=== PATIENT | female | born 2000 | race Caucasian/White ===

== ENCOUNTER 2020-06-25 10:46 | Emergency (ER) | payer OTHER ==
[2020-06-25 10:55] VITALS: RESP 18; TEMP 97.9
--- NOTE | 2020-06-25 11:07 | ED ---
General Adult HPI - General Chief complaint: Shortness of Breath Stated complaint: Asthma Time Seen by Provider: 06/25/20 10:47 Source: patient, EMS, RN notes reviewed Mode of arrival: EMS Limitations: no limitations - History of Present Illness Initial comments: 20-year-old female with a past medical history of asthma presents to the emergency room for shortness of breath. Patient woke up this morning and was short of breath. States she was having difficulty breathing. She text of her friend who was a police liaison officer and he called an ambulance for her. Patient denies cough or fever. Patient received an albuterol treatment in the ambulance and her symptoms completely resolved. Patient states she is not short of breath whatsoever at this time. Denies chest pain. States she feels back to baseline.Patient has no other complaints at this time including chest pain, abdominal pain, nausea or vomiting, headache, or visual changes. - Related Data Previous Rx's Medication Instructions Recorded Albuterol Inhaler [Ventolin Hfa 2 puff INHALATION RT-QID PRN #1 06/25/20 Inhaler] inhaler Allergies Allergy/AdvReac Type Severity Reaction Status Date / Time No Known Allergies Allergy Verified 03/02/16 18:01 Review of Systems ROS Statement: Those systems with pertinent positive or pertinent negative responses have been documented in the HPI. ROS Other: All systems not noted in ROS Statement are negative. Past Medical History Past Medical History: No Reported History History of Any Multi-Drug Resistant Organisms: None Reported Past Surgical History: No Surgical Hx Reported Past Psychological History: No Psychological Hx Reported Smoking Status: Former smoker Past Alcohol Use History: None Reported Past Drug Use History: Unable to Obtain General Exam Limitations: no limitations General appearance: alert, in no apparent distress Head exam: Present: atraumatic, normocephalic, normal inspection Eye exam: Present: normal appearance, PERRL, EOMI. Absent: scleral icterus, conjunctival injection, periorbital swelling ENT exam: Present: normal exam, mucous membranes moist Neck exam: Present: normal inspection, full ROM. Absent: tenderness, meningismus, lymphadenopathy Respiratory exam: Present: normal lung sounds bilaterally. Absent: respiratory distress, wheezes, rales, rhonchi, stridor Cardiovascular Exam: Present: regular rate, normal rhythm, normal heart sounds. Absent: systolic murmur, diastolic murmur, rubs, gallop, clicks GI/Abdominal exam: Present: soft, normal bowel sounds. Absent: distended, tenderness, guarding, rebound, rigid Extremities exam: Absent: calf tenderness (no calf tenderness or swelling bilat) Neurological exam: Present: alert Course Vital Signs 06/25/20 10:48 Temperature 97.9 F Pulse Rate 99 Respiratory 18 Rate Blood Pressure 121/88 O2 Sat by Pulse 99 Oximetry Medical Decision Making - Medical Decision Making Vitals are stable. Patient is 99% on room air. Lung sounds are clear. Patient is in no respiratory distress. She is sitting up having full conversational sentences. PERC negative, no oral contraceptives. Chest x-ray shows no acute cardiopulmonary process. At this time patient will be discharged home with inhaler given her history of asthma and she does not have an home. She will follow-up with her doctor. If she has any further shortness of breath or chest pain she will return to the emergency room. I discussed this case with attending Dr. Prado who agrees with this assessment and treatment plan. Disposition Clinical Impression: Shortness of breath, History of asthma Disposition: HOME SELF-CARE Condition: Good Instructions (If sedation given, give patient instructions): Asthma (ED) Additional Instructions: Please follow-up with your doctor in one to 2 days. If you have any worsening symptoms return to the emergency room. Prescriptions: Albuterol Inhaler [Ventolin Hfa Inhaler] 2 puff INHALATION RT-QID PRN #1 inhaler PRN Reason: Shortness Of Breath Is patient prescribed a controlled substance at d/c from ED?: No Referrals: Duncan Boss [STAFF PHYSICIAN] - 1-2 days Time of Disposition: 12:10
--- NOTE | 2020-06-25 11:36 | XR ---
EXAMINATION TYPE: XR chest 2V DATE OF EXAM: 06/25/2020 COMPARISON: NONE HISTORY: Shortness of breath. TECHNIQUE: Frontal and lateral views of the chest are obtained. FINDINGS: There is no focal air space opacity, pleural effusion, or pneumothorax seen. The cardiac silhouette size is within normal limits. The osseous structures are intact. Note is made of left-si ded arch, cardiac apex, and stomach bubble. IMPRESSION: No acute cardiopulmonary process.
[2020-06-25 12:27] VITALS: BP 122/83; PULSE 90
== END 2020-06-25 12:27 | disposition home or self-care (01) ==
LOC: EC 10:46
DX: R06.02 Shortness of breath (principal); Z87.09 Personal history of other diseases of the respiratory system; Z87.891 Personal history of nicotine dependence
CPT/HCPCS: 71046; 99285

== ENCOUNTER 2020-12-07 00:08 | Emergency (ER) | payer OTHER ==
[2020-12-07 00:12] LABS: Glucose,Whole Blood 72 mg/dL (75-99)
[2020-12-07] MEDS ORDERED: KETAMINE 10 MG/ML 20 ML VIAL IV STA (00:18)
[2020-12-07] MEDS ORDERED: ONDANSETRON 4 MG/2 ML VIAL IVP STA (00:20)
[2020-12-07] MEDS ORDERED: SODIUM CHLORIDE 0.9% 1,000 ML IV STA (00:21)
[2020-12-07] MEDS ORDERED: SODIUM CHLORIDE 0.9% 2,000 ML IV STA (00:21)
[2020-12-07] MEDS ORDERED: SODIUM CHLORIDE 0.9% 500 ML 500 ML IV STA (00:21)
[2020-12-07] MEDS ORDERED: IPRATROPIUM 0.5 MG/2.5 ML NEBU INHALATION STA ×2 (00:23→00:33)
[2020-12-07] MEDS ORDERED: TERBUTALINE 1 MG/ML VIAL SQ STA (00:24)
[2020-12-07] MEDS ORDERED: ALBUTEROL NEBULIZED 2.5 MG/3 ML INHALATION STA (00:31)
--- NOTE | 2020-12-07 00:37 | ED ---
Altered Mental Status HPI - General Chief Complaint: Altered Mental Status Stated Complaint: unresponsive Time Seen by Provider: 12/07/20 00:21 Source: patient, EMS, RN notes reviewed, old records reviewed Mode of arrival: EMS Limitations: altered mental status, physical limitation - History of Present Illness Initial Comments: This is a 20-year-old female who was unable to prevent history of presenting by EMS as a priority one patient. Patient's primary 1 secondary to unresponsiveness significant work of breathing and being obtunded. Patient is u nresponsive on arrival she is able to amply but really has no reaction to questioning. EMS states roommates who were with her son earlier in the day and then again tonight in this state, difficulty breathing with unresponsiveness. Oxygen was initially a little initially difficult to obtain per EMS. MD Complaint: altered mental status, decreased responsiveness, other (unr esponsive) -: unknown Severity: severe Consistency of Symptoms: constant Context: unknown (recent difficult month), other (asthma history) Associated Symptoms: shortness of breath Treatments Prior to Arrival: oxygen - Related Data Previous Rx's Medication Instructions Recorded Albuterol Inhaler [Ventolin Hfa 2 puff INHALATION RT-QID PRN #1 06/25/20 Inhaler] inhaler Allergies Allergy/AdvReac Type Severity Reaction Status Date / Time No Known Allergies Allergy Verified 12/07/20 00:19 Review of Systems ROS Statement: Those systems with pertinent positive or pertinent negative responses have been documented in the HPI. ROS Other: All systems not noted in ROS Statement are negative. Past Medical History Past Medical History: No Reported History History of Any Multi-Drug Resistant Organisms: None Reported Past Surgical History: No Surgical Hx Reported Past Psychological History: No Psychological Hx Reported Smoking Status: Former smoker Past Alcohol Use History: None Reported Past Drug Use History: Unable to Obtain General Exam Limitations: altered mental status, physical limitation General appearance: obtunded, in distress, cachectic Head exam: Present: atraumatic, normocephalic, normal inspection Eye exam: Present: normal appearance, PERRL, EOMI. Absent: scleral icterus, conjunctival injection, periorbital swelling ENT exam: Present: normal exam, mucous membranes dry Neck exam: Present: normal inspection. Absent: tenderness, meningismus, lymphadenopathy Respiratory exam: Present: normal lung sounds bilaterally. Absent: respiratory distress, wheezes, rales, rhonchi, stridor Cardiovascular Exam: Present: tachycardia, normal heart sounds. Absent: systolic murmur, diastolic murmur, rubs, gallop, clicks GI/Abdominal exam: Present: soft, normal bowel sounds. Absent: distended, tenderness, guarding, rebound, rigid Extremities exam: Present: normal inspection, full ROM, normal capillary refill. Absent: tenderness, pedal edema, joint swelling, calf tenderness Back exam: Present: normal inspection Neurological exam: Present: altered Skin exam: Present: dry, intact, normal color, pallor. Absent: warm (Will), rash Course Vital Signs 12/07/20 12/07/20 12/07/20 00:09 00:39 00:40 Temperature 102.1 F H Pulse Rate 124 H 134 H 128 H Respiratory 34 H 24 Rate Blood Pressure 140/94 115/63 O2 Sat by Pulse 90 L 100 Oximetry 12/07/20 12/07/20 12/07/20 01:37 02:27 03:32 Temperature Pulse Rate 130 H 124 H Respiratory 34 H Rate Blood Pressure O2 Sat by Pulse Oximetry 12/07/20 12/07/20 03:45 03:50 Temperature 95.9 F L Pulse Rate 125 H 129 H Respiratory 26 H Rate Blood Pressure 102/63 O2 Sat by Pulse 100 Oximetry - Reevaluation(s) Reevaluation #1: 12/07/20 04:42 Medical record is reviewed Reevaluation #2: 12/07/20 04:42 Patient is significantly obtunded upon arrival secondary severe respiratory distress and is intubated Reevaluation #3: 12/07/20 04:43 Further history obtained from brother states that family life his been difficult May both recently just lost her parents - Consultations Consultation #1: Spoke with [facility] Jaimes will agree to transfer except Medical Decision Making - Medical Decision Making 20-year-old female DF for evaluation patient is found to be in severe respiratory distress with respiratory failure and obtundation, could be underlying hypoxia and covert with status asthmaticus, patient is given antibiotics initially maintained on intubation secondary to severe for distress and inability to protect her airway. Patient remains altered and significant findings on computed tomography scan anoxic brain injury to be transferred [facility] Jaimes for further evaluation management. - Lab Data Result diagrams: 12/07/20 00:29 12/07/20 00:29 Lab Results 12/07/20 12/07/20 12/07/20 Range/Units 00:11 00:29 00:29 WBC 29.3 H (4.0-11.0) k/uL RBC 5.01 (3.80-5.40) m/uL Hgb 14.8 (11.4-16.0) gm/dL Hct 42.6 (34.0-46.0) % MCV 85.1 (80.0-100.0) fL MCH 29.6 (25.0-35.0) pg MCHC 34.8 (31.0-37.0) g/dL RDW 12.4 (11.5-15.5) % Plt Count 395 (150-450) k/uL MPV 7.3 Neutrophils % 78 % Lymphocytes % 16 % Monocytes % 4 % Eosinophils % 1 % Basophils % 1 % Neutrophils # 22.7 H (1.3-7.7) k/uL Lymphocytes # 4.6 (1.0-4.8) k/uL Monocytes # 1.2 H (0-1.0) k/uL Eosinophils # 0.3 (0-0.7) k/uL Basophils # 0.2 (0-0.2) k/uL PT 12.6 H (9.0-12.0) sec INR 1.2 H (<1.2) APTT 28.1 (22.0-30.0) sec D-Dimer 20.89 H (<0.60) mg/L FEU Sample Site ABG pH (7.35-7.45) ABG pCO2 (35-45) mmHg ABG pO2 (83-108) mmHg ABG HCO3 (21-25) mmol/L ABG Total CO2 (19-24) mmol/L ABG O2 Saturation (94-97) % ABG Base Excess mmol/L Isma Test VBG pH (7.31-7.41) VBG pCO2 (37-51) mmHg VBG HCO3 (24-28) mmol/L Carbon Monoxide, Quant (<10.0) % FiO2 % Sodium (137-145) mmol/L Potassium (3.5-5.1) mmol/L Chloride (98-107) mmol/L Carbon Dioxide (22-30) mmol/L Anion Gap mmol/L BUN (7-17) mg/dL Creatinine (0.52-1.04) mg/dL Est GFR (CKD-EPI)AfAm (>60 ml/min/1.73 sqM) Est GFR (CKD-EPI)NonAf (>60 ml/min/1.73 sqM) Glucose (74-99) mg/dL POC Glucose (mg/dL) 72 L (75-99) mg/dL POC Glu Clothing Room Supervisor ID Christine Ibarra Lactic Ac Sepsis Rflx Plasma Lactic Acid Oleg (0.7-2.0) mmol/L Calcium (8.4-10.2) mg/dL Magnesium (1.6-2.3) mg/dL Total Bilirubin (0.2-1.3) mg/dL AST (14-36) U/L ALT (4-34) U/L Alkaline Phosphatase (38-126) U/L Ammonia (<30) umol/L Lactate Dehydrogenase (313-618) U/L Troponin I (0.000-0.034) ng/mL C-Reactive Protein (<1.0) mg/dL NT-Pro-B Natriuret Pep pg/mL Total Protein (6.3-8.2) g/dL Albumin (3.5-5.0) g/dL TSH (0.465-4.680) mIU/L Free T4 (0.78-2.19) ng/dL Urine HCG, Qual (Not Detectd) Salicylates mg/dL Urine Opiates Screen (NotDetected) Ur Oxycodone Screen (NotDetected) Urine Methadone Screen (NotDetected) Ur Propoxyphene Screen (NotDetected) Acetaminophen ug/mL Ur Barbiturates Screen (NotDetected) U Tricyclic Antidepress (NotDetected) Ur Phencyclidine Scrn (NotDetected) Ur Amphetamines Screen (NotDetected) U Methamphetamines Scrn (NotDetected) U Benzodiazepines Scrn (NotDetected) Urine Cocaine Screen (NotDetected) U Marijuana (THC) Screen (NotDetected) Serum Alcohol mg/dL Coronavirus (PCR) (Not Detectd) 12/07/20 12/07/20 12/07/20 Range/Units 00:29 00:29 00:29 WBC (4.0-11.0) k/uL RBC (3.80-5.40) m/uL Hgb (11.4-16.0) gm/dL Hct (34.0-46.0) % MCV (80.0-100.0) fL MCH (25.0-35.0) pg MCHC (31.0-37.0) g/dL RDW (11.5-15.5) % Plt Count (150-450) k/uL MPV Neutrophils % % Lymphocytes % % Monocytes % % Eosinophils % % Basophils % % Neutrophils # (1.3-7.7) k/uL Lymphocytes # (1.0-4.8) k/uL Monocytes # (0-1.0) k/uL Eosinophils # (0-0.7) k/uL Basophils # (0-0.2) k/uL PT (9.0-12.0) sec INR (<1.2) APTT (22.0-30.0) sec D-Dimer (<0.60) mg/L FEU Sample Site ABG pH (7.35-7.45) ABG pCO2 (35-45) mmHg ABG pO2 (83-108) mmHg ABG HCO3 (21-25) mmol/L ABG Total CO2 (19-24) mmol/L ABG O2 Saturation (94-97) % ABG Base Excess mmol/L Isma Test VBG pH (7.31-7.41) VBG pCO2 (37-51) mmHg VBG HCO3 (24-28) mmol/L Carbon Monoxide, Quant (<10.0) % FiO2 % Sodium 138 (137-145) mmol/L Potassium 3.7 (3.5-5.1) mmol/L Chloride 107 (98-107) mmol/L Carbon Dioxide 18 L (22-30) mmol/L Anion Gap 13 mmol/L BUN 8 (7-17) mg/dL Creatinine 0.62 (0.52-1.04) mg/dL Est GFR (CKD-EPI)AfAm >90 (>60 ml/min/1.73 sqM) Est GFR (CKD-EPI)NonAf >90 (>60 ml/min/1.73 sqM) Glucose 66 L (74-99) mg/dL POC Glucose (mg/dL) (75-99) mg/dL POC Glu Clothing Room Supervisor ID Lactic Ac Sepsis Rflx Plasma Lactic Acid Oleg 5.1 H* (0.7-2.0) mmol/L Calcium 8.7 (8.4-10.2) mg/dL Magnesium 1.7 (1.6-2.3) mg/dL Total Bilirubin 1.4 H (0.2-1.3) mg/dL AST 43 H (14-36) U/L ALT 15 (4-34) U/L Alkaline Phosphatase 78 (38-126) U/L Ammonia 25 (<30) umol/L Lactate Dehydrogenase 1247 H (313-618) U/L Troponin I (0.000-0.034) ng/mL C-Reactive Protein 7.9 H (<1.0) mg/dL NT-Pro-B Natriuret Pep pg/mL Total Protein 6.6 (6.3-8.2) g/dL Albumin 3.6 (3.5-5.0) g/dL TSH (0.465-4.680) mIU/L Free T4 (0.78-2.19) ng/dL Urine HCG, Qual (Not Detectd) Salicylates <1.0 mg/dL Urine Opiates Screen (NotDetected) Ur Oxycodone Screen (NotDetected) Urine Methadone Screen (NotDetected) Ur Propoxyphene Screen (NotDetected) Acetaminophen <10.0 ug/mL Ur Barbiturates Screen (NotDetected) U Tricyclic Antidepress (NotDetected) Ur Phencyclidine Scrn (NotDetected) Ur Amphetamines Screen (NotDetected) U Methamphetamines Scrn (NotDetected) U Benzodiazepines Scrn (NotDetected) Urine Cocaine Screen (NotDetected) U Marijuana (THC) Screen (NotDetected) Serum Alcohol <10 mg/dL Coronavirus (PCR) Not Detected (Not Detectd) 12/07/20 12/07/20 12/07/20 Range/Units 00:29 00:29 00:30 WBC (4.0-11.0) k/uL RBC (3.80-5.40) m/uL Hgb (11.4-16.0) gm/dL Hct (34.0-46.0) % MCV (80.0-100.0) fL MCH (25.0-35.0) pg MCHC (31.0-37.0) g/dL RDW (11.5-15.5) % Plt Count (150-450) k/uL MPV Neutrophils % % Lymphocytes % % Monocytes % % Eosinophils % % Basophils % % Neutrophils # (1.3-7.7) k/uL Lymphocytes # (1.0-4.8) k/uL Monocytes # (0-1.0) k/uL Eosinophils # (0-0.7) k/uL Basophils # (0-0.2) k/uL PT (9.0-12.0) sec INR (<1.2) APTT (22.0-30.0) sec D-Dimer (<0.60) mg/L FEU Sample Site ABG pH (7.35-7.45) ABG pCO2 (35-45) mmHg ABG pO2 (83-108) mmHg ABG HCO3 (21-25) mmol/L ABG Total CO2 (19-24) mmol/L ABG O2 Saturation (94-97) % ABG Base Excess mmol/L Isma Test VBG pH (7.31-7.41) VBG pCO2 (37-51) mmHg VBG HCO3 (24-28) mmol/L Carbon Monoxide, Quant (<10.0) % FiO2 % Sodium (137-145) mmol/L Potassium (3.5-5.1) mmol/L Chloride (98-107) mmol/L Carbon Dioxide (22-30) mmol/L Anion Gap mmol/L BUN (7-17) mg/dL Creatinine (0.52-1.04) mg/dL Est GFR (CKD-EPI)AfAm (>60 ml/min/1.73 sqM) Est GFR (CKD-EPI)NonAf (>60 ml/min/1.73 sqM) Glucose (74-99) mg/dL POC Glucose (mg/dL) (75-99) mg/dL POC Glu Clothing Room Supervisor ID Lactic Ac Sepsis Rflx Plasma Lactic Acid Oleg (0.7-2.0) mmol/L Calcium (8.4-10.2) mg/dL Magnesium (1.6-2.3) mg/dL Total Bilirubin (0.2-1.3) mg/dL AST (14-36) U/L ALT (4-34) U/L Alkaline Phosphatase (38-126) U/L Ammonia (<30) umol/L Lactate Dehydrogenase (313-618) U/L Troponin I 0.238 H* (0.000-0.034) ng/mL C-Reactive Protein (<1.0) mg/dL NT-Pro-B Natriuret Pep 802 pg/mL Total Protein (6.3-8.2) g/dL Albumin (3.5-5.0) g/dL TSH (0.465-4.680) mIU/L Free T4 (0.78-2.19) ng/dL Urine HCG, Qual (Not Detectd) Salicylates mg/dL Urine Opiates Screen Not Detected (NotDetected) Ur Oxycodone Screen Not Detected (NotDetected) Urine Methadone Screen Not Detected (NotDetected) Ur Propoxyphene Screen Not Detected (NotDetected) Acetaminophen ug/mL Ur Barbiturates Screen Not Detected (NotDetected) U Tricyclic Antidepress Not Detected (NotDetected) Ur Phencyclidine Scrn Not Detected (NotDetected) Ur Amphetamines Screen Not Detected (NotDetected) U Methamphetamines Scrn Not Detected (NotDetected) U Benzodiazepines Scrn Not Detected (NotDetected) Urine Cocaine Screen Not Detected (NotDetected) U Marijuana (THC) Screen Detected H (NotDetected) Serum Alcohol mg/dL Coronavirus (PCR) (Not Detectd) 12/07/20 12/07/20 12/07/20 Range/Units 00:43 00:44 01:18 WBC (4.0-11.0) k/uL RBC (3.80-5.40) m/uL Hgb (11.4-16.0) gm/dL Hct (34.0-46.0) % MCV (80.0-100.0) fL MCH (25.0-35.0) pg MCHC (31.0-37.0) g/dL RDW (11.5-15.5) % Plt Count (150-450) k/uL MPV Neutrophils % % Lymphocytes % % Monocytes % % Eosinophils % % Basophils % % Neutrophils # (1.3-7.7) k/uL Lymphocytes # (1.0-4.8) k/uL Monocytes # (0-1.0) k/uL Eosinophils # (0-0.7) k/uL Basophils # (0-0.2) k/uL PT (9.0-12.0) sec INR (<1.2) APTT (22.0-30.0) sec D-Dimer (<0.60) mg/L FEU Sample Site ABG pH (7.35-7.45) ABG pCO2 (35-45) mmHg ABG pO2 (83-108) mmHg ABG HCO3 (21-25) mmol/L ABG Total CO2 (19-24) mmol/L ABG O2 Saturation (94-97) % ABG Base Excess mmol/L Isma Test VBG pH (7.31-7.41) VBG pCO2 (37-51) mmHg VBG HCO3 (24-28) mmol/L Carbon Monoxide, Quant (<10.0) % FiO2 % Sodium (137-145) mmol/L Potassium (3.5-5.1) mmol/L Chloride (98-107) mmol/L Carbon Dioxide (22-30) mmol/L Anion Gap mmol/L BUN (7-17) mg/dL Creatinine (0.52-1.04) mg/dL Est GFR (CKD-EPI)AfAm (>60 ml/min/1.73 sqM) Est GFR (CKD-EPI)NonAf (>60 ml/min/1.73 sqM) Glucose (74-99) mg/dL POC Glucose (mg/dL) (75-99) mg/dL POC Glu Clothing Room Supervisor ID Lactic Ac Sepsis Rflx Y Plasma Lactic Acid Oleg (0.7-2.0) mmol/L Calcium (8.4-10.2) mg/dL Magnesium (1.6-2.3) mg/dL Total Bilirubin (0.2-1.3) mg/dL AST (14-36) U/L ALT (4-34) U/L Alkaline Phosphatase (38-126) U/L Ammonia (<30) umol/L Lactate Dehydrogenase (313-618) U/L Troponin I (0.000-0.034) ng/mL C-Reactive Protein (<1.0) mg/dL NT-Pro-B Natriuret Pep pg/mL Total Protein (6.3-8.2) g/dL Albumin (3.5-5.0) g/dL TSH 7.340 H (0.465-4.680) mIU/L Free T4 1.12 (0.78-2.19) ng/dL Urine HCG, Qual Not Detected (Not Detectd) Salicylates mg/dL Urine Opiates Screen (NotDetected) Ur Oxycodone Screen (NotDetected) Urine Methadone Screen (NotDetected) Ur Propoxyphene Screen (NotDetected) Acetaminophen ug/mL Ur Barbiturates Screen (NotDetected) U Tricyclic Antidepress (NotDetected) Ur Phencyclidine Scrn (NotDetected) Ur Amphetamines Screen (NotDetected) U Methamphetamines Scrn (NotDetected) U Benzodiazepines Scrn (NotDetected) Urine Cocaine Screen (NotDetected) U Marijuana (THC) Screen (NotDetected) Serum Alcohol mg/dL Coronavirus (PCR) (Not Detectd) 12/07/20 12/07/20 12/07/20 Range/Units 01:38 01:38 01:38 WBC (4.0-11.0) k/uL RBC (3.80-5.40) m/uL Hgb (11.4-16.0) gm/dL Hct (34.0-46.0) % MCV (80.0-100.0) fL MCH (25.0-35.0) pg MCHC (31.0-37.0) g/dL RDW (11.5-15.5) % Plt Count (150-450) k/uL MPV Neutrophils % % Lymphocytes % % Monocytes % % Eosinophils % % Basophils % % Neutrophils # (1.3-7.7) k/uL Lymphocytes # (1.0-4.8) k/uL Monocytes # (0-1.0) k/uL Eosinophils # (0-0.7) k/uL Basophils # (0-0.2) k/uL PT (9.0-12.0) sec INR (<1.2) APTT (22.0-30.0) sec D-Dimer (<0.60) mg/L FEU Sample Site rbrac ABG pH 7.15 L* (7.35-7.45) ABG pCO2 42 (35-45) mmHg ABG pO2 >400 H (83-108) mmHg ABG HCO3 15 L (21-25) mmol/L ABG Total CO2 16 L (19-24) mmol/L ABG O2 Saturation 100.0 H (94-97) % ABG Base Excess -14.3 mmol/L Isma Test Yes VBG pH 7.06 L* (7.31-7.41) VBG pCO2 48 (37-51) mmHg VBG HCO3 13 L (24-28) mmol/L Carbon Monoxide, Quant 2.4 (<10.0) % FiO2 100 % Sodium (137-145) mmol/L Potassium (3.5-5.1) mmol/L Chloride (98-107) mmol/L Carbon Dioxide (22-30) mmol/L Anion Gap mmol/L BUN (7-17) mg/dL Creatinine (0.52-1.04) mg/dL Est GFR (CKD-EPI)AfAm (>60 ml/min/1.73 sqM) Est GFR (CKD-EPI)NonAf (>60 ml/min/1.73 sqM) Glucose (74-99) mg/dL POC Glucose (mg/dL) (75-99) mg/dL POC Glu Clothing Room Supervisor ID Lactic Ac Sepsis Rflx Plasma Lactic Acid Oleg (0.7-2.0) mmol/L Calcium (8.4-10.2) mg/dL Magnesium (1.6-2.3) mg/dL Total Bilirubin (0.2-1.3) mg/dL AST (14-36) U/L ALT (4-34) U/L Alkaline Phosphatase (38-126) U/L Ammonia (<30) umol/L Lactate Dehydrogenase (313-618) U/L Troponin I (0.000-0.034) ng/mL C-Reactive Protein (<1.0) mg/dL NT-Pro-B Natriuret Pep pg/mL Total Protein (6.3-8.2) g/dL Albumin (3.5-5.0) g/dL TSH (0.465-4.680) mIU/L Free T4 (0.78-2.19) ng/dL Urine HCG, Qual (Not Detectd) Salicylates mg/dL Urine Opiates Screen (NotDetected) Ur Oxycodone Screen (NotDetected) Urine Methadone Screen (NotDetected) Ur Propoxyphene Screen (NotDetected) Acetaminophen ug/mL Ur Barbiturates Screen (NotDetected) U Tricyclic Antidepress (NotDetected) Ur Phencyclidine Scrn (NotDetected) Ur Amphetamines Screen (NotDetected) U Methamphetamines Scrn (NotDetected) U Benzodiazepines Scrn (NotDetected) Urine Cocaine Screen (NotDetected) U Marijuana (THC) Screen (NotDetected) Serum Alcohol mg/dL Coronavirus (PCR) (Not Detectd) - EKG Data -: EKG Interpreted by Me (EKG shows sinus tachycardia 138 VA 130 QRS 70 QTc 472) - Radiology Data Radiology results: report reviewed (Chest x-ray shows bilateral pulmonary infiltrates, CT brain C-spine shows anoxic brain injury, CTA chest is negative for PE but does show bilateral pulmonary infiltrates as well as pneumomediastinum), image reviewed Critical Care Time Critical Care Time: Yes Total Critical Care Time: 95 Disposition Clinical Impression: Altered mental status, Sepsis with acute hypoxic respiratory failure, Asthmaticus, status, Delirium due to general medical condition, Anoxic brain injury, Lactic acidosis, Fever, Leukocytosis, Pneumomediastinum Disposition: OTHER INSTITUTION NOT DEFINED Condition: Critical Is patient prescribed a controlled substance at d/c from ED?: No Referrals: None,Stated [Primary Care Provider] - 1-2 days - Out of Hospital Transfer - Req. Specs Out of Hospital Transfer - Requested Specifics: Other Emergency Center ([facility]
[2020-12-07] MEDS ORDERED: methylPREDNISolone SOD SUCCI 125 MG/2 ML VIAL IV STA (00:41)
--- NOTE | 2020-12-07 00:42 | XR ---
EXAM: XR Chest, 1 View CLINICAL HISTORY: ITS.REASON XR Reason: Suspected COVID-19 pneumonia TECHNIQUE: Frontal view of the chest. COMPARISON: No relevant prior studies available. FINDINGS: Endotracheal tube terminates 4.5 cm above the level of the nel. Orogastric tube terminates below [id number] in the left upper quadrant, likely residing in the body of the stomach. Mild bilateral perihilar patchy opacities. No pleural effusions or pneumothorax. No displaced fractures. IMPRESSION: 1. Endotracheal tube terminates 4.5 cm above the level of the nel. Orogastric tube terminates below [id number] in the left upper quadrant, likely residing in the body of the stomach. 2. Mild bilateral perihilar patchy opacities compatible with multifocal infection.
[2020-12-07] MEDS ORDERED: AZITHROMYCIN 500 MG in SODIUM CHLORIDE 0.9% 250 ML IVPB ONE (00:45)
[2020-12-07 00:51] LABS: Basophils # (A) 0.2 k/uL (0-0.2); Basophils % (A) 1 %; Eosinophils # (A) 0.3 k/uL (0-0.7); Eosinophils % (A) 1 %; HCT 42.6 % (34.0-46.0); HGB 14.8 gm/dL (11.4-16.0); Lymphocytes # (A) 4.6 k/uL (1.0-4.8); Lymphocytes % (A) 16 %; MCH 29.6 pg (25.0-35.0); MCHC 34.8 g/dL (31.0-37.0); MCV 85.1 fL (80.0-100.0); Mean Platelet Volume 7.3; Monocytes # (A) 1.2 k/uL (0-1.0); Monocytes % (A) 4 %; Neutrophils # (A) 22.7 k/uL (1.3-7.7); Neutrophils % (A) 78 %; Platelet Count 395 k/uL (150-450); RBC 5.01 m/uL (3.80-5.40); RDW 12.4 % (11.5-15.5); WBC 29.3 k/uL (4.0-11.0)
[2020-12-07] MEDS ORDERED: IBUPROFEN IV 400 MG in SODIUM CHLORIDE 0.9% 100 ML IV ONE (01:00)
[2020-12-07] MEDS ORDERED: ACETAMINOPHEN IV (For NPO) 750 MG in EMPTY BAG 1 BAG IVPB ONE (01:00)
[2020-12-07 01:04] LABS: ALT 15 U/L (4-34); Acetaminophen <10.0 ug/mL; African American GFR (CKD) >90 (>60 ml/min/1.73 sqM); Albumin 3.6 g/dL (3.5-5.0); Alcohol <10 mg/dL; Anion Gap 13 mmol/L; Blood Urea Nitrogen 8 mg/dL (7-17); C Reactive Protein 7.9 mg/dL (<1.0); Calcium 8.7 mg/dL (8.4-10.2); Carbon Dioxide 18 mmol/L (22-30); Chloride 107 mmol/L (98-107); Glucose 66 mg/dL (74-99); Non-African American GFR(CKD) >90 (>60 ml/min/1.73 sqM); Salicylate <1.0 mg/dL; Sodium 138 mmol/L (137-145); Total Bilirubin 1.4 mg/dL (0.2-1.3); Total Protein 6.6 g/dL (6.3-8.2)
[2020-12-07 01:13] LABS: Amphetamine Screen,Urine Not Detected (NotDetected); Barbiturate Screen,Urine Not Detected (NotDetected); Benzodiazepines Screen,Urine Not Detected (NotDetected); Cocaine Screen,Urine Not Detected (NotDetected); Methadone Screen, Urine Not Detected (NotDetected); Opiate Screen,Urine Not Detected (NotDetected); Oxycodone Screen, Urine Not Detected (NotDetected); Phencyclidine Screen,Urine Not Detected (NotDetected); Tricyclic Antidepressant,Urine Not Detected (NotDetected); Urn Cannabinoid Scrn Detected (NotDetected)
[2020-12-07 01:16] LABS: AST 43 U/L (14-36); Alkaline Phosphatase 78 U/L (38-126); LDH 1247 U/L (313-618); Magnesium 1.7 mg/dL (1.6-2.3); Potassium 3.7 mmol/L (3.5-5.1)
[2020-12-07 01:17] LABS: INR 1.2 (<1.2); Partial Thromboplastin Time 28.1 sec (22.0-30.0); Prothrombin Time 12.6 sec (9.0-12.0)
[2020-12-07 01:18] LABS: D-Dimer 20.89 mg/L FEU (<0.60); Lactic Acid, Venous 5.1 mmol/L (0.7-2.0)
[2020-12-07] MEDS ORDERED: DEXTROSE 50% SYRINGE 50 ML IVP STA (01:18)
[2020-12-07] MEDS ORDERED: DEXTROSE 5%-0.45% NACL 1,000 ML IV ONE (01:18)
[2020-12-07] MEDS ORDERED: cefTRIAXone IN SWFI 1,000 MG/10 ML SYRINGE IVP ONE (01:30)
--- NOTE | 2020-12-07 01:36 | CT ---
EXAM: CT Head Without Intravenous Contrast CLINICAL HISTORY: ITS.REASON CT Reason: ams TECHNIQUE: Axial computed tomography images of the head/brain without intravenous contrast. CTDI is 27.035 mGy and DLP is 638.1 mGy-cm. This CT exam was performed using one or more of the following dose reduction techniques: automated exposure control, adjustment of the mA and/or kV according to patient size, and/or use of iterative reconstruction technique. COMPARISON: No relevant prior studies available. FINDINGS: Brain: Unremarkable. No hemorrhage. No significant white matter disease. No edema. Cowan-white differentiation is preserved throughout the cerebral hemispheres. Ventricles: Mild diffuse sulcal effacement with effacement of the basilar cisterns . No ventriculomegaly. Bones/joints: Unremarkable. No acute fracture. Soft tissues: Unremarkable. Sinuses: Fluid opacification of the nasopharynx and mild opacification of the bilateral maxillary sinus and ethmoid air cells and sphenoid sinus compatible with recent intubation.. Mastoid air cells: Unremarkable as visualized. No mastoid effusion. IMPRESSION: There is mild diffuse sulcal effacement with effacement of the basilar cisterns suggestive of hypoxic-ischemic injury. MRI may be obtained for more sensitive evaluation if clinically indicated. EXAM: CT Cervical Spine Without Intravenous Contrast CLINICAL HISTORY: ITS.REASON CT Reason: ams TECHNIQUE: Axial computed tomography images of the cervical spine without intravenous contrast. CTDI is 27.035 mGy and DLP is 638.1 mGy-cm. This CT exam was performed using one or more of the following dose reduction techniques: automated exposure control, adjustment of the mA and/or kV according to patient size, and/or use of iterative reconstruction technique. COMPARISON: No relevant prior studies available. FINDINGS: Vertebrae: Unremarkable. No acute fracture. Vertebral body heights are maintained. No spondylolisthesis. Discs/spinal canal/neural foramina: No acute findings. No spinal canal stenosis. No significant spinal canal or osseous foraminal narrowing. Soft tissues: Endotracheal tube and orogastric tube in place. IMPRESSION: No CT evidence of acute traumatic injury to the cervical spine. <MYCVCSECTION> Communications: 12/07/20 01:33 Call Doctor Regarding Other, called Dr. Salinas on 12/07 01:34 (-04:00)
[2020-12-07] MEDS: MAGNESIUM SULFATE-D5W PMX 1 GM in DEXTROSE/WATER 1 100ML.BAG IVPB SCH ×2 (01:43→02:52)
[2020-12-07 01:53] LABS: ABG Base Excess -14.3 mmol/L; ABG HCO3 15 mmol/L (21-25); ABG PCO2 42 mmHg (35-45); ABG PO2 >400 mmHg (83-108); ABG TCO2 16 mmol/L (19-24); Allen Test Performed? Yes
[2020-12-07 02:05] LABS: ABG PH 7.15 (7.35-7.45)
[2020-12-07] MEDS ORDERED: MIDAZOLAM 1 MG/ML 5 ML VIAL IV STA ×2 (02:46→06:08)
[2020-12-07 02:49] LABS: VBG PH 7.06 (7.31-7.41)
[2020-12-07] MEDS ORDERED: IPRATROPIUM-ALBUTEROL 3 ML NEB INHALATION STA (03:28)
--- NOTE | 2020-12-07 03:51 | CT ---
EXAM: CT Angiography Chest With Intravenous Contrast CLINICAL HISTORY: ITS.REASON CT Reason: PE TECHNIQUE: Axial computed tomographic angiography images of the chest with intravenous contrast. CTDI is 7.17 mGy and DLP is 229.2 mGy-cm. This CT exam was performed using one or more of the following dose reduction techniques: automated exposure control, adjustment of the mA and/or kV according to patient size, and/or use of iterative reconstruction technique. MIP reconstructed images were created and reviewed. COMPARISON: No relevant prior studies available. FINDINGS: Pulmonary arteries: Unremarkable. No pulmonary embolism. Aorta: No acute findings. No thoracic aortic aneurysm. Lungs: Unremarkable. No mass. No consolidation. Pleural space: Unremarkable. No significant effusion. No pneumothorax. Heart: Trace pneumomediastinum with air tracking adjacent to the trachea, bilateral mainstem bronchi, right lower lobe bronchi and into the superior mediastinum. No cardiomegaly. No significant pericardial effusion. No evidence of RV dysfunction. Bones/joints: No acute fracture. No dislocation. Soft tissues: Unremarkable. Lymph nodes: Unremarkable. No enlarged lymph nodes. Lines and tubes: Endotracheal tube in place terminating above the level of the nel. Orogastric tube terminates in the body of the stomach. IMPRESSION: 1. No acute pulmonary embolism. 2. Trace pneumomediastinum with air tracking adjacent to the trachea, bilateral mainstem bronchi, right lower lobe bronchi and into the superior mediastinum. 3. Patchy peripheral areas of ground-glass and nodular consolidation compatible with multifocal infection, consistent with viral infection.
[2020-12-07 03:52] LABS: T4, Free (Free Thyroxine) 1.12 ng/dL (0.78-2.19)
[2020-12-07 05:38] VITALS: BP 99/67; PULSE 123; RESP 26; TEMP 97
[2020-12-07] MEDS ORDERED: fentaNYL (PF) 50 MCG/ML 2 ML AMP IVP STA (05:39)
[2020-12-07] MEDS ORDERED: methylPREDNISolone SOD SUCCI 125 MG/2 ML VIAL IV SCH (06:00)
[2020-12-07 13:15] LABS: Ferritin 102.6 ng/mL (10.0-291.0)
== END 2020-12-07 06:11 | disposition other institution (70) ==
LOC: EC 00:08
DX: A41.9 Sepsis, unspecified organism (principal); R65.20 Severe sepsis without septic shock; J96.01 Acute respiratory failure with hypoxia; F05 Delirium due to known physiological condition; J98.2 Interstitial emphysema; R41.82 Altered mental status, unspecified; E87.2 Acidosis; J45.909 Unspecified asthma, uncomplicated; Z87.891 Personal history of nicotine dependence
CPT/HCPCS: 31500; 99291; 99292; 96372; 96365; 96366; 96375 ×9; 96368; 96367; 96361; 36415; 94640; 36600; 94002; 94644; 93005; 85379; 84439; 83880; 80053; 84443; 82728; 82140; 82375; 82805; 82803; 83605; 83615; 83735; 84484; 85025; 85610; 85730; 86140; 81025; 87040; 80306; 80143; 87070; 87205; 84145; 87635; 80179; 71045; 72125; 70450; 71275; G0480; J3105; J2930; J2405; J0456; J0696; J2250; J3010; J3475; J0131; J1741; Q9967; 80320

== ENCOUNTER 2021-03-07 15:44 | Emergency (ER) | payer OTHER ==
[2021-03-07] MEDS ORDERED: ACETAMINOPHEN TAB 500 MG TAB PO STA (16:13)
[2021-03-07] MEDS ORDERED: IBUPROFEN 600 MG TAB PO STA (16:13)
--- NOTE | 2021-03-07 17:45 | XR ---
EXAMINATION TYPE: XR chest 2V DATE OF EXAM: 03/07/2021 COMPARISON: 12/07/2020. HISTORY: Cough and fever. TECHNIQUE: Frontal and lateral views of the chest are obtained. FINDINGS: There is left infrahilar opacity. No pleural effusion, or pneumothorax seen. The cardiac silhouette size is within normal limits. The osseous structures are intact. IMPRESSION: Left bibasilar infiltrate in the appropriate clinical setting.
--- NOTE | 2021-03-07 18:01 | ED ---
General Adult HPI - General Chief complaint: Fever Stated complaint: covid symptoms Time Seen by Provider: 03/07/21 15:52 Source: patient, EMS, RN notes reviewed Mode of arrival: EMS Limitations: no limitations - History of Present Illness Initial comments: 20-year-old female presents to the emergency room for a chief complaint of cough. Patient states she has had a cough for 3 days. Patient also has congestion and a sore throat. Patient states today she feels hot like she has a fever. She took Motrin earlier this morning but has not taken anything since. Patient that she was recently diagnosed with a PE and a stroke. States that she has not been on blood thinners since just the hospital. She did not follow up with her doctor.Patient has no other complaints at this time including shortness of breath, chest pain, abdominal pain, nausea or vomiting, headache, or visual changes. - Related Data Previous Rx's Medication Instructions Recorded Azithromycin [Zithromax Z-pack (6 250 mg PO DIRECTED #6 tab 03/07/21 tabs)] Allergies Allergy/AdvReac Type Severity Reaction Status Date / Time cat dander Allergy Rash/Hives Verified 03/07/21 16:55 cat's claw Allergy Swelling Verified 03/07/21 16:55 Review of Systems ROS Statement: Those systems with pertinent positive or pertinent negative responses have been documented in the HPI. ROS Other: All systems not noted in ROS Statement are negative. Past Medical History Past Medical History: CVA/TIA, Pulmonary Embolus (PE) History of Any Multi-Drug Resistant Organisms: None Reported Past Surgical History: No Surgical Hx Reported Past Psychological History: No Psychological Hx Reported Smoking Status: Former smoker Past Alcohol Use History: None Reported Past Drug Use History: Unable to Obtain General Exam Limitations: no limitations General appearance: alert, in no apparent distress Head exam: Present: atraumatic, normocephalic, normal inspection Eye exam: Present: normal appearance, PERRL, EOMI. Absent: scleral icterus, conjunctival injection, periorbital swelling ENT exam: Present: normal exam, mucous membranes moist Neck exam: Present: normal inspection, full ROM. Absent: tenderness, meningismus, lymphadenopathy Respiratory exam: Present: normal lung sounds bilaterally. Absent: respiratory distress, wheezes, rales, rhonchi, stridor Cardiovascular Exam: Present: regular rate, normal rhythm, normal heart sounds. Absent: systolic murmur, diastolic murmur, rubs, gallop, clicks GI/Abdominal exam: Present: soft, normal bowel sounds. Absent: distended, tenderness, guarding, rebound, rigid Neurological exam: Present: alert Course Vital Signs 03/07/21 15:50 Temperature 100.3 F H Pulse Rate 112 H Respiratory 18 Rate O2 Sat by Pulse 97 Oximetry Medical Decision Making - Medical Decision Making Vitals are stable. Patient initially tachycardic which is likely reflexive from fever. Influenza, coronavirus, strep are all negative. Chest x-ray was obtained which showed a left bibasilar pneumonia, is clinically correlated at this time. Laboratory evaluation showed a normal white count with a normal d- dimer of 0.59. Troponin negative. At this and patient was discharged home to follow up with primary care. Did recommend she repeat her sodium levels of there were borderline low. Also recommended she discuss possibility of needing blood thinners with PCP. Recommend she return here for any worsening symptoms. - Lab Data Result diagrams: 03/07/21 18:46 03/07/21 18:46 Lab Results 03/07/21 03/07/21 03/07/21 Range/Units 16:41 16:41 16:41 WBC (4.0-11.0) k/uL RBC (3.80-5.40) m/uL Hgb (11.4-16.0) gm/dL Hct (34.0-46.0) % MCV (80.0-100.0) fL MCH (25.0-35.0) pg MCHC (31.0-37.0) g/dL RDW (11.5-15.5) % Plt Count (150-450) k/uL MPV Neutrophils % % Lymphocytes % % Monocytes % % Eosinophils % % Basophils % % Neutrophils # (1.3-7.7) k/uL Lymphocytes # (1.0-4.8) k/uL Monocytes # (0-1.0) k/uL Eosinophils # (0-0.7) k/uL Basophils # (0-0.2) k/uL D-Dimer (<0.60) mg/L FEU Sodium (137-145) mmol/L Potassium (3.5-5.1) mmol/L Chloride (98-107) mmol/L Carbon Dioxide (22-30) mmol/L Anion Gap mmol/L BUN (7-17) mg/dL Creatinine (0.52-1.04) mg/dL Est GFR (CKD-EPI)AfAm (>60 ml/min/1.73 sqM) Est GFR (CKD-EPI)NonAf (>60 ml/min/1.73 sqM) Glucose (74-99) mg/dL Calcium (8.4-10.2) mg/dL Troponin I (0.000-0.034) ng/mL Coronavirus (PCR) Not Detected (Not Detectd) Influenza Type A RNA Not Detected (Not Detectd) Influenza Type B (PCR) Not Detected (Not Detectd) Group A Strep Rapid Negative (Negative) 03/07/21 03/07/21 03/07/21 Range/Units 18:46 18:46 18:46 WBC 5.4 (4.0-11.0) k/uL RBC 4.99 (3.80-5.40) m/uL Hgb 14.9 (11.4-16.0) gm/dL Hct 41.7 (34.0-46.0) % MCV 83.6 (80.0-100.0) fL MCH 29.8 (25.0-35.0) pg MCHC 35.6 (31.0-37.0) g/dL RDW 13.2 (11.5-15.5) % Plt Count 234 (150-450) k/uL MPV 7.6 Neutrophils % 59 % Lymphocytes % 27 % Monocytes % 6 % Eosinophils % 4 % Basophils % 1 % Neutrophils # 3.2 (1.3-7.7) k/uL Lymphocytes # 1.5 (1.0-4.8) k/uL Monocytes # 0.3 (0-1.0) k/uL Eosinophils # 0.2 (0-0.7) k/uL Basophils # 0.0 (0-0.2) k/uL D-Dimer 0.59 (<0.60) mg/L FEU Sodium 131 L (137-145) mmol/L Potassium 3.8 (3.5-5.1) mmol/L Chloride 103 (98-107) mmol/L Carbon Dioxide 19 L (22-30) mmol/L Anion Gap 9 mmol/L BUN 12 (7-17) mg/dL Creatinine 0.52 (0.52-1.04) mg/dL Est GFR (CKD-EPI)AfAm >90 (>60 ml/min/1.73 sqM) Est GFR (CKD-EPI)NonAf >90 (>60 ml/min/1.73 sqM) Glucose 82 (74-99) mg/dL Calcium 9.2 (8.4-10.2) mg/dL Troponin I (0.000-0.034) ng/mL Coronavirus (PCR) (Not Detectd) Influenza Type A RNA (Not Detectd) Influenza Type B (PCR) (Not Detectd) Group A Strep Rapid (Negative) 03/07/21 Range/Units 18:46 WBC (4.0-11.0) k/uL RBC (3.80-5.40) m/uL Hgb (11.4-16.0) gm/dL Hct (34.0-46.0) % MCV (80.0-100.0) fL MCH (25.0-35.0) pg MCHC (31.0-37.0) g/dL RDW (11.5-15.5) % Plt Count (150-450) k/uL MPV Neutrophils % % Lymphocytes % % Monocytes % % Eosinophils % % Basophils % % Neutrophils # (1.3-7.7) k/uL Lymphocytes # (1.0-4.8) k/uL Monocytes # (0-1.0) k/uL Eosinophils # (0-0.7) k/uL Basophils # (0-0.2) k/uL D-Dimer (<0.60) mg/L FEU Sodium (137-145) mmol/L Potassium (3.5-5.1) mmol/L Chloride (98-107) mmol/L Carbon Dioxide (22-30) mmol/L Anion Gap mmol/L BUN (7-17) mg/dL Creatinine (0.52-1.04) mg/dL Est GFR (CKD-EPI)AfAm (>60 ml/min/1.73 sqM) Est GFR (CKD-EPI)NonAf (>60 ml/min/1.73 sqM) Glucose (74-99) mg/dL Calcium (8.4-10.2) mg/dL Troponin I <0.012 (0.000-0.034) ng/mL Coronavirus (PCR) (Not Detectd) Influenza Type A RNA (Not Detectd) Influenza Type B (PCR) (Not Detectd) Group A Strep Rapid (Negative) Disposition Clinical Impression: Cough, Pneumonia Disposition: HOME SELF-CARE Condition: Good Instructions (If sedation given, give patient instructions): Fever in Adults (ED) Additional Instructions: Take Motrin and Tylenol for fever. Take antibiotic as directed for pneumonia. Follow-up with your doctor to discuss blood thinners as well as your somewhat low sodium level. Return to the emergency room for any worsening symptoms. Prescriptions: Azithromycin [Zithromax Z-pack (6 tabs)] 250 mg PO DIRECTED #6 tab Is patient prescribed a controlled substance at d/c from ED?: No Referrals: Jackie Chatterjee MD [REFERRING] - 1-2 days Time of Disposition: 19:32
[2021-03-07] MEDS ORDERED: cefTRIAXone IN SWFI 1,000 MG/10 ML SYRINGE IVP STA (18:40)
[2021-03-07] MEDS ORDERED: AZITHROMYCIN 500 MG TAB PO STA (18:40)
[2021-03-07] MEDS ORDERED: predniSONE 50 MG TAB PO STA (18:50)
[2021-03-07 18:57] LABS: Basophils % (A) 1 %; Eosinophils # (A) 0.2 k/uL (0-0.7); Eosinophils % (A) 4 %; HCT 41.7 % (34.0-46.0); HGB 14.9 gm/dL (11.4-16.0); Lymphocytes # (A) 1.5 k/uL (1.0-4.8); Lymphocytes % (A) 27 %; MCH 29.8 pg (25.0-35.0); MCHC 35.6 g/dL (31.0-37.0); MCV 83.6 fL (80.0-100.0); Mean Platelet Volume 7.6; Monocytes # (A) 0.3 k/uL (0-1.0); Monocytes % (A) 6 %; Neutrophils # (A) 3.2 k/uL (1.3-7.7); Neutrophils % (A) 59 %; Platelet Count 234 k/uL (150-450); RBC 4.99 m/uL (3.80-5.40); RDW 13.2 % (11.5-15.5); WBC 5.4 k/uL (4.0-11.0)
[2021-03-07 19:13] LABS: African American GFR (CKD) >90 (>60 ml/min/1.73 sqM); Anion Gap 9 mmol/L; Blood Urea Nitrogen 12 mg/dL (7-17); Calcium 9.2 mg/dL (8.4-10.2); Carbon Dioxide 19 mmol/L (22-30); Chloride 103 mmol/L (98-107); Glucose 82 mg/dL (74-99); Non-African American GFR(CKD) >90 (>60 ml/min/1.73 sqM); Potassium 3.8 mmol/L (3.5-5.1); Sodium 131 mmol/L (137-145)
[2021-03-07 20:07] VITALS: BP 109/71; PULSE 93; RESP 20; TEMP 98.2
== END 2021-03-07 20:05 | disposition home or self-care (01) ==
LOC: EC 15:44
DX: J18.9 Pneumonia, unspecified organism (principal); Z87.891 Personal history of nicotine dependence; Z20.822 Contact with and (suspected) exposure to COVID-19
CPT/HCPCS: 36415; 71046; 80048; 84484; 85025; 85379; 87081; 87430; 87502; 87635; 96374; 99284

== ENCOUNTER 2021-07-05 23:30 | Emergency (ER) | payer OTHER ==
[2021-07-05] MEDS ORDERED: IBUPROFEN 600 MG TAB PO STA (23:58)
[2021-07-05] MEDS ORDERED: ACETAMINOPHEN TAB 500 MG TAB PO STA (23:58)
[2021-07-05] MEDS ORDERED: METOCLOPRAMIDE 5 MG/ML 2 ML VIAL IVP STA (23:58)
[2021-07-05] MEDS ORDERED: diphenhydrAMINE 50 MG/ML 1 ML VIAL IVP STA (23:58)
[2021-07-06 00:01] VITALS: RESP 18
--- NOTE | 2021-07-06 00:22 | ED ---
General Adult HPI - General Chief complaint: Fever Stated complaint: Headache,Fever Time Seen by Provider: 07/05/21 23:34 Source: patient, EMS, RN notes reviewed Mode of arrival: EMS Limitations: no limitations - History of Present Illness Initial comments: This a 21-year-old female presents emergency from chief complaint of headaches. Patient states that has not felt well recently. She states she's been having headaches for last couple weeks over the last day or so she's had severe headache. Patient states that when she coughs, moves it seems to worsen. Patient was found to have a fever by EMS. Patient does admit that she's had nasal congestion, cough, is had some nausea without significant vomiting. Denies any sick contacts. Patient states she does have diffuse bodyaches all over. She has not had COVID-19 prior. Patient is on no medications currently. Denies any focal weakness. - Related Data Previous Rx's Medication Instructions Recorded Azithromycin [Zithromax Z-pack (6 250 mg PO DIRECTED #6 tab 03/07/21 tabs)] Amoxicillin/Potassium Clav 1 tab PO Q12HR #20 tab 07/06/21 [Augmentin 875-125 Tablet] Allergies Allergy/AdvReac Type Severity Reaction Status Date / Time cat dander Allergy Rash/Hives Verified 03/07/21 16:55 cat's claw Allergy Swelling Verified 03/07/21 16:55 Review of Systems ROS Statement: Those systems with pertinent positive or pertinent negative responses have been documented in the HPI. ROS Other: All systems not noted in ROS Statement are negative. Past Medical History Past Medical History: CVA/TIA, Pulmonary Embolus (PE) History of Any Multi-Drug Resistant Organisms: None Reported Past Surgical History: No Surgical Hx Reported Past Psychological History: No Psychological Hx Reported Smoking Status: Former smoker Past Alcohol Use History: Rare Past Drug Use History: None Reported General Exam Limitations: no limitations General appearance: alert, in no apparent distress Head exam: Present: atraumatic, normocephalic, normal inspection Eye exam: Present: normal appearance, PERRL, EOMI. Absent: scleral icterus, conjunctival injection, periorbital swelling ENT exam: Present: normal exam, normal oropharynx, mucous membranes moist Neck exam: Present: normal inspection, full ROM. Absent: tenderness, meningismus, lymphadenopathy Respiratory exam: Present: normal lung sounds bilaterally. Absent: respiratory distress, wheezes, rales, rhonchi, stridor Cardiovascular Exam: Present: normal rhythm, tachycardia, normal heart sounds. Absent: systolic murmur, diastolic murmur, rubs, gallop, clicks GI/Abdominal exam: Present: soft, normal bowel sounds. Absent: distended, tenderness, guarding, rebound, rigid Neurological exam: Present: alert, oriented X3, CN II-XII intact, reflexes normal. Absent: motor sensory deficit Skin exam: Present: warm, dry, intact, normal color. Absent: rash Course Vital Signs 07/05/21 23:54 Temperature 99.1 F Pulse Rate 109 H Respiratory 18 Rate Blood Pressure 112/77 O2 Sat by Pulse 100 Oximetry Medical Decision Making - Medical Decision Making Patient reported fever outpatient upon arrival patient had 99 time. Patient's did have full workup including labs CT x-ray mono COVID-19 urinalysis with no specific findings. Patient was well-hydrated states that she does feel improved she states she still has some body aches. Patient had some abnormal infection in November patient we given antibiotics, blood cultures were drawn patient agrees to plan. Patient has no deficits has no complaints of neck pain or neck stiffness. - Lab Data Result diagrams: 07/06/21 00:08 07/06/21 00:08 Lab Results 07/06/21 07/06/21 07/06/21 Range/Units 00:08 00:08 00:08 WBC 12.3 H (3.8-10.6) k/uL RBC 4.43 (3.80-5.40) m/uL Hgb 12.8 (11.4-16.0) gm/dL Hct 38.0 (34.0-46.0) % MCV 85.7 (80.0-100.0) fL MCH 29.0 (25.0-35.0) pg MCHC 33.8 (31.0-37.0) g/dL RDW 13.1 (11.5-15.5) % Plt Count 261 (150-450) k/uL MPV 7.8 Neutrophils % 81 % Lymphocytes % 13 % Monocytes % 4 % Eosinophils % 2 % Basophils % 0 % Neutrophils # 10.0 H (1.3-7.7) k/uL Lymphocytes # 1.6 (1.0-4.8) k/uL Monocytes # 0.5 (0-1.0) k/uL Eosinophils # 0.2 (0-0.7) k/uL Basophils # 0.0 (0-0.2) k/uL Sodium 132 L (137-145) mmol/L Potassium 3.9 (3.5-5.1) mmol/L Chloride 108 H (98-107) mmol/L Carbon Dioxide 15 L (22-30) mmol/L Anion Gap 9 mmol/L BUN 6 L (7-17) mg/dL Creatinine 0.47 L (0.52-1.04) mg/dL Est GFR (CKD-EPI)AfAm >90 (>60 ml/min/1.73 sqM) Est GFR (CKD-EPI)NonAf >90 (>60 ml/min/1.73 sqM) Glucose 70 L (74-99) mg/dL Plasma Lactic Acid Oleg (0.7-2.0) mmol/L Calcium 8.1 L (8.4-10.2) mg/dL Total Bilirubin 1.0 (0.2-1.3) mg/dL AST 19 (14-36) U/L ALT 11 (4-34) U/L Alkaline Phosphatase 56 (38-126) U/L Total Protein 5.8 L (6.3-8.2) g/dL Albumin 3.2 L (3.5-5.0) g/dL Urine Color Urine Appearance (Clear) Urine pH (5.0-8.0) Ur Specific [place] (1.001-1.035) Urine Protein (Negative) Urine Glucose (UA) (Negative) Urine Ketones (Negative) Urine Blood (Negative) Urine Nitrite (Negative) Urine Bilirubin (Negative) Urine Urobilinogen (<2.0) mg/dL Ur Leukocyte Esterase (Negative) Urine HCG, Qual (Not Detectd) Coronavirus (PCR) (Not Detectd) Heterophile Antibody Negative (Negative) 07/06/21 07/06/21 07/06/21 Range/Units 00:08 00:08 02:09 WBC (3.8-10.6) k/uL RBC (3.80-5.40) m/uL Hgb (11.4-16.0) gm/dL Hct (34.0-46.0) % MCV (80.0-100.0) fL MCH (25.0-35.0) pg MCHC (31.0-37.0) g/dL RDW (11.5-15.5) % Plt Count (150-450) k/uL MPV Neutrophils % % Lymphocytes % % Monocytes % % Eosinophils % % Basophils % % Neutrophils # (1.3-7.7) k/uL Lymphocytes # (1.0-4.8) k/uL Monocytes # (0-1.0) k/uL Eosinophils # (0-0.7) k/uL Basophils # (0-0.2) k/uL Sodium (137-145) mmol/L Potassium (3.5-5.1) mmol/L Chloride (98-107) mmol/L Carbon Dioxide (22-30) mmol/L Anion Gap mmol/L BUN (7-17) mg/dL Creatinine (0.52-1.04) mg/dL Est GFR (CKD-EPI)AfAm (>60 ml/min/1.73 sqM) Est GFR (CKD-EPI)NonAf (>60 ml/min/1.73 sqM) Glucose (74-99) mg/dL Plasma Lactic Acid Oleg 1.4 (0.7-2.0) mmol/L Calcium (8.4-10.2) mg/dL Total Bilirubin (0.2-1.3) mg/dL AST (14-36) U/L ALT (4-34) U/L Alkaline Phosphatase (38-126) U/L Total Protein (6.3-8.2) g/dL Albumin (3.5-5.0) g/dL Urine Color Yellow Urine Appearance Clear (Clear) Urine pH 5.5 (5.0-8.0) Ur Specific [place] 1.013 (1.001-1.035) Urine Protein Negative (Negative) Urine Glucose (UA) Negative (Negative) Urine Ketones Negative (Negative) Urine Blood Negative (Negative) Urine Nitrite Negative (Negative) Urine Bilirubin Negative (Negative) Urine Urobilinogen <2.0 (<2.0) mg/dL Ur Leukocyte Esterase Negative (Negative) Urine HCG, Qual (Not Detectd) Coronavirus (PCR) Not Detected (Not Detectd) Heterophile Antibody (Negative) 07/06/21 Range/Units 02:09 WBC (3.8-10.6) k/uL RBC (3.80-5.40) m/uL Hgb (11.4-16.0) gm/dL Hct (34.0-46.0) % MCV (80.0-100.0) fL MCH (25.0-35.0) pg MCHC (31.0-37.0) g/dL RDW (11.5-15.5) % Plt Count (150-450) k/uL MPV Neutrophils % % Lymphocytes % % Monocytes % % Eosinophils % % Basophils % % Neutrophils # (1.3-7.7) k/uL Lymphocytes # (1.0-4.8) k/uL Monocytes # (0-1.0) k/uL Eosinophils # (0-0.7) k/uL Basophils # (0-0.2) k/uL Sodium (137-145) mmol/L Potassium (3.5-5.1) mmol/L Chloride (98-107) mmol/L Carbon Dioxide (22-30) mmol/L Anion Gap mmol/L BUN (7-17) mg/dL Creatinine (0.52-1.04) mg/dL Est GFR (CKD-EPI)AfAm (>60 ml/min/1.73 sqM) Est GFR (CKD-EPI)NonAf (>60 ml/min/1.73 sqM) Glucose (74-99) mg/dL Plasma Lactic Acid Oleg (0.7-2.0) mmol/L Calcium (8.4-10.2) mg/dL Total Bilirubin (0.2-1.3) mg/dL AST (14-36) U/L ALT (4-34) U/L Alkaline Phosphatase (38-126) U/L Total Protein (6.3-8.2) g/dL Albumin (3.5-5.0) g/dL Urine Color Urine Appearance (Clear) Urine pH (5.0-8.0) Ur Specific [place] (1.001-1.035) Urine Protein (Negative) Urine Glucose (UA) (Negative) Urine Ketones (Negative) Urine Blood (Negative) Urine Nitrite (Negative) Urine Bilirubin (Negative) Urine Urobilinogen (<2.0) mg/dL Ur Leukocyte Esterase (Negative) Urine HCG, Qual Not Detected (Not Detectd) Coronavirus (PCR) (Not Detectd) Heterophile Antibody (Negative) Disposition Clinical Impression: URI (upper respiratory infection) Disposition: HOME SELF-CARE Condition: Stable Instructions (If sedation given, give patient instructions): Upper Respiratory Infection (ED) Additional Instructions: Please return to the Emergency Department if symptoms worsen or any other concerns. Prescriptions: Amoxicillin/Potassium Clav [Augmentin 875-125 Tablet] 1 tab PO Q12HR #20 tab Is patient prescribed a controlled substance at d/c from ED?: No Referrals: None,Stated [Primary Care Provider] - 1-2 days Time of Disposition: 02:46
[2021-07-06 00:42] LABS: Basophils % (A) 0 %; Eosinophils # (A) 0.2 k/uL (0-0.7); Eosinophils % (A) 2 %; HGB 12.8 gm/dL (11.4-16.0); Lymphocytes # (A) 1.6 k/uL (1.0-4.8); Lymphocytes % (A) 13 %; MCHC 33.8 g/dL (31.0-37.0); MCV 85.7 fL (80.0-100.0); Mean Platelet Volume 7.8; Monocytes # (A) 0.5 k/uL (0-1.0); Monocytes % (A) 4 %; Neutrophils % (A) 81 %; Platelet Count 261 k/uL (150-450); RBC 4.43 m/uL (3.80-5.40); RDW 13.1 % (11.5-15.5); WBC 12.3 k/uL (3.8-10.6)
[2021-07-06 01:29] LABS: ALT 11 U/L (4-34); AST 19 U/L (14-36); African American GFR (CKD) >90 (>60 ml/min/1.73 sqM); Albumin 3.2 g/dL (3.5-5.0); Alkaline Phosphatase 56 U/L (38-126); Anion Gap 9 mmol/L; Blood Urea Nitrogen 6 mg/dL (7-17); Calcium 8.1 mg/dL (8.4-10.2); Carbon Dioxide 15 mmol/L (22-30); Chloride 108 mmol/L (98-107); Glucose 70 mg/dL (74-99); Non-African American GFR(CKD) >90 (>60 ml/min/1.73 sqM); Potassium 3.9 mmol/L (3.5-5.1); Sodium 132 mmol/L (137-145); Total Protein 5.8 g/dL (6.3-8.2)
--- NOTE | 2021-07-06 01:55 | CT ---
EXAMINATION TYPE: CT brain wo con DATE OF EXAM: 07/06/2021 COMPARISON: 12/07/2020 HISTORY: Headache CT DLP: 1080.40 mGycm Automated exposure control for dose reduction was used. Ventricles and sulci appear normal. There is no mass effect nor midline shift. There is no sign of in tracranial hemorrhage. Calvarium is intact. There is normal aeration of the mastoid sinuses. IMPRESSION: Negative unenhanced head CT scan. No adverse change.
--- NOTE | 2021-07-06 01:55 | XR ---
EXAMINATION TYPE: XR chest 2V DATE OF EXAM: 07/06/2021 COMPARISON: 03/07/2021 HISTORY: Fever TECHNIQUE: FINDINGS: Heart and mediastinum are normal. Lungs are clear. Diaphragm is normal. Bony thorax appears normal. IMPRESSION: Normal chest. No change.
[2021-07-06 02:31] LABS: Appearance,Urine Clear (Clear); Bilirubin,Urine Negative (Negative); Blood,Urine Negative (Negative); Color,Urine Yellow; Glucose,Urine (UA) Negative (Negative); Ketones,Urine Negative (Negative); Leukocyte Esterase,Urine Negative (Negative); Nitrite,Urine Negative (Negative); PH, Urine 5.5 (5.0-8.0); Protein,Urine Negative (Negative); Specific Gravity,Urine 1.013 (1.001-1.035); Urobilinogen,Urine <2.0 mg/dL (<2.0)
[2021-07-06] MEDS ORDERED: AZITHROMYCIN 250 MG TAB PO STA (02:40)
[2021-07-06] MEDS ORDERED: cefTRIAXone IN SWFI 1,000 MG/10 ML SYRINGE IVP STA (02:40)
[2021-07-06 03:33] VITALS: BP 118/67; PULSE 91; TEMP 98.8
== END 2021-07-06 03:32 | disposition home or self-care (01) ==
LOC: EC 23:30
DX: J06.9 Acute upper respiratory infection, unspecified (principal); Z20.822 Contact with and (suspected) exposure to COVID-19; Z87.891 Personal history of nicotine dependence
CPT/HCPCS: 36415; 80053; 83605; 85025; 86308; 81003; 81025; 87040; 87081; 87430; 87502; 87635; 71046; 70450; 99284; 96374; 96375 ×2; J1200; J2765; J0696

== ENCOUNTER 2022-07-17 17:24 | Emergency (ER) | payer OTHER ==
[2022-07-17 17:31] VITALS: BP 118/79; PULSE 80; RESP 16; TEMP 97
[2022-07-17] MEDS ORDERED: ONDANSETRON 4 MG/2 ML VIAL IVP STA (17:44)
[2022-07-17 18:24] LABS: Basophils % (A) 1 %; Eosinophils # (A) 0.3 k/uL (0-0.7); Eosinophils % (A) 6 %; HCT 42.4 % (34.0-46.0); Lymphocytes # (A) 1.9 k/uL (1.0-4.8); Lymphocytes % (A) 34 %; MCH 29.7 pg (25.0-35.0); MCHC 35.4 g/dL (31.0-37.0); MCV 83.9 fL (80.0-100.0); Mean Platelet Volume 7.8; Monocytes # (A) 0.3 k/uL (0-1.0); Monocytes % (A) 4 %; Neutrophils % (A) 54 %; Platelet Count 280 k/uL (150-450); RBC 5.06 m/uL (3.80-5.40); RDW 12.6 % (11.5-15.5); WBC 5.6 k/uL (3.8-10.6)
[2022-07-17 18:33] LABS: ALT 19 U/L (4-34); AST 26 U/L (14-36); African American GFR (CKD) >90 (>60 ml/min/1.73 sqM); Albumin 4.7 g/dL (3.5-5.0); Alkaline Phosphatase 56 U/L (38-126); Anion Gap 12 mmol/L; Blood Urea Nitrogen 12 mg/dL (7-17); Calcium 9.2 mg/dL (8.4-10.2); Carbon Dioxide 20 mmol/L (22-30); Chloride 107 mmol/L (98-107); Glucose 83 mg/dL (74-99); Non-African American GFR(CKD) >90 (>60 ml/min/1.73 sqM); Potassium 3.9 mmol/L (3.5-5.1); Sodium 139 mmol/L (137-145); Total Bilirubin 1.6 mg/dL (0.2-1.3); Total Protein 7.7 g/dL (6.3-8.2)
[2022-07-17 18:47] LABS: Appearance,Urine Cloudy (Clear); Bilirubin,Urine Negative (Negative); Blood,Urine Negative (Negative); Color,Urine Yellow; Glucose,Urine (UA) Negative (Negative); Ketones,Urine Negative (Negative); Leukocyte Esterase,Urine Trace (Negative); Mucus,Urine Rare /hpf; Nitrite,Urine Negative (Negative); Protein,Urine Negative (Negative); RBC,Urine <1 /hpf (0-5); Specific Gravity,Urine 1.019 (1.001-1.035); Squamous Epithelial Cell,Urine 9 /hpf (0-4); Urobilinogen,Urine <2.0 mg/dL (<2.0); WBC,Urine 3 /hpf (0-5)
--- NOTE | 2022-07-17 19:25 | US ---
EXAMINATION TYPE: US transvaginal DATE OF EXAM: 07/17/2022 COMPARISON: NONE CLINICAL HISTORY: pelvic pain. Left sided pelvic pain. . Patient states her period is late, labwo rk today showed negative pg test. TECHNIQUE: . Transabdominal sonographic images of the pelvis were acquired. Transvaginal sonographi c images were medically necessary to better assess the following anatomy: Uterus and ovaries Date of LMP: 06/07/22 EXAM MEASUREMENTS: Uterus: 7.4 x 4.8 x 3.0 cm Endometrial Stripe: 0.9 cm Right Ovary: 2.3 x 1.7 x 1.6 cm Left Ovary: 2.7 x 2.3 x 1.6 cm 1. Uterus: Anteverted wnl 2. Endometrium: wnl 3. Right Ovary: wnl 4. Left Ovary: wnl Spectral, color and waveform doppler imaging shows good arterial and venous flow within the ovaries ; 5. Bilateral Adnexa: Anechoic cyst seen in the left adnexa measuring 4.3 x 3.8 x 3.1cm. Vessels in b ilateral adnexa appear prominent 6. Posterior cul-de-sac: wnl Anteverted uterus. Endometrial stripe 9 mm which is within normal limits for secretory phase of menst rual cycle. Trilaminar appearance noted. Small nabothian cysts in the cervix are seen. Ovaries symmetric and normal in size with scattered peripheral follicles. Left adnexa has 4.3 cm simp le appearing thin-walled cyst separate from the left ovary presumed benign. IMPRESSION: There is 4.3 cm simple appearing left-sided adnexal suspected paraovarian cyst. Satisfact ory blood flow to both ovaries noted.
--- NOTE | 2022-07-17 19:27 | ED ---
Abdominal Pain HPI - General Chief Complaint: Abdominal Pain Stated Complaint: test Time Seen by Provider: 07/17/22 17:39 Source: patient Mode of arrival: ambulatory Limitations: no limitations - History of Present Illness Initial Comments: Patient is a 22-year-old female presenting requesting a test. Patient states that her LMP was around 06/07/22. She admits to pelvic cramping. She admits to nausea in the a.m. with no vomiting. No dysuria or hematuria. No vaginal bleeding or discharge. No flank pain. No fever or chills. No chest pain or difficulty breathing. - Related Data Previous Rx's Medication Instructions Recorded Azithromycin [Zithromax Z-pack (6 250 mg PO DIRECTED #6 tab 03/07/21 tabs)] Amoxicillin/Potassium Clav 1 tab PO Q12HR #20 tab 07/06/21 [Augmentin 875-125 Tablet] Allergies Allergy/AdvReac Type Severity Reaction Status Date / Time cat dander Allergy Rash/Hives Verified 03/07/21 16:55 cat's claw Allergy Swelling Verified 03/07/21 16:55 Review of Systems ROS Statement: Those systems with pertinent positive or pertinent negative responses have been documented in the HPI. ROS Other: All systems not noted in ROS Statement are negative. Past Medical History Past Medical History: CVA/TIA, Pulmonary Embolus (PE) History of Any Multi-Drug Resistant Organisms: None Reported Past Surgical History: No Surgical Hx Reported Past Psychological History: No Psychological Hx Reported Smoking Status: Former smoker Past Alcohol Use History: Rare Past Drug Use History: None Reported General Exam Limitations: no limitations General appearance: alert, in no apparent distress Head exam: Present: atraumatic, normocephalic, normal inspection Eye exam: Present: normal appearance Neck exam: Present: normal inspection Respiratory exam: Present: normal lung sounds bilaterally. Absent: respiratory distress, wheezes, rales, rhonchi, stridor Cardiovascular Exam: Present: regular rate, normal rhythm, normal heart sounds. Absent: systolic murmur, diastolic murmur, rubs, gallop, clicks GI/Abdominal exam: Present: soft, tenderness (pelvic), normal bowel sounds. Absent: distended, guarding, rebound, rigid Neurological exam: Present: alert, oriented X3, CN II-XII intact Psychiatric exam: Present: normal affect, normal mood Skin exam: Present: warm, dry, intact, normal color. Absent: rash Course Vital Signs 07/17/22 17:29 Temperature 97 F L Pulse Rate 80 Respiratory 16 Rate Blood Pressure 118/79 O2 Sat by Pulse 100 Oximetry Medical Decision Making - Medical Decision Making Patient is a 22-year-old female presenting requesting a test. Patient states she has had some lower abdominal cramping and nausea, her LMP was 11/10. On physical examination there is some pelvic tenderness to palpation. Lab work shows no leukocytosis or anemia. CMP requires no action. Urine shows signs of contamination with 9 squamous epithelial cells and 3 WBCs, sent for culture. HCG is negative. Ultrasound shows a 4.3 cm simple appearing left sided adnexal suspected paraovarian cyst satisfactory blood flow to both ovaries is noted. Patient is educated on these findings. Patient declined pelvic exam at this time. Testing for gonorrhea and chlamydia via a urine sent out. Patient is instructed to follow-up with [facility]. Follow-up with PCP. Report back to ER with any new or worsening symptoms. Discussed return parameters and answered all questions. Patient conveyed verbal understanding and agreed to the plan. I discussed this case in detail with my attending Dr. Watkins - Lab Data Result diagrams: 07/17/22 18:20 07/17/22 18:20 Lab Results 07/17/22 07/17/22 07/17/22 Range/Units 18:20 18:20 18:20 WBC 5.6 (3.8-10.6) k/uL RBC 5.06 (3.80-5.40) m/uL Hgb 15.0 (11.4-16.0) gm/dL Hct 42.4 (34.0-46.0) % MCV 83.9 (80.0-100.0) fL MCH 29.7 (25.0-35.0) pg MCHC 35.4 (31.0-37.0) g/dL RDW 12.6 (11.5-15.5) % Plt Count 280 (150-450) k/uL MPV 7.8 Neutrophils % 54 % Lymphocytes % 34 % Monocytes % 4 % Eosinophils % 6 % Basophils % 1 % Neutrophils # 3.0 (1.3-7.7) k/uL Lymphocytes # 1.9 (1.0-4.8) k/uL Monocytes # 0.3 (0-1.0) k/uL Eosinophils # 0.3 (0-0.7) k/uL Basophils # 0.0 (0-0.2) k/uL Sodium (137-145) mmol/L Potassium (3.5-5.1) mmol/L Chloride (98-107) mmol/L Carbon Dioxide (22-30) mmol/L Anion Gap mmol/L BUN (7-17) mg/dL Creatinine (0.52-1.04) mg/dL Est GFR (CKD-EPI)AfAm (>60 ml/min/1.73 sqM) Est GFR (CKD-EPI)NonAf (>60 ml/min/1.73 sqM) Glucose (74-99) mg/dL Calcium (8.4-10.2) mg/dL Total Bilirubin (0.2-1.3) mg/dL AST (14-36) U/L ALT (4-34) U/L Alkaline Phosphatase (38-126) U/L Total Protein (6.3-8.2) g/dL Albumin (3.5-5.0) g/dL Urine Color Yellow Urine Appearance Cloudy H (Clear) Urine pH 6.0 (5.0-8.0) Ur Specific [place] 1.019 (1.001-1.035) Urine Protein Negative (Negative) Urine Glucose (UA) Negative (Negative) Urine Ketones Negative (Negative) Urine Blood Negative (Negative) Urine Nitrite Negative (Negative) Urine Bilirubin Negative (Negative) Urine Urobilinogen <2.0 (<2.0) mg/dL Ur Leukocyte Esterase Trace H (Negative) Urine RBC <1 (0-5) /hpf Urine WBC 3 (0-5) /hpf Ur Squamous Epith Cells 9 H (0-4) /hpf Urine Mucus Rare H (None) /hpf Urine HCG, Qual Not Detected (Not Detectd) 07/17/22 Range/Units 18:20 WBC (3.8-10.6) k/uL RBC (3.80-5.40) m/uL Hgb (11.4-16.0) gm/dL Hct (34.0-46.0) % MCV (80.0-100.0) fL MCH (25.0-35.0) pg MCHC (31.0-37.0) g/dL RDW (11.5-15.5) % Plt Count (150-450) k/uL MPV Neutrophils % % Lymphocytes % % Monocytes % % Eosinophils % % Basophils % % Neutrophils # (1.3-7.7) k/uL Lymphocytes # (1.0-4.8) k/uL Monocytes # (0-1.0) k/uL Eosinophils # (0-0.7) k/uL Basophils # (0-0.2) k/uL Sodium 139 (137-145) mmol/L Potassium 3.9 (3.5-5.1) mmol/L Chloride 107 (98-107) mmol/L Carbon Dioxide 20 L (22-30) mmol/L Anion Gap 12 mmol/L BUN 12 (7-17) mg/dL Creatinine 0.51 L (0.52-1.04) mg/dL Est GFR (CKD-EPI)AfAm >90 (>60 ml/min/1.73 sqM) Est GFR (CKD-EPI)NonAf >90 (>60 ml/min/1.73 sqM) Glucose 83 (74-99) mg/dL Calcium 9.2 (8.4-10.2) mg/dL Total Bilirubin 1.6 H (0.2-1.3) mg/dL AST 26 (14-36) U/L ALT 19 (4-34) U/L Alkaline Phosphatase 56 (38-126) U/L Total Protein 7.7 (6.3-8.2) g/dL Albumin 4.7 (3.5-5.0) g/dL Urine Color Urine Appearance (Clear) Urine pH (5.0-8.0) Ur Specific [place] (1.001-1.035) Urine Protein (Negative) Urine Glucose (UA) (Negative) Urine Ketones (Negative) Urine Blood (Negative) Urine Nitrite (Negative) Urine Bilirubin (Negative) Urine Urobilinogen (<2.0) mg/dL Ur Leukocyte Esterase (Negative) Urine RBC (0-5) /hpf Urine WBC (0-5) /hpf Ur Squamous Epith Cells (0-4) /hpf Urine Mucus (None) /hpf Urine HCG, Qual (Not Detectd) Disposition Clinical Impression: Ovarian cyst Disposition: HOME SELF-CARE Condition: Good Instructions (If sedation given, give patient instructions): Ovarian Cyst (ED) Additional Instructions: Follow-up with PCP and [facility]. Report back to ER with any new or worsening symptoms. Is patient prescribed a controlled substance at d/c from ED?: No Referrals: None,Stated [Primary Care Provider] - 1-2 days Regla Melendez MD [STAFF PHYSICIAN] - 1-2 days Time of Disposition: 20:04
== END 2022-07-17 20:19 | disposition home or self-care (01) ==
LOC: EC 17:24
DX: N83.202 Unspecified ovarian cyst, left side (principal); Z86.73 Personal history of transient ischemic attack (TIA), and cerebral infarction without residual deficits; Z87.891 Personal history of nicotine dependence; Z88.8 Allergy status to other drugs, medicaments and biological substances
CPT/HCPCS: 36415; 80053; 85025; 81001; 81025; 87491; 87591; 93975; 76856; 76830; 99284; 96374; J2405

== ENCOUNTER 2022-11-20 11:36 | Emergency (ER) | payer OTHER ==
[2022-11-20] MEDS ORDERED: SODIUM CHLORIDE 0.9% 1,000 ML IV ONE (12:14)
[2022-11-20 12:43] LABS: ALT 22 U/L (4-34); AST 31 U/L (14-36); African American GFR (CKD) >90 (>60 ml/min/1.73 sqM); Albumin 4.2 g/dL (3.5-5.0); Alkaline Phosphatase 65 U/L (38-126); Anion Gap 9 mmol/L; Blood Urea Nitrogen 11 mg/dL (7-17); Calcium 9.1 mg/dL (8.4-10.2); Carbon Dioxide 22 mmol/L (22-30); Chloride 106 mmol/L (98-107); Glucose 80 mg/dL (74-99); Lipase 47 U/L (23-300); Non-African American GFR(CKD) >90 (>60 ml/min/1.73 sqM); Potassium 4.1 mmol/L (3.5-5.1); Sodium 137 mmol/L (137-145); Total Bilirubin 1.6 mg/dL (0.2-1.3); Total Protein 7.2 g/dL (6.3-8.2)
[2022-11-20 12:49] LABS: Appearance,Urine Cloudy (Clear); Bacteria,Urine Rare /hpf; Bilirubin,Urine 1+ (Negative); Blood,Urine Moderate (Negative); Color,Urine Yellow; Glucose,Urine (UA) Negative (Negative); Hyaline Casts,Urine 1 /lpf (0-2); Ketones,Urine Negative (Negative); Leukocyte Esterase,Urine Negative (Negative); Mucus,Urine Few /hpf; Nitrite,Urine Negative (Negative); PH, Urine 5.5 (5.0-8.0); Protein,Urine Trace (Negative); RBC,Urine <1 /hpf (0-5); Specific Gravity,Urine 1.025 (1.001-1.035); Squamous Epithelial Cell,Urine 11 /hpf (0-4); WBC,Urine 4 /hpf (0-5)
[2022-11-20 12:50] LABS: Basophils % (A) 0 %; Eosinophils # (A) 0.4 k/uL (0-0.7); Eosinophils % (A) 5 %; HCT 43.2 % (34.0-46.0); HGB 14.6 gm/dL (11.4-16.0); Lymphocytes # (A) 1.1 k/uL (1.0-4.8); Lymphocytes % (A) 14 %; MCH 28.6 pg (25.0-35.0); MCHC 33.8 g/dL (31.0-37.0); MCV 84.6 fL (80.0-100.0); Mean Platelet Volume 7.8; Monocytes # (A) 0.3 k/uL (0-1.0); Monocytes % (A) 3 %; Neutrophils # (A) 6.4 k/uL (1.3-7.7); Neutrophils % (A) 78 %; Platelet Count 288 k/uL (150-450); RBC 5.11 m/uL (3.80-5.40); RDW 12.8 % (11.5-15.5); WBC 8.2 k/uL (3.8-10.6)
[2022-11-20] MEDS ORDERED: KETOROLAC 15 MG/ML 1 ML VIAL IVP STA ×2 (13:10→16:38)
[2022-11-20 14:04] LABS: Magnesium 1.7 mg/dL (1.6-2.3)
--- NOTE | 2022-11-20 15:32 | CT ---
EXAMINATION TYPE: CT abdomen pelvis wo con DATE OF EXAM: 11/20/2022 COMPARISON: 03/02/2016 HISTORY: 22-year-old female abdominal/flank pain CT DLP: 269.1 mGycm. Automated exposure control for dose reduction was used. TECHNIQUE: Contiguous axial scanning of the abdomen and pelvis without IV contrast. Coronal and sagit torsten reconstructions performed. FINDINGS: Heart normal size without pericardial effusion. Lung bases clear without pleural effusion. Possible tiny hiatal hernia. Noncontrast appearance of the liver, gallbladder, spleen, adrenal glands, kidneys, and pancreas withi n normal limits. No dilated small bowel, free fluid, or free air. No mesenteric or retroperitoneal lymphadenopathy. While the appendix is not clearly seen. No secondary findings of acute appendicitis in the right lowe r quadrant. There is mild overall stool burden. Chronic inflammatory change. Mild gallbladder wall thickening. Uterus anteverted. Right ovary obscured by clustered bowel loops. T here is a cyst within the left cul-de-sac measuring 3.8 cm, likely of ovarian etiology. A few scattered pelvic phleboliths. No abnormal fluid collection the pelvis or pelvic lymphadenopathy seen. Bones: No osseous destructive process. IMPRESSION: 1. A 3.8 cm cyst located within the left cul-de-sac, likely a dominant follicle or functional cyst o f the left ovary. 2. Limited noncontrast exam. No acute inflammatory processes identified to explain the patient's sym ptoms. No nephrolithiasis or hydronephrosis.
--- NOTE | 2022-11-20 16:37 | ED ---
General Adult HPI - General Chief complaint: Urogenital Stated complaint: Abd Pain Time Seen by Provider: 11/20/22 11:50 Source: patient, EMS, RN notes reviewed Mode of arrival: EMS - History of Present Illness Initial comments: 22-year-old female presents emergency department chief complaint of abdominal pain. Patient states that it started around 0800. She describes it as stabbing pain that comes and goes. She states that she has had nausea and vomiting.. sHe states the pain is in her left lower abdomen and radiates to her back. States that she has been experiencing chills. She denies alleviating and aggravating factors. - Related Data Home Medications Medication Instructions Recorded Confirmed diphenhydrAMINE HCL [Benadryl] 25 mg PO DAILY PRN 11/20/22 11/20/22 Allergies Allergy/AdvReac Type Severity Reaction Status Date / Time cat dander Allergy Rash/Hives Verified 11/20/22 12:38 cat's claw Allergy Swelling Verified 11/20/22 12:38 dust Allergy Wheezing Uncoded 11/20/22 12:38 Review of Systems ROS Statement: Those systems with pertinent positive or pertinent negative responses have been documented in the HPI. ROS Other: All systems not noted in ROS Statement are negative. Past Medical History Past Medical History: CVA/TIA, Pulmonary Embolus (PE) History of Any Multi-Drug Resistant Organisms: None Reported Past Surgical History: No Surgical Hx Reported Past Psychological History: No Psychological Hx Reported Smoking Status: Former smoker Past Alcohol Use History: Rare Past Drug Use History: None Reported General Exam Limitations: no limitations General appearance: alert, in no apparent distress Head exam: Present: atraumatic, normocephalic, normal inspection Eye exam: Present: normal appearance, PERRL, EOMI. Absent: scleral icterus, conjunctival injection, periorbital swelling ENT exam: Present: normal exam, mucous membranes moist Respiratory exam: Present: normal lung sounds bilaterally. Absent: respiratory distress, wheezes, rales, rhonchi, stridor Cardiovascular Exam: Present: regular rate, normal rhythm, normal heart sounds. Absent: systolic murmur, diastolic murmur, rubs, gallop, clicks GI/Abdominal exam: Present: tenderness (tenderness to epigastric and LLQ ), normal bowel sounds. Absent: distended, guarding, rebound, rigid Neurological exam: Present: alert, oriented X3, CN II-XII intact Psychiatric exam: Present: anxious Skin exam: Present: warm, dry, intact, normal color. Absent: rash Course Vital Signs 11/20/22 11/20/22 11/20/22 11:38 13:23 15:25 Temperature 97.7 F Pulse Rate 100 103 H 94 Respiratory 16 24 16 Rate Blood Pressure 112/71 110/81 103/69 O2 Sat by Pulse 97 100 100 Oximetry 11/20/22 16:44 Temperature 98.9 F Pulse Rate 94 Respiratory 18 Rate Blood Pressure 119/74 O2 Sat by Pulse 99 Oximetry Medical Decision Making - Medical Decision Making Was pt. sent in by a medical professional or institution (, PA, MEDIA THEORIST AND AUTHOR OF, urgent care, hospital, or skilled nursing...) When possible be specific @ -No Did you speak to anyone other than the patient for history (EMS, parent, family, police, friend...)? What history was obtained from this source @ -No Did you review nursing and triage notes (agree or disagree)? Why? @ -I reviewed and agree with nursing and triage notes Were old charts reviewed (outside hosp., previous admission, EMS record, old EKG, old radiological studies, urgent care reports/EKG's, skilled nursing records)? Report findings @ -No old charts were reviewed Differential Diagnosis (chest pain, altered mental status, abdominal pain women, abdominal pain men, vaginal bleeding, weakness, fever, dyspnea, syncope, headache, dizziness, GI bleed, back pain, seizure, CVA, palpatations, mental health, musculoskeletal)? @ -Differential Abdominal Pain Women: Appendicitis, Cholecystitis, diverticulosis, ischemic bowel, pancreatitis, hepatitis, UTI, gastroenteritis, AAA, incarcerated hernia, bowel obstruction, constipation, inflammatory bowel, hepatitis, peptic ulcer disease, splenic infarction, perforated viscus, vulvitis, ovarian torsion, PID, kidney stone, placenta abruption, this is not meant to be an all-inclusive list EKG interpreted by me (3pts min.). @ -EKG at 1149 shows sinus rhythm rate 94, HI 133, QRS 85, QTQTc [id number] X-rays interpreted by me (1pt min.). @ -None done CT interpreted by me (1pt min.). @ -CT abdomen and pelvis without contrast showed a 3.8 cm cyst in the left cul-de-sac, likely dilated follicle or functional cyst in left ovary, no acute inflammatory processes identified to explain the patient's symptoms, no nephrolithiasis or hydronephrosis. U/S interpreted by me (1pt. min.). @ -None done What testing was considered but not performed or refused? (CT, X-rays, U/S, labs)? Why? @ -Pelvic ultrasound was ordered and discussed with the patient the necessity for the test. The patient refused stating "last time I had that it hurt" discussed the risk of torsion] What meds were considered but not given or refused? Why? @ -None Did you discuss the management of the patient with other professionals (professionals i.e. , PA, MEDIA THEORIST AND AUTHOR OF, lab, RT, psych nurse, case management social worker, filler mixer, teacher, certified juvenile probation officer, case management social worker)? Give summary @ -No Was smoking cessation discussed for >3mins.? @ -No Was critical care preformed (if so, how long)? @ -No Were there social determinants of health that impacted care today? How? (Homelessness, low income, unemployed, alcoholism, drug addiction, transportation, low edu. Level, literacy, decrease access to med. care, correction, rehab)? @ -No Was there de-escalation of care discussed even if they declined (Discuss DNR or withdrawal of care, Hospice)? DNR status @ -No What co-morbidities impacted this encounter? (DM, HTN, Smoking, COPD, CAD, Cancer, CVA, ARF, Chemo, Hep., AIDS, mental health diagnosis, sleep apnea, morbid obesity)? @ -None Was patient admitted / discharged? Hospital course, mention meds given and route, prescriptions, significant lab abnormalities, going to OR and other pertinent info. @ -Discharged. Patient presented to the emergency department with abdominal pain. CBC and CMP within normal limits. CK within normal limits. D-dimer within normal limits. Toradol was administered. UA showed Moderate blood, trace protein, < 1 rbc. Computed tomography scan abdomen without contrast was obtained which showed a 3.8 cm cyst located in left cul-de-sac likely dominant cough or functional cyst in left ovary. No acute inflammatory process daniela ntified to explain patient's symptoms, no nephrolithiasis or hydronephrosis. Another 15mg of toradol was administered Pelvic ultrasound was then ordered because the patient was still in 05/07 pain. Patient refused pelvic ultrasound stating "last time I had that it hurt" discussed the importance of the test but patient refused. Patient discharged in stable condition. Case discussed with Dr. Morales. Undiagnosed new problem with uncertain prognosis? @ -No Drug Therapy requiring intensive monitoring for toxicity (Heparin, Nitro, Insulin, Cardizem)? @ -No Were any procedures done? @ -No Diagnosis/symptom? @ -Abdominal pain Acute, or Chronic, or Acute on Chronic? @ -acute Uncomplicated (without systemic symptoms) or Complicated (systemic symptoms)? @ -uncomplicated Side effects of treatment? @ -No Exacerbation, Progression, or Severe Exacerbation? @ -No Poses a threat to life or bodily function? How? (Chest pain, [place], [place], pneumonia, PE, COPD, DKA, ARF, appy, cholecystitis, CVA, Diverticulitis, Homicidal, Suicidal, threat to staff... and all critical care pts) @ -No - Lab Data Result diagrams: 11/20/22 12:14 11/20/22 12:14 Lab Results 11/20/22 11/20/22 11/20/22 Range/Units 12:14 12:14 12:14 WBC 8.2 (3.8-10.6) k/uL RBC 5.11 (3.80-5.40) m/uL Hgb 14.6 (11.4-16.0) gm/dL Hct 43.2 (34.0-46.0) % MCV 84.6 (80.0-100.0) fL MCH 28.6 (25.0-35.0) pg MCHC 33.8 (31.0-37.0) g/dL RDW 12.8 (11.5-15.5) % Plt Count 288 (150-450) k/uL MPV 7.8 Neutrophils % 78 % Lymphocytes % 14 % Monocytes % 3 % Eosinophils % 5 % Basophils % 0 % Neutrophils # 6.4 (1.3-7.7) k/uL Lymphocytes # 1.1 (1.0-4.8) k/uL Monocytes # 0.3 (0-1.0) k/uL Eosinophils # 0.4 (0-0.7) k/uL Basophils # 0.0 (0-0.2) k/uL D-Dimer 0.47 (<0.60) mg/L FEU Sodium (137-145) mmol/L Potassium (3.5-5.1) mmol/L Chloride (98-107) mmol/L Carbon Dioxide (22-30) mmol/L Anion Gap mmol/L BUN (7-17) mg/dL Creatinine (0.52-1.04) mg/dL Est GFR (CKD-EPI)AfAm (>60 ml/min/1.73 sqM) Est GFR (CKD-EPI)NonAf (>60 ml/min/1.73 sqM) Glucose (74-99) mg/dL Plasma Lactic Acid Oleg (0.7-2.0) mmol/L Calcium (8.4-10.2) mg/dL Magnesium (1.6-2.3) mg/dL Total Bilirubin (0.2-1.3) mg/dL AST (14-36) U/L ALT (4-34) U/L Alkaline Phosphatase (38-126) U/L Creatine Kinase (30-135) U/L CK-MB (CK-2) (0.0-2.4) ng/mL Total Protein (6.3-8.2) g/dL Albumin (3.5-5.0) g/dL Lipase (23-300) U/L Urine Color Yellow Urine Appearance Cloudy H (Clear) Urine pH 5.5 (5.0-8.0) Ur Specific [place] 1.025 (1.001-1.035) Urine Protein Trace H (Negative) Urine Glucose (UA) Negative (Negative) Urine Ketones Negative (Negative) Urine Blood Moderate H (Negative) Urine Nitrite Negative (Negative) Urine Bilirubin 1+ H (Negative) Urine Urobilinogen 2.0 (<2.0) mg/dL Ur Leukocyte Esterase Negative (Negative) Urine RBC <1 (0-5) /hpf Urine WBC 4 (0-5) /hpf Ur Squamous Epith Cells 11 H (0-4) /hpf Urine Bacteria Rare H (None) /hpf Hyaline Casts 1 (0-2) /lpf Urine Mucus Few H (None) /hpf Urine HCG, Qual (Not Detectd) 11/20/22 11/20/22 11/20/22 Range/Units 12:14 12:14 12:14 WBC (3.8-10.6) k/uL RBC (3.80-5.40) m/uL Hgb (11.4-16.0) gm/dL Hct (34.0-46.0) % MCV (80.0-100.0) fL MCH (25.0-35.0) pg MCHC (31.0-37.0) g/dL RDW (11.5-15.5) % Plt Count (150-450) k/uL MPV Neutrophils % % Lymphocytes % % Monocytes % % Eosinophils % % Basophils % % Neutrophils # (1.3-7.7) k/uL Lymphocytes # (1.0-4.8) k/uL Monocytes # (0-1.0) k/uL Eosinophils # (0-0.7) k/uL Basophils # (0-0.2) k/uL D-Dimer (<0.60) mg/L FEU Sodium 137 (137-145) mmol/L Potassium 4.1 (3.5-5.1) mmol/L Chloride 106 (98-107) mmol/L Carbon Dioxide 22 (22-30) mmol/L Anion Gap 9 mmol/L BUN 11 (7-17) mg/dL Creatinine 0.53 (0.52-1.04) mg/dL Est GFR (CKD-EPI)AfAm >90 (>60 ml/min/1.73 sqM) Est GFR (CKD-EPI)NonAf >90 (>60 ml/min/1.73 sqM) Glucose 80 (74-99) mg/dL Plasma Lactic Acid Oleg 1.1 (0.7-2.0) mmol/L Calcium 9.1 (8.4-10.2) mg/dL Magnesium (1.6-2.3) mg/dL Total Bilirubin 1.6 H (0.2-1.3) mg/dL AST 31 (14-36) U/L ALT 22 (4-34) U/L Alkaline Phosphatase 65 (38-126) U/L Creatine Kinase (30-135) U/L CK-MB (CK-2) (0.0-2.4) ng/mL Total Protein 7.2 (6.3-8.2) g/dL Albumin 4.2 (3.5-5.0) g/dL Lipase 47 (23-300) U/L Urine Color Urine Appearance (Clear) Urine pH (5.0-8.0) Ur Specific [place] (1.001-1.035) Urine Protein (Negative) Urine Glucose (UA) (Negative) Urine Ketones (Negative) Urine Blood (Negative) Urine Nitrite (Negative) Urine Bilirubin (Negative) Urine Urobilinogen (<2.0) mg/dL Ur Leukocyte Esterase (Negative) Urine RBC (0-5) /hpf Urine WBC (0-5) /hpf Ur Squamous Epith Cells (0-4) /hpf Urine Bacteria (None) /hpf Hyaline Casts (0-2) /lpf Urine Mucus (None) /hpf Urine HCG, Qual Not Detected (Not Detectd) 11/20/22 11/20/22 Range/Units 12:14 12:26 WBC (3.8-10.6) k/uL RBC (3.80-5.40) m/uL Hgb (11.4-16.0) gm/dL Hct (34.0-46.0) % MCV (80.0-100.0) fL MCH (25.0-35.0) pg MCHC (31.0-37.0) g/dL RDW (11.5-15.5) % Plt Count (150-450) k/uL MPV Neutrophils % % Lymphocytes % % Monocytes % % Eosinophils % % Basophils % % Neutrophils # (1.3-7.7) k/uL Lymphocytes # (1.0-4.8) k/uL Monocytes # (0-1.0) k/uL Eosinophils # (0-0.7) k/uL Basophils # (0-0.2) k/uL D-Dimer (<0.60) mg/L FEU Sodium (137-145) mmol/L Potassium (3.5-5.1) mmol/L Chloride (98-107) mmol/L Carbon Dioxide (22-30) mmol/L Anion Gap mmol/L BUN (7-17) mg/dL Creatinine (0.52-1.04) mg/dL Est GFR (CKD-EPI)AfAm (>60 ml/min/1.73 sqM) Est GFR (CKD-EPI)NonAf (>60 ml/min/1.73 sqM) Glucose (74-99) mg/dL Plasma Lactic Acid Oleg (0.7-2.0) mmol/L Calcium (8.4-10.2) mg/dL Magnesium 1.7 (1.6-2.3) mg/dL Total Bilirubin (0.2-1.3) mg/dL AST (14-36) U/L ALT (4-34) U/L Alkaline Phosphatase (38-126) U/L Creatine Kinase 73 (30-135) U/L CK-MB (CK-2) <0.2 (0.0-2.4) ng/mL Total Protein (6.3-8.2) g/dL Albumin (3.5-5.0) g/dL Lipase (23-300) U/L Urine Color Urine Appearance (Clear) Urine pH (5.0-8.0) Ur Specific [place] (1.001-1.035) Urine Protein (Negative) Urine Glucose (UA) (Negative) Urine Ketones (Negative) Urine Blood (Negative) Urine Nitrite (Negative) Urine Bilirubin (Negative) Urine Urobilinogen (<2.0) mg/dL Ur Leukocyte Esterase (Negative) Urine RBC (0-5) /hpf Urine WBC (0-5) /hpf Ur Squamous Epith Cells (0-4) /hpf Urine Bacteria (None) /hpf Hyaline Casts (0-2) /lpf Urine Mucus (None) /hpf Urine HCG, Qual (Not Detectd) Disposition Clinical Impression: Abdominal discomfort Disposition: HOME SELF-CARE Condition: Stable Instructions (If sedation given, give patient instructions): Acute Abdominal Pain (ED) Additional Instructions: Please return to the Emergency Department if new or worsening symptoms develop or any other concerns. Is patient prescribed a controlled substance at d/c from ED?: No Referrals: None,Stated [Primary Care Provider] - 1-2 days Time of Disposition: 17:43
[2022-11-20 16:46] VITALS: TEMP 98.9
[2022-11-20 17:58] VITALS: BP 106/55; PULSE 90; RESP 16
== END 2022-11-20 17:57 | disposition home or self-care (01) ==
LOC: EC 11:36
DX: R10.13 Epigastric pain (principal); Z86.73 Personal history of transient ischemic attack (TIA), and cerebral infarction without residual deficits; Z87.891 Personal history of nicotine dependence; Z91.048 Other nonmedicinal substance allergy status
CPT/HCPCS: 36415; 93005; 85379; 80053; 82550; 82553; 83605; 83690; 83735; 85025; 81001; 81025; 74176; 99285; 96374; 96376; 96361; J1885

== ENCOUNTER 2022-12-26 16:12 | Emergency (ER) | payer OTHER ==
[2022-12-26] MEDS ORDERED: KETOROLAC 15 MG/ML 1 ML VIAL IM STA (16:51)
[2022-12-26] MEDS ORDERED: IPRATROPIUM-ALBUTEROL 3 ML NEB INHALATION STA (16:51)
--- NOTE | 2022-12-26 17:15 | ED ---
URI HPI - General Chief Complaint: Upper Respiratory Infection Stated Complaint: headache,cough Time Seen by Provider: 12/26/22 16:19 Source: patient, RN notes reviewed Mode of arrival: ambulatory Limitations: no limitations - History of Present Illness Initial Comments: This is a 22-year-old female who presents to the emergency department for a headache, coughing, congestion, and body aches. States that the symptoms started yesterday. Reports some difficulty breathing as well. Denies any chest pain. She has not measured any fevers, but feels like she has been both hot and cold. She has been around her young cousin who has also been ill. Denies any chest pain, palpitations, abdominal pain, nausea, vomiting, diarrhea, back pain, or headaches. MD Complaint: cough, nasal congestion Onset/Timin -: days(s) - Related Data Home Medications Medication Instructions Recorded Confirmed diphenhydrAMINE HCL [Benadryl] 25 mg PO DAILY PRN 11/20/22 11/20/22 Previous Rx's Medication Instructions Recorded Albuterol Inhaler [Ventolin Hfa 1 - 2 puff INHALATION Q6H PRN #1 12/26/22 Inhaler] each Azithromycin [Zithromax] 250 mg PO DAILY 4 Days #4 tab 12/26/22 Promethazine/Dextromethorphan 5 ml PO Q4-6H PRN #473 ml 12/26/22 [Promethazine-Dm Syrup] Allergies Allergy/AdvReac Type Severity Reaction Status Date / Time cat dander Allergy Rash/Hives Verified 12/26/22 16:16 cat's claw Allergy Swelling Verified 12/26/22 16:16 dust Allergy Wheezing Uncoded 12/26/22 16:16 Review of Systems ROS Statement: Those systems with pertinent positive or pertinent negative responses have been documented in the HPI. ROS Other: All systems not noted in ROS Statement are negative. Past Medical History Past Medical History: CVA/TIA, Pulmonary Embolus (PE) History of Any Multi-Drug Resistant Organisms: None Reported Past Surgical History: No Surgical Hx Reported Past Psychological History: No Psychological Hx Reported Smoking Status: Former smoker Past Alcohol Use History: Rare Past Drug Use History: None Reported General Exam Limitations: no limitations General appearance: alert, in no apparent distress Head exam: Present: atraumatic, normocephalic, normal inspection Eye exam: Present: normal appearance, PERRL, EOMI. Absent: scleral icterus, conjunctival injection, periorbital swelling Respiratory exam: Present: normal lung sounds bilaterally. Absent: respiratory distress, wheezes, rales, rhonchi, stridor Cardiovascular Exam: Present: regular rate, normal rhythm, normal heart sounds. Absent: systolic murmur, diastolic murmur, rubs, gallop, clicks Neurological exam: Present: alert, oriented X3, CN II-XII intact Psychiatric exam: Present: normal affect, normal mood Skin exam: Present: warm, dry, intact, normal color. Absent: rash Course Vital Signs 12/26/22 12/26/22 12/26/22 16:14 18:03 18:11 Temperature 97.9 F Pulse Rate 109 H 84 86 Respiratory 20 Rate Blood Pressure 104/70 O2 Sat by Pulse 95 Oximetry 12/26/22 18:46 Temperature 99.9 F H Pulse Rate 104 H Respiratory 16 Rate Blood Pressure 99/70 O2 Sat by Pulse 96 Oximetry Medical Decision Making - Medical Decision Making This is a 22-year-old female who presents to the emergency department for coughing and a headache. Was pt. sent in by a medical professional or institution? @ -No Did you speak to anyone other than the patient for history? @ -No Did you review nursing and triage notes? @ -Yes, and I agree, it is accurate with regards to the patient's symptoms. Were old charts reviewed? @ -No Differential Diagnosis? @ -Differential Cough: Influenza, Covid, RSV, croup, allergic rhinitis, GERD, pneumonia, bronchitis, COPD, viral pharyngitis, streptococcal pharyngitis, this is not meant to be an all-inclusive list. EKG interpreted by me (3pts min.)? @ -Not obtained X-rays interpreted by me (1pt min.)? @ -Chest x-ray obtained. My interpretation identifies a right middle lobe opacity. CT interpreted by me (1pt min.)? @ -Not obtained U/S interpreted by me (1pt. min.)? @ -Not obtained What testing was considered but not performed? (CT, X-rays, U/S, labs)? Why? @ -None What meds were considered but not given? Why? @ -None Did you discuss the management of the patient with other professionals? @ -No Did you reconcile home meds? @ -No Was smoking cessation discussed for >3mins.? @ -No Was critical care preformed (if so, how long)? @ -No Were there social determinants of health that impacted care today? How? (Homelessness, low income, unemployed, alcoholism, drug addiction, transportation, low edu. Level, literacy, decrease access to med. care, intermediate, rehab)? @ -No Was there de-escalation of care discussed even if they declined? (Discuss DNR or withdrawal of care, Hospice)? @ -No What co-morbidities impacted this encounter? (DM, HTN, Smoking, COPD, CAD, Cancer, CVA, Hep., AIDS, mental health diagnosis, sleep apnea, morbid obesity)? @ -None Was patient admitted / discharged? @ -Discharged. Chest x-ray obtained revealing a right middle lobe opacity suggestive of pneumonia. Covid, influenza, and RSV testing were negative. DuoNeb breathing treatment administered, which she states was very helpful. She was given IM Toradol for her headache. An initial dose of azithromycin was administered. Prescription for an additional 4 days of azithromycin, promethazine DM cough syrup, and an albuterol inhaler provided with dosing instructions reviewed. Otherwise advised supportive care and alternating with ibuprofen and Tylenol as needed for fevers and additional headaches. Undiagnosed new problem with uncertain prognosis? @ -None Drug Therapy requiring intensive monitoring for toxicity (Heparin, Nitro, Insulin, Cardizem)? @ -None Were any procedures done? @ -None Diagnosis/symptom? @ -Pneumonia Acute, or Chronic, or Acute on Chronic? @ -Acute Uncomplicated (without systemic symptoms) or Complicated (systemic symptoms)? @ -Uncomplicated Side effects of treatment? @ -None Exacerbation, Progression, or Severe Exacerbation] @ -Not applicable Poses a threat to life or bodily function? @ -No Return precautions reviewed in depth, the patient is instructed to return to the emergency department with any new, worsening, or concerning symptoms. Patient verbalized understanding. This case was discussed in detail with the attending ED physician, Dr. Treadwell. Presentation, findings, and treatment plan discussed in detail as well. - Lab Data Lab Results 12/26/22 Range/Units 16:57 Influenza Type A (PCR) Not Detected (Not Detectd) Influenza Type B (PCR) Not Detected (Not Detectd) RSV (PCR) Not Detected (Not Detectd) SARS-CoV-2 (PCR) Not Detected (Not Detectd) - Radiology Data Radiology results: report reviewed, image reviewed Disposition Clinical Impression: Pneumonia Disposition: HOME SELF-CARE Instructions (If sedation given, give patient instructions): Pneumonia (ED) Additional Instructions: Return to the emergency department with any new, worsening, or concerning symptoms. Take the antibiotic as prescribed for an additional 4 days, with your next dose beginning tomorrow, as you received a dose in the emergency department today. You can take the cough medicine every 4-6 hours as needed. You can also use the albuterol inhaler every 4-6 hours as needed for difficulty breathing. Follow up with your primary care provider in 1-2 days. Prescriptions: Promethazine/Dextromethorphan [Promethazine-Dm Syrup] 5 ml PO Q4-6H PRN #473 ml PRN Reason: Cough Albuterol Inhaler [Ventolin Hfa Inhaler] 1 - 2 puff INHALATION Q6H PRN #1 each PRN Reason: Shortness Of Breath Azithromycin [Zithromax] 250 mg PO DAILY 4 Days #4 tab Is patient prescribed a controlled substance at d/c from ED?: No Referrals: None,Stated [Primary Care Provider] - 1-2 days
--- NOTE | 2022-12-26 17:25 | XR ---
EXAMINATION TYPE: XR chest 2V DATE OF EXAM: 12/26/2022 5:19 PM COMPARISON: Chest radiographs from 07/06/2021, CTA chest 12/07/2020 TECHNIQUE: XR chest 2V Frontal and lateral views of the chest. CLINICAL INDICATION:Female, 22 years old with history of Cough, JORJE; FINDINGS: Lungs/Pleura: No pleural effusion or pneumothorax. Patchy right middle lobe airspace opacity. Pulmonary vascularity: Unremarkable. Heart/mediastinum: Cardiomediastinal silhouette is unremarkable. Musculoskeletal: No acute osseous pathology. IMPRESSION: Patchy right middle lobe airspace opacity consistent with pneumonia.
[2022-12-26] MEDS ORDERED: AZITHROMYCIN 500 MG TAB PO STA (17:27)
[2022-12-26] MEDS ORDERED: IBUPROFEN 600 MG STARTER PACK 4 TAB BTL PO STA (18:23)
[2022-12-26] MEDS ORDERED: ACET/COD 300 MG/30 MG STARTER PACK 6 TAB BTL PO STA (18:23)
[2022-12-26 18:47] VITALS: BP 99/70; PULSE 104; RESP 16; TEMP 99.9
== END 2022-12-26 18:47 | disposition home or self-care (01) ==
LOC: EC 16:12
DX: J18.9 Pneumonia, unspecified organism (principal); Z87.891 Personal history of nicotine dependence; Z88.8 Allergy status to other drugs, medicaments and biological substances; Z20.822 Contact with and (suspected) exposure to COVID-19
CPT/HCPCS: 94640; 87636; 71046; 99284; 96372; J1885

== ENCOUNTER 2022-12-30 02:10 | Emergency (ER) | payer OTHER ==
[2022-12-30 02:33] VITALS: BP 119/77; PULSE 96; RESP 18; TEMP 97
[2022-12-30 02:58] LABS: ALT 15 U/L (4-34); AST 25 U/L (14-36); African American GFR (CKD) >90 (>60 ml/min/1.73 sqM); Albumin 3.8 g/dL (3.5-5.0); Alkaline Phosphatase 60 U/L (38-126); Anion Gap 12 mmol/L; Blood Urea Nitrogen 14 mg/dL (7-17); Calcium 8.5 mg/dL (8.4-10.2); Carbon Dioxide 19 mmol/L (22-30); Chloride 102 mmol/L (98-107); Glucose 79 mg/dL (74-99); Non-African American GFR(CKD) >90 (>60 ml/min/1.73 sqM); Potassium 3.8 mmol/L (3.5-5.1); Sodium 133 mmol/L (137-145); Total Bilirubin 1.8 mg/dL (0.2-1.3); Total Protein 6.7 g/dL (6.3-8.2)
[2022-12-30 03:10] LABS: Basophils % (A) 0 %; Eosinophils # (A) 0.1 k/uL (0-0.7); Eosinophils % (A) 3 %; HCT 36.7 % (34.0-46.0); HGB 12.8 gm/dL (11.4-16.0); Lymphocytes # (A) 1.7 k/uL (1.0-4.8); Lymphocytes % (A) 32 %; MCH 28.4 pg (25.0-35.0); Mean Platelet Volume 8.7; Monocytes # (A) 0.3 k/uL (0-1.0); Monocytes % (A) 6 %; Neutrophils % (A) 57 %; Platelet Count 245 k/uL (150-450); RBC 4.53 m/uL (3.80-5.40); RDW 12.6 % (11.5-15.5); WBC 5.3 k/uL (3.8-10.6)
[2022-12-30 03:18] LABS: Amorphous Sediment,Urine Rare /hpf; Appearance,Urine Cloudy (Clear); Bilirubin,Urine Negative (Negative); Blood,Urine Negative (Negative); Color,Urine Yellow; Glucose,Urine (UA) Negative (Negative); Hyaline Casts,Urine 31 /lpf (0-2); Ketones,Urine 2+ (Negative); Leukocyte Esterase,Urine Negative (Negative); Mucus,Urine Many /hpf; Nitrite,Urine Negative (Negative); PH, Urine 5.5 (5.0-8.0); Protein,Urine Trace (Negative); RBC,Urine 1 /hpf (0-5); Specific Gravity,Urine 1.028 (1.001-1.035); Squamous Epithelial Cell,Urine 7 /hpf (0-4); WBC,Urine 1 /hpf (0-5)
[2022-12-30] MEDS ORDERED: SODIUM CHLORIDE 0.9% 1,000 ML IV ONE (03:54)
--- NOTE | 2022-12-30 06:59 | ED ---
General Adult HPI - General Chief complaint: Upper Respiratory Infection Stated complaint: Abd pain Time Seen by Provider: 12/30/22 02:21 Source: patient Mode of arrival: EMS Limitations: no limitations - History of Present Illness Initial comments: This patient is 22-year-old woman who presents with worsening of cough, a little shortness of breath, feeling fever and chills, burning chest pain with cough. -: days(s) Location: chest Radiation: non-radiation Quality: burning, aching Consistency: intermittent Improves with: none Worsens with: other Associated Symptoms: cough (Cough), fever/chills - Related Data Home Medications Medication Instructions Recorded Confirmed diphenhydrAMINE HCL [Benadryl] 25 mg PO DAILY PRN 11/20/22 11/20/22 Previous Rx's Medication Instructions Recorded Albuterol Inhaler [Ventolin Hfa 1 - 2 puff INHALATION Q6H PRN #1 12/26/22 Inhaler] each Azithromycin [Zithromax] 250 mg PO DAILY 4 Days #4 tab 12/26/22 Promethazine/Dextromethorphan 5 ml PO Q4-6H PRN #473 ml 12/26/22 [Promethazine-Dm Syrup] Allergies Allergy/AdvReac Type Severity Reaction Status Date / Time cat dander Allergy Rash/Hives Verified 12/26/22 16:16 cat's claw Allergy Swelling Verified 12/26/22 16:16 dust Allergy Wheezing Uncoded 12/26/22 16:16 Review of Systems ROS Statement: Those systems with pertinent positive or pertinent negative responses have been documented in the HPI. ROS Other: All systems not noted in ROS Statement are negative. Constitutional: Reports: fever Respiratory: Reports: cough. Denies: dyspnea, wheezes, hemoptysis Cardiovascular: Reports: chest pain. Denies: palpitations, orthopnea, edema, syncope Gastrointestinal: Denies: abdominal pain, vomiting, diarrhea Genitourinary: Denies: dysuria, frequency, hematuria Musculoskeletal: Denies: back pain Skin: Denies: rash Neurological: Denies: headache, weakness Past Medical History Past Medical History: CVA/TIA, Pulmonary Embolus (PE) History of Any Multi-Drug Resistant Organisms: None Reported Past Surgical History: No Surgical Hx Reported Past Psychological History: No Psychological Hx Reported Smoking Status: Former smoker Past Alcohol Use History: Rare Past Drug Use History: None Reported General Exam General appearance: alert, in no apparent distress Head exam: Present: atraumatic, normocephalic Eye exam: Present: normal appearance. Absent: scleral icterus, conjunctival injection ENT exam: Present: normal oropharynx Neck exam: Present: normal inspection Respiratory exam: Present: rales. Absent: respiratory distress, wheezes, rhonchi, stridor, accessory muscle use Cardiovascular Exam: Present: regular rate, normal rhythm, normal heart sounds. Absent: systolic murmur, diastolic murmur, rubs, gallop GI/Abdominal exam: Present: soft. Absent: distended, tenderness, guarding, rebound, rigid, mass Extremities exam: Present: normal inspection, normal capillary refill. Absent: pedal edema, calf tenderness Back exam: Present: normal inspection. Absent: CVA tenderness (R), CVA tenderness (L) Neurological exam: Present: alert Skin exam: Present: warm, dry, intact, normal color. Absent: rash Course Vital Signs 12/30/22 02:27 Temperature 97.0 F L Pulse Rate 96 Respiratory 18 Rate Blood Pressure 119/77 O2 Sat by Pulse 100 Oximetry Medical Decision Making - Medical Decision Making This patient is 22-year-old woman here with cough, subjective fever, dyspnea going back days now. On auscultation there is small area of crackles, and consistent with clinical pneumonia. Patient does appear mildly dehydrated on exam and labs. She is given IV fluids, discussed appropriate follow-up and return parameters and patient feeling better we'll go home. Was pt. sent in by a medical professional or institution (, PA, CAKE MAKER, urgent care, hospital, or intermediate...) When possible be specific @ -[No] Did you speak to anyone other than the patient for history (EMS, parent, family, police, friend...)? What history was obtained from this source @ -[No] Did you review nursing and triage notes (agree or disagree)? Why? @ -[I reviewed and agree with nursing and triage notes] Were old charts reviewed (outside hosp., previous admission, EMS record, old EKG, old radiological studies, urgent care reports/EKG's, intermediate records)? Report findings @ -[No old charts were reviewed] Differential Diagnosis (chest pain, altered mental status, abdominal pain women, abdominal pain men, vaginal bleeding, weakness, fever, dyspnea, syncope, headache, dizziness, GI bleed, back pain, seizure, CVA, palpatations, mental health, musculoskeletal)? @ -[Differential Dyspnea: Coronary syndrome, arrhythmia, tamponade, asthma, COPD, pulmonary embolism, pneumonia, pneumothorax, pulmonary effusion, anaphylaxis, diabetic ketoacidosis, flailed chest, pulmonary contusion, diaphragmatic rupture, anemia, neuromuscular, this is not meant to be an all-inclusive list. EKG interpreted by me (3pts min.). @ -[ X-rays interpreted by me (1pt min.). @ -[None done] CT interpreted by me (1pt min.). @ -[None done] U/S interpreted by me (1pt. min.). @ -[None done] What testing was considered but not performed or refused? (CT, X-rays, U/S, labs)? Why? @ -[None] What meds were considered but not given or refused? Why? @ -[None] Did you discuss the management of the patient with other professionals (professionals i.e. , PA, CAKE MAKER, lab, RT, psych nurse, criminal justice social worker, linter drier operator, teacher, national service officer, piano case maker)? Give summary @ -[No] Was smoking cessation discussed for >3mins.? @ -[No] Was critical care preformed (if so, how long)? @ -[No] Were there social determinants of health that impacted care today? How? (Homelessness, low income, unemployed, alcoholism, drug addiction, transportation, low edu. Level, literacy, decrease access to med. care, fdc, rehab)? @ -[No] Was there de-escalation of care discussed even if they declined (Discuss DNR or withdrawal of care, Hospice)? DNR status @ -[No] What co-morbidities impacted this encounter? (DM, HTN, Smoking, COPD, CAD, Cancer, CVA, ARF, Chemo, Hep., AIDS, mental health diagnosis, sleep apnea, morbid obesity)? @ -[None] Was patient admitted / discharged? Hospital course, mention meds given and route, prescriptions, significant lab abnormalities, going to OR and other pertinent info. @ -[Discharged with close follow-up Undiagnosed new problem with uncertain prognosis? @ -[No] Drug Therapy requiring intensive monitoring for toxicity (Heparin, Nitro, Insulin, Cardizem)? @ -[No] Were any procedures done? @ -[No] Diagnosis/symptom? @ -[Mild dehydration, acute Acute viral pneumonia Acute, or Chronic, or Acute on Chronic? @ -[default] Uncomplicated (without systemic symptoms) or Complicated (systemic symptoms)? @ -[Uncomplicated Side effects of treatment? @ -[No] Exacerbation, Progression, or Severe Exacerbation? @ -[No] Poses a threat to life or bodily function? How? (Chest pain, [place], PA, pneumonia, PE, COPD, DKA, ARF, appy, cholecystitis, CVA, Diverticulitis, Homicidal, Suicidal, threat to staff... and all critical care pts) @ -[No] - Lab Data Result diagrams: 12/30/22 02:39 12/30/22 02:39 Lab Results 12/30/22 12/30/22 12/30/22 Range/Units 02:36 02:36 02:39 WBC 5.3 (3.8-10.6) k/uL RBC 4.53 (3.80-5.40) m/uL Hgb 12.8 (11.4-16.0) gm/dL Hct 36.7 (34.0-46.0) % MCV 81.0 (80.0-100.0) fL MCH 28.4 (25.0-35.0) pg MCHC 35.0 (31.0-37.0) g/dL RDW 12.6 (11.5-15.5) % Plt Count 245 (150-450) k/uL MPV 8.7 Neutrophils % 57 % Lymphocytes % 32 % Monocytes % 6 % Eosinophils % 3 % Basophils % 0 % Neutrophils # 3.0 (1.3-7.7) k/uL Lymphocytes # 1.7 (1.0-4.8) k/uL Monocytes # 0.3 (0-1.0) k/uL Eosinophils # 0.1 (0-0.7) k/uL Basophils # 0.0 (0-0.2) k/uL Sodium (137-145) mmol/L Potassium (3.5-5.1) mmol/L Chloride (98-107) mmol/L Carbon Dioxide (22-30) mmol/L Anion Gap mmol/L BUN (7-17) mg/dL Creatinine (0.52-1.04) mg/dL Est GFR (CKD-EPI)AfAm (>60 ml/min/1.73 sqM) Est GFR (CKD-EPI)NonAf (>60 ml/min/1.73 sqM) Glucose (74-99) mg/dL Calcium (8.4-10.2) mg/dL Total Bilirubin (0.2-1.3) mg/dL AST (14-36) U/L ALT (4-34) U/L Alkaline Phosphatase (38-126) U/L Total Protein (6.3-8.2) g/dL Albumin (3.5-5.0) g/dL Urine Color Yellow Urine Appearance Cloudy H (Clear) Urine pH 5.5 (5.0-8.0) Ur Specific [place] 1.028 (1.001-1.035) Urine Protein Trace H (Negative) Urine Glucose (UA) Negative (Negative) Urine Ketones 2+ H (Negative) Urine Blood Negative (Negative) Urine Nitrite Negative (Negative) Urine Bilirubin Negative (Negative) Urine Urobilinogen 3.0 (<2.0) mg/dL Ur Leukocyte Esterase Negative (Negative) Urine RBC 1 (0-5) /hpf Urine WBC 1 (0-5) /hpf Ur Squamous Epith Cells 7 H (0-4) /hpf Amorphous Sediment Rare H (None) /hpf Hyaline Casts 31 H (0-2) /lpf Urine Mucus Many H (None) /hpf Urine HCG, Qual Not Detected (Not Detectd) 12/30/22 Range/Units 02:39 WBC (3.8-10.6) k/uL RBC (3.80-5.40) m/uL Hgb (11.4-16.0) gm/dL Hct (34.0-46.0) % MCV (80.0-100.0) fL MCH (25.0-35.0) pg MCHC (31.0-37.0) g/dL RDW (11.5-15.5) % Plt Count (150-450) k/uL MPV Neutrophils % % Lymphocytes % % Monocytes % % Eosinophils % % Basophils % % Neutrophils # (1.3-7.7) k/uL Lymphocytes # (1.0-4.8) k/uL Monocytes # (0-1.0) k/uL Eosinophils # (0-0.7) k/uL Basophils # (0-0.2) k/uL Sodium 133 L (137-145) mmol/L Potassium 3.8 (3.5-5.1) mmol/L Chloride 102 (98-107) mmol/L Carbon Dioxide 19 L (22-30) mmol/L Anion Gap 12 mmol/L BUN 14 (7-17) mg/dL Creatinine 0.51 L (0.52-1.04) mg/dL Est GFR (CKD-EPI)AfAm >90 (>60 ml/min/1.73 sqM) Est GFR (CKD-EPI)NonAf >90 (>60 ml/min/1.73 sqM) Glucose 79 (74-99) mg/dL Calcium 8.5 (8.4-10.2) mg/dL Total Bilirubin 1.8 H (0.2-1.3) mg/dL AST 25 (14-36) U/L ALT 15 (4-34) U/L Alkaline Phosphatase 60 (38-126) U/L Total Protein 6.7 (6.3-8.2) g/dL Albumin 3.8 (3.5-5.0) g/dL Urine Color Urine Appearance (Clear) Urine pH (5.0-8.0) Ur Specific [place] (1.001-1.035) Urine Protein (Negative) Urine Glucose (UA) (Negative) Urine Ketones (Negative) Urine Blood (Negative) Urine Nitrite (Negative) Urine Bilirubin (Negative) Urine Urobilinogen (<2.0) mg/dL Ur Leukocyte Esterase (Negative) Urine RBC (0-5) /hpf Urine WBC (0-5) /hpf Ur Squamous Epith Cells (0-4) /hpf Amorphous Sediment (None) /hpf Hyaline Casts (0-2) /lpf Urine Mucus (None) /hpf Urine HCG, Qual (Not Detectd) Disposition Clinical Impression: Pneumonia, Dehydration Disposition: HOME SELF-CARE Condition: Good Instructions (If sedation given, give patient instructions): Dehydration (ED) Is patient prescribed a controlled substance at d/c from ED?: No Referrals: Tunde Elam MD [Primary Care Provider] - 1-2 days
== END 2022-12-30 07:13 | disposition home or self-care (01) ==
LOC: EC 02:10
DX: J18.9 Pneumonia, unspecified organism (principal); E86.0 Dehydration; Z87.891 Personal history of nicotine dependence
CPT/HCPCS: 36415; 80053; 81001; 81025; 85025; 96360; 99284

== ENCOUNTER 2023-03-04 12:39 | Emergency (ER) | payer OTHER ==
[2023-03-04 13:08] LABS: Basophils % (A) 1 %; Eosinophils # (A) 0.2 k/uL (0-0.7); Eosinophils % (A) 4 %; HCT 41.3 % (34.0-46.0); HGB 14.4 gm/dL (11.4-16.0); Lymphocytes # (A) 1.8 k/uL (1.0-4.8); Lymphocytes % (A) 33 %; MCH 29.6 pg (25.0-35.0); MCHC 34.9 g/dL (31.0-37.0); MCV 84.7 fL (80.0-100.0); Mean Platelet Volume 7.8; Monocytes # (A) 0.3 k/uL (0-1.0); Monocytes % (A) 5 %; Neutrophils # (A) 3.1 k/uL (1.3-7.7); Neutrophils % (A) 56 %; Platelet Count 226 k/uL (150-450); RBC 4.87 m/uL (3.80-5.40); RDW 12.9 % (11.5-15.5); WBC 5.5 k/uL (3.8-10.6)
[2023-03-04 13:18] LABS: ALT 18 U/L (4-34); AST 24 U/L (14-36); African American GFR (CKD) >90 (>60 ml/min/1.73 sqM); Albumin 4.5 g/dL (3.5-5.0); Alkaline Phosphatase 53 U/L (38-126); Anion Gap 10 mmol/L; Blood Urea Nitrogen 8 mg/dL (7-17); Calcium 9.2 mg/dL (8.4-10.2); Carbon Dioxide 22 mmol/L (22-30); Chloride 102 mmol/L (98-107); Glucose 71 mg/dL (74-99); Non-African American GFR(CKD) >90 (>60 ml/min/1.73 sqM); Potassium 3.4 mmol/L (3.5-5.1); Sodium 134 mmol/L (137-145); Total Bilirubin 1.4 mg/dL (0.2-1.3); Total Protein 7.7 g/dL (6.3-8.2)
--- NOTE | 2023-03-04 13:24 | ED ---
Abdominal Pain HPI - General Chief Complaint: Abdominal Pain Stated Complaint: Cramping, Time Seen by Provider: 03/04/23 12:50 Source: patient Mode of arrival: ambulatory Limitations: no limitations - History of Present Illness Initial Comments: 22-year-old A0 presents to the ED with a chief complaint of abdominal cramping. Patient states last menstrual period first day January 13. States over the past few days has had lower abdominal cramping, no vaginal bleeding. No nausea or vomiting. No other complaints. - Related Data Home Medications Medication Instructions Recorded Confirmed Loratadine [Claritin] 10 mg PO DAILY PRN 03/04/23 03/04/23 Previous Rx's Medication Instructions Recorded [id number]-[id number] Acid 1 each PO DAILY #30 cap 03/04/23 [-U Capsule] Allergies Allergy/AdvReac Type Severity Reaction Status Date / Time cat dander Allergy Rash/Hives Verified 03/04/23 15:35 cat's claw Allergy Swelling Verified 03/04/23 15:35 dust Allergy Wheezing Uncoded 03/04/23 15:35 Review of Systems ROS Statement: Those systems with pertinent positive or pertinent negative responses have been documented in the HPI. ROS Other: All systems not noted in ROS Statement are negative. Past Medical History Past Medical History: CVA/TIA, Pulmonary Embolus (PE) History of Any Multi-Drug Resistant Organisms: None Reported Past Surgical History: No Surgical Hx Reported Past Psychological History: No Psychological Hx Reported Smoking Status: Former smoker Past Alcohol Use History: Rare Past Drug Use History: None Reported General Exam Limitations: no limitations General appearance: alert, in no apparent distress Eye exam: Present: normal appearance Respiratory exam: Present: normal lung sounds bilaterally Cardiovascular Exam: Present: regular rate, normal rhythm GI/Abdominal exam: Present: soft, tenderness (Diffuse lower abdominal tenderness to palpation.) Back exam: Present: normal inspection Neurological exam: Present: alert, oriented X3 Psychiatric exam: Present: normal affect, normal mood Skin exam: Present: warm, dry Course Vital Signs 03/04/23 03/04/23 03/04/23 12:40 14:55 15:45 Temperature 97.4 F L 98.4 F Pulse Rate 57 L 82 90 Respiratory 16 16 18 Rate Blood Pressure 115/83 108/7 112/72 O2 Sat by Pulse 96 97 100 Oximetry Medical Decision Making - Medical Decision Making Was pt. sent in by a medical professional or institution (CALLIE Howe, DIETARY SERVICES DIRECTOR, urgent care, hospital, or [place] [facility] facility...) When possible be specific @ -No Did you speak to anyone other than the patient for history (EMS, parent, family, police, friend...)? What history was obtained from this source @ -No Did you review nursing and triage notes (agree or disagree)? Why? @ -I reviewed and agree with nursing and triage notes Were old charts reviewed (outside hosp., previous admission, EMS record, old EKG, old radiological studies, urgent care reports/EKG's, [place] [facility] facility records)? Report findings @ -No old charts were reviewed Differential Diagnosis (chest pain, altered mental status, abdominal pain women, abdominal pain men, vaginal bleeding, weakness, fever, dyspnea, syncope, headache, dizziness, GI bleed, back pain, seizure, CVA, palpatations, mental health, musculoskeletal)? @ -Differential Abdominal Pain Women: Appendicitis, Cholecystitis, diverticulosis, ischemic bowel, pancreatitis, hepatitis, UTI, gastroenteritis, AAA, incarcerated hernia, bowel obstruction, c onstipation, inflammatory bowel, hepatitis, peptic ulcer disease, splenic infarction, perforated viscus, vulvitis, ovarian torsion, PID, kidney stone, placenta abruption, this is not meant to be an all-inclusive list EKG interpreted by me (3pts min.). @ -None X-rays interpreted by me (1pt min.). @ -None done CT interpreted by me (1pt min.). @ -None done U/S interpreted by me (1pt. min.). @ -Ultrasound showed IUP at approximately 6 weeks. No acute findings. What testing was considered but not performed or refused? (CT, X-rays, U/S, labs)? Why? @ -None What meds were considered but not given or refused? Why? @ -None Did you discuss the management of the patient with other professionals (professionals i.e. CALLIE Howe, DIETARY SERVICES DIRECTOR, lab, RT, psych nurse, professor of social work, information security analyst, teacher, gunnery/ordnance officer, counseling case manager)? Give summary @ -No Was smoking cessation discussed for >3mins.? @ -No Was critical care preformed (if so, how long)? @ -No Were there social determinants of health that impacted care today? How? (Homelessness, low income, unemployed, alcoholism, drug addiction, transportation, low edu. Level, literacy, decrease access to med. care, snf, rehab)? @ -No Was there de-escalation of care discussed even if they declined (Discuss DNR or withdrawal of care, Hospice)? DNR status @ -No What co-morbidities impacted this encounter? (DM, HTN, Smoking, COPD, CAD, Cancer, CVA, ARF, Chemo, Hep., AIDS, mental health diagnosis, sleep apnea, morbid obesity)? @ -None Was patient admitted / discharged? Hospital course, mention meds given and route, prescriptions, significant lab abnormalities, going to OR and other pertinent info. @ -Discharge. Laboratory studies and urine here unremarkable. Ultrasound showed IUP without evidence of ectopic . Patient will be discharged home. Undiagnosed new problem with uncertain prognosis? @ -No Drug Therapy requiring intensive monitoring for toxicity (Heparin, Nitro, Insulin, Cardizem)? @ -No Were any procedures done? @ -No Diagnosis/symptom? @ -, IUP Acute, or Chronic, or Acute on Chronic? @ -Acute Uncomplicated (without systemic symptoms) or Complicated (systemic symptoms)? @ -Uncomplicated Side effects of treatment? @ -No Exacerbation, Progression, or Severe Exacerbation? @ -No Poses a threat to life or bodily function? How? (Chest pain, [place], [place], pneumonia, PE, COPD, DKA, ARF, appy, cholecystitis, CVA, Diverticulitis, Homicidal, Suicidal, threat to staff... and all critical care pts) @ -No - Lab Data Result diagrams: 03/04/23 12:58 03/04/23 12:58 Lab Results 03/04/23 03/04/23 03/04/23 Range/Units 12:58 12:58 13:54 WBC 5.5 (3.8-10.6) k/uL RBC 4.87 (3.80-5.40) m/uL Hgb 14.4 (11.4-16.0) gm/dL Hct 41.3 (34.0-46.0) % MCV 84.7 (80.0-100.0) fL MCH 29.6 (25.0-35.0) pg MCHC 34.9 (31.0-37.0) g/dL RDW 12.9 (11.5-15.5) % Plt Count 226 (150-450) k/uL MPV 7.8 Neutrophils % 56 % Lymphocytes % 33 % Monocytes % 5 % Eosinophils % 4 % Basophils % 1 % Neutrophils # 3.1 (1.3-7.7) k/uL Lymphocytes # 1.8 (1.0-4.8) k/uL Monocytes # 0.3 (0-1.0) k/uL Eosinophils # 0.2 (0-0.7) k/uL Basophils # 0.0 (0-0.2) k/uL Sodium 134 L (137-145) mmol/L Potassium 3.4 L (3.5-5.1) mmol/L Chloride 102 (98-107) mmol/L Carbon Dioxide 22 (22-30) mmol/L Anion Gap 10 mmol/L BUN 8 (7-17) mg/dL Creatinine 0.44 L (0.52-1.04) mg/dL Est GFR (CKD-EPI)AfAm >90 (>60 ml/min/1.73 sqM) Est GFR (CKD-EPI)NonAf >90 (>60 ml/min/1.73 sqM) Glucose 71 L (74-99) mg/dL Calcium 9.2 (8.4-10.2) mg/dL Total Bilirubin 1.4 H (0.2-1.3) mg/dL AST 24 (14-36) U/L ALT 18 (4-34) U/L Alkaline Phosphatase 53 (38-126) U/L Total Protein 7.7 (6.3-8.2) g/dL Albumin 4.5 (3.5-5.0) g/dL HCG, Qual Detected Urine Color Colorless Urine Appearance Clear (Clear) Urine pH 7.0 (5.0-8.0) Ur Specific [place] 1.003 (1.001-1.035) Urine Protein Negative (Negative) Urine Glucose (UA) Negative (Negative) Urine Ketones Negative (Negative) Urine Blood Negative (Negative) Urine Nitrite Negative (Negative) Urine Bilirubin Negative (Negative) Urine Urobilinogen <2.0 (<2.0) mg/dL Ur Leukocyte Esterase Negative (Negative) Disposition Clinical Impression: Normal IUP (intrauterine ) on ultrasound, Disposition: HOME SELF-CARE Condition: Good Instructions (If sedation given, give patient instructions): Nausea and Vomiting in (ED), (ED) Additional Instructions: Please return to the Emergency Department if symptoms worsen or any other concerns. Prescriptions: Vee-Nsqr-Onuyc Acid [-U Capsule] 1 each PO DAILY #30 cap Is patient prescribed a controlled substance at d/c from ED?: No Referrals: None,Stated [Primary Care Provider] - 1-2 days Time of Disposition: 15:38
[2023-03-04 13:29] LABS: HCG,Qualitative Serum Detected
[2023-03-04 14:11] LABS: Appearance,Urine Clear (Clear); Bilirubin,Urine Negative (Negative); Blood,Urine Negative (Negative); Color,Urine Colorless; Glucose,Urine (UA) Negative (Negative); Ketones,Urine Negative (Negative); Leukocyte Esterase,Urine Negative (Negative); Nitrite,Urine Negative (Negative); Protein,Urine Negative (Negative); Specific Gravity,Urine 1.003 (1.001-1.035); Urobilinogen,Urine <2.0 mg/dL (<2.0)
--- NOTE | 2023-03-04 14:43 | US ---
EXAMINATION TYPE: Transabdominal DATE OF EXAM: 03/04/2023 2:01 PM COMPARISON: 07/17/2022. CLINICAL INDICATION: Female, 22 years old with history of abd pain. 4-5 weeks . No bleeding; cramping EXAM PERFORMED: Transvaginal (TV) EXAM MEASUREMENTS: GESTATIONAL AGE / DATING Dates by LMP: (7 weeks/1 days) EDC: 10/20/2023 Dates by Current Scan for: (6 weeks/1 days) EDC: 10/13/2023 MATERNAL ANATOMY Uterus: 7.9x3.4x5.6cm Right Ovary: 3.0x2.7x2.8cm Left Ovary: 3.7x2.7x2.0, cystic area again seen: 3.6x2.8x3.8cm Post CDS / Adnexa: free fluid in posterior cul-de-sac Presence of free fluid: yes Presence of corpus luteal cyst: yes, RT ovary: 2.1x1.9x2.1cm Presence of subchorionic bleed: no GESTATION / SURVEY CRL: 0.39 (6 weeks/1 days) MSD: 1.58 (5 weeks/3 days) Yolk Sac (normal less than 6mm): yes Heart Rate: 102 bpm Rhythm: Normal IUP: Viable IUP Age Appropriate Anatomy Date of LMP: 01/13/2023 Beta HcG (if available): Not available at this time dilated pelvic vessels noted IMPRESSION: 1. Single live intrauterine gestation with ultrasound age of 6 weeks 1 day. 2. Dilated vessels within the pelvis which could represent a component of venous vascular congestion , findings are seen on prior ultrasound in 2021.
[2023-03-04 14:57] VITALS: TEMP 98.4
[2023-03-04 15:46] VITALS: BP 112/72; PULSE 90; RESP 18
== END 2023-03-04 15:46 | disposition home or self-care (01) ==
LOC: EC 12:39
DX: O00.01 Abdominal pregnancy with intrauterine pregnancy (principal); Z87.891 Personal history of nicotine dependence; Z88.8 Allergy status to other drugs, medicaments and biological substances; Z3A.01 Less than 8 weeks gestation of pregnancy
CPT/HCPCS: 36415; 76801; 76817; 80053; 81003; 84703; 85025; 99284

== ENCOUNTER 2023-07-07 18:09 | Outpatient (CLI) | payer OTHER ==
[2023-07-07 18:56] LABS: Basophils % (A) 0 %; Eosinophils # (A) 0.2 k/uL (0-0.7); Eosinophils % (A) 3 %; HCT 34.6 % (34.0-46.0); HGB 12.3 gm/dL (11.4-16.0); Lymphocytes # (A) 1.6 k/uL (1.0-4.8); Lymphocytes % (A) 19 %; MCH 30.1 pg (25.0-35.0); MCHC 35.6 g/dL (31.0-37.0); MCV 84.4 fL (80.0-100.0); Monocytes # (A) 0.4 k/uL (0-1.0); Monocytes % (A) 4 %; Neutrophils # (A) 6.3 k/uL (1.3-7.7); Neutrophils % (A) 72 %; Platelet Count 251 k/uL (150-450); Poikilocytosis Slight; RDW 14.1 % (11.5-15.5); WBC 8.7 k/uL (3.8-10.6)
[2023-07-07 19:02] LABS: Appearance,Urine Slightly Cloudy (Clear); Color,Urine Light Yellow; Glucose,Urine (UA) Negative (Negative); Protein,Urine Negative (Negative)
[2023-07-07 19:03] LABS: Bilirubin,Urine Negative (Negative); Blood,Urine Negative (Negative); Ketones,Urine 2+ (Negative); Leukocyte Esterase,Urine Moderate (Negative); Nitrite,Urine Negative (Negative); Urobilinogen,Urine <2.0 mg/dL (<2.0)
[2023-07-07 19:05] LABS: Bacteria,Urine Occasional /hpf; Mucus,Urine Rare /hpf; RBC,Urine 1 /hpf (0-5); Squamous Epithelial Cell,Urine 14 /hpf (0-4); WBC,Urine 1 /hpf (0-5)
[2023-07-07 19:31] VITALS: BP 129/87; PULSE 86; RESP 16; TEMP 97.9
--- NOTE | 2023-07-19 11:11 | P.MSEPDOC ---
Presenting Problems - Arrival Data Date of Arrival on Unit: 07/07/23 Time of Arrival on Unit: 18:09 Mode of Transport: Ambulatory - Complaint OB-Reason for Admission/Chief Complaint: Pain Comment: pt. present to triage due to left flank pain rating 9/10 Medical History - Information : 1 Para: 0 Term: 0 : 0 Abortions: Spontaneous or Elective: 0 Number of Living Children: 0 - Gestational Age Gestational Age by SALLY (wks/days): 24 Weeks and 0 Days - History Complications: Smoker Comment: nancy Review of Systems - Review of Systems Constitutional: No problems Breast: No problems ENT: No problems Cardiovascular: No problems Respiratory: No problems Gastrointestinal: No problems Genitourinary: No problems Musculoskeletal: No problems Neurological: No problems Skin: No problems Vital Signs - Temperature Temperature: 97.9 F Temperature Source: Temporal Artery Scan - Pulse Pulse Oximetery Pulse Rate: 86 Pulse Assessment Method: Automatic Cuff - Respirations Respiratory Rate: 16 Oxygen Delivery Method: Room Air O2 Sat by Pulse Oximetry: 100 - Blood Pressure Right Arm Blood Pressure: 129/87 Blood Pressure Mean: 101 Medical Screen Scoring - Assessment - Baby A Baseline FHR: 146 Heart Rate - NICHD Category: Category I (Normal) Physician Notification - Physician Notified Physician Notified Date: 07/07/23 Physician Notified Time: 19:05 Physician: scooter New Order Received: Yes - Notification Comment Comment: lab results reviewed, order for C&S on urine,D/c Pt. home and have pt. follow up this week in office. Maternal Triage Index - Maternal Triage Index Presenting for scheduled procedure w/no complaint: No - Stat/Priority 1 Stat Priority 1: No - Urgent/Priority 2 Urgent Priority 2: Yes Provider Notified: [facility] Provider Notified Time: 18:30 Criteria Met for Priority 2: orders for UA C&S, CBC, and oral hydrate Disposition - Disposition OB Disposition: Discharge to home Discharge Date: 07/07/23 Discharge Time: 19:14 I agree with the RN Medical Screening Exam: Yes Physician's MSE Comment: I have neither seen nor examined the patient. Case reviewed; plan agreed upon as documented in EMR&OBIX.: Yes Diagnosis: RELATED CONDITIONS, UNSPECIFIED, SECOND TRIMESTER
== END 2023-07-07 19:14 | disposition home or self-care (01) ==
LOC: FBPOP 18:09
PROVIDERS: ATTEND Obstetrics & Gynecology
DX: Z91.09 Other allergy status, other than to drugs and biological substances (principal); R10.9 Unspecified abdominal pain; Z3A.24 24 weeks gestation of pregnancy; O26.892 Other specified pregnancy related conditions, second trimester
CPT/HCPCS: 85025; 81001; 87086; G0463; 99213

== ENCOUNTER 2023-08-20 05:59 | Emergency (ER) | payer OTHER ==
[2023-08-20] MEDS ORDERED: SODIUM CHLORIDE 0.9% 500 ML 500 ML IV STA (06:10)
[2023-08-20 06:11] VITALS: TEMP 98.3
[2023-08-20 06:22] LABS: Basophils % (A) 0 %; Eosinophils # (A) 0.2 k/uL (0-0.7); Eosinophils % (A) 2 %; HCT 35.1 % (34.0-46.0); HGB 12.6 gm/dL (11.4-16.0); Hyperchromasia Slight; Lymphocytes # (A) 2.1 k/uL (1.0-4.8); Lymphocytes % (A) 29 %; MCH 28.9 pg (25.0-35.0); MCV 80.3 fL (80.0-100.0); Mean Platelet Volume 8.2; Monocytes # (A) 0.3 k/uL (0-1.0); Monocytes % (A) 4 %; Neutrophils # (A) 4.6 k/uL (1.3-7.7); Neutrophils % (A) 63 %; Platelet Count 230 k/uL (150-450); Poikilocytosis Slight; RBC 4.37 m/uL (3.80-5.40); RDW 13.5 % (11.5-15.5); WBC 7.4 k/uL (3.8-10.6)
[2023-08-20 06:31] LABS: ALT 17 U/L (4-34); AST 23 U/L (14-36); African American GFR (CKD) >90 (>60 ml/min/1.73 sqM); Albumin 3.3 g/dL (3.5-5.0); Alkaline Phosphatase 126 U/L (38-126); Anion Gap 8 mmol/L; Blood Urea Nitrogen 4 mg/dL (7-17); Calcium 8.2 mg/dL (8.4-10.2); Carbon Dioxide 15 mmol/L (22-30); Chloride 112 mmol/L (98-107); Glucose 79 mg/dL (74-99); Magnesium 1.6 mg/dL (1.6-2.3); Non-African American GFR(CKD) >90 (>60 ml/min/1.73 sqM); Potassium 3.3 mmol/L (3.5-5.1); Sodium 135 mmol/L (137-145); Total Bilirubin 1.1 mg/dL (0.2-1.3); Total Protein 6.2 g/dL (6.3-8.2)
--- NOTE | 2023-08-20 06:36 | ED ---
General Adult HPI <Power Toth - Last Filed: 08/20/23 10:29> - General Source: patient Mode of arrival: EMS Limitations: no limitations <Almita Watkins - Last Filed: 08/29/23 07:31> - General Chief complaint: Back Pain/Injury Stated complaint: Back Pain Time Seen by Provider: 08/20/23 06:03 - History of Present Illness Initial comments: 23-year-old female presents emergency department reporting intrascapular pain. States the pain started earlier in the day. It is intermittent. Denies any pro vocative factors. States the pain right now is currently 10 out of 10. She had some Tylenol earlier today when she was at [facility]. She went into their facility for evaluation. She states that no workup was completed and she was told to drive immediately to our facility for further workup. She went home and called EMS. At this time the pain is 4 out of 10. States that she has some numbness into her right arm and right leg. She was offered morphine by EMS however she refused. She denies any fevers. Patient does have a history of PE and is on Lovenox. States she is compliant with her medications. OB is Dr. Reon (Almita Watkins) - Related Data Home Medications Medication Instructions Recorded Confirmed Loratadine [Claritin] 10 mg PO DAILY PRN 03/04/23 07/07/23 Ondansetron [Zofran] 4 mg PO Q12HR PRN 07/07/23 07/07/23 Previous Rx's Medication Instructions Recorded Aus-Rzhe-Soeih Acid 1 each PO DAILY #30 cap 03/04/23 [-U Capsule] Allergies Allergy/AdvReac Type Severity Reaction Status Date / Time cat dander Allergy Rash/Hives Verified 07/07/23 18:16 cat's claw Allergy Swelling Verified 07/07/23 18:16 dust Allergy Wheezing Uncoded 07/07/23 18:16 Review of Systems ROS Other: All systems not noted in ROS Statement are negative. <Power Toth - Last Filed: 08/20/23 10:29> ROS Other: All systems not noted in ROS Statement are negative. <Almita Watkins - Last Filed: 08/29/23 07:31> ROS Statement: Those systems with pertinent positive or pertinent negative responses have been documented in the HPI. Past Medical History Past Medical History: CVA/TIA, Pulmonary Embolus (PE) History of Any Multi-Drug Resistant Organisms: None Reported Past Surgical History: No Surgical Hx Reported Past Psychological History: No Psychological Hx Reported Smoking Status: Vaper <Almita Watkins - Last Filed: 08/29/23 07:31> General Exam Limitations: no limitations General appearance: alert, in distress Head exam: Present: atraumatic, normocephalic, normal inspection Eye exam: Present: normal appearance, PERRL, EOMI. Absent: scleral icterus, conjunctival injection, periorbital swelling ENT exam: Present: normal exam, mucous membranes moist Neck exam: Present: normal inspection. Absent: tenderness, meningismus, lymphadenopathy Respiratory exam: Present: normal lung sounds bilaterally. Absent: respiratory distress, wheezes, rales, rhonchi, stridor Cardiovascular Exam: Present: regular rate, normal rhythm, normal heart sounds. Absent: systolic murmur, diastolic murmur, rubs, gallop, clicks GI/Abdominal exam: Present: soft, normal bowel sounds. Absent: distended, tenderness, guarding, rebound, rigid Extremities exam: Present: normal inspection, full ROM, normal capillary refill. Absent: tenderness, pedal edema, joint swelling, calf tenderness Back exam: Present: normal inspection Neurological exam: Present: alert, oriented X3, CN II-XII intact Psychiatric exam: Present: normal affect, normal mood Skin exam: Present: warm, dry, intact, normal color. Absent: rash <Almita Watkins Shiomn - Last Filed: 08/29/23 07:31> Course Vital Signs 08/20/23 08/20/23 08/20/23 06:03 06:10 07:20 Temperature 98.3 F Pulse Rate 79 76 Respiratory 16 20 Rate Blood Pressure 114/85 124/92 114/83 O2 Sat by Pulse 97 99 Oximetry 08/20/23 08/20/23 09:00 10:28 Temperature Pulse Rate 80 78 Respiratory 16 20 Rate Blood Pressure 110/60 110/60 O2 Sat by Pulse 98 98 Oximetry Medical Decision Making - Lab Data Result diagrams: 08/20/23 06:13 08/20/23 06:13 <Power Toth - Last Filed: 08/20/23 10:29> - Lab Data Result diagrams: 08/20/23 06:13 08/20/23 06:13 <RolandAlmita - Last Filed: 08/29/23 07:31> - Medical Decision Making Was patient admitted / discharged? Hospital course, mention meds given and route, prescriptions, significant lab abnormalities, going to OR and other pertinent info. @ -Patient was signed out to me at [address] Watkins. Patient's D-dimer came back elevated. I spoke with her QUALITY ASSURANCE MONITOR CHASSIS and in consultation with her it was de termined that the patient should indeed get a CT scan to rule out PE and aortic dissection. It was done with the patient's understanding that there is some small risk doing radiological studies when . CT scan was interpreted by myself I saw no pulmonary embolism no aortic dissection. At this point in time because of the new T waves in the EKG. I recommended the patient stay and get a repeat troponin and be evaluated by cardiology patient refused and she signed out AMA understanding the risks. @ -No Drug Therapy requiring intensive monitoring for toxicity (Heparin, Nitro, Insulin, Cardizem)? @ -No Were any procedures done? @ -No Diagnosis/symptom? @ -Upper back pain Acute, or Chronic, or Acute on Chronic? @ -Acute Uncomplicated (without systemic symptoms) or Complicated (systemic symptoms)? @ -Complicated Side effects of treatment? @ -No Exacerbation, Progression, or Severe Exacerbation? @ -No Poses a threat to life or bodily function? How? (Chest pain, USA, DC, pneumonia, PE, COPD, DKA, ARF, appy, cholecystitis, CVA, Diverticulitis, Homicidal, Suicidal, threat to staff... and all critical care pts) @ -Yes because of EKG changes in the back pain patient could have a cardiac issue and this could be because of a cardiac issue and this can lead to morbidity or mortality. (Power Toth) Was pt. sent in by a medical professional or institution (, CALLIE, PAID SEARCH ANALYST, urgent care, hospital, or fpc...) When possible be specific @ -No Did you speak to anyone other than the patient for history (EMS, parent, family, police, friend...)? What history was obtained from this source @ -EMS Did you review nursing and triage notes (agree or disagree)? Why? @ -I reviewed and agree with nursing and triage notes Were old charts reviewed (outside hosp., previous admission, EMS record, old EKG, old radiological studies, urgent care reports/EKG's, fpc records)? Report findings @ -No old charts were reviewed Differential Diagnosis (chest pain, altered mental status, abdominal pain women, abdominal pain men, vaginal bleeding, weakness, fever, dyspnea, syncope, headache, dizziness, GI bleed, back pain, seizure, CVA, palpatations, mental health, musculoskeletal)? @ -Differential Chest Pain: Stable Angina, Unstable Angina, STEMI, NSTEMI Aortic Dissection, Pneumothorax, Musculoskeletal, Esophageal Spasm GERD, Cholecystitis, Pancreatitis, Zoster, this is not meant to be an all-inclusive list. EKG interpreted by me (3pts min.). @ -Yes and demonstrates sinus rhythm with a rate of 72. OK interval 167. QRS 87. QTc of 419. No acute ST segment elevations or depressions X-rays interpreted by me (1pt min.). @ -Yes and demonstrates no acute process CT interpreted by me (1pt min.). @ -None done U/S interpreted by me (1pt. min.). @ -Yes and demonstrates positive heart movement What testing was considered but not performed or refused? (CT, X-rays, U/S, labs)? Why? @ -None What meds were considered but not given or refused? Why? @ -Morphine, patient refused Did you discuss the management of the patient with other professionals (professionals i.e. , PA, PAID SEARCH ANALYST, lab, RT, psych nurse, social service technician, director instructional material, teacher, financial aids officer, case preparer and liner)? Give summary @ -No Was smoking cessation discussed for >3mins.? @ -No Was critical care preformed (if so, how long)? @ -No Were there social determinants of health that impacted care today? How? (Homelessness, low income, unemployed, alcoholism, drug addiction, trans portation, low edu. Level, literacy, decrease access to med. care, mcc, rehab)? @ -No Was there de-escalation of care discussed even if they declined (Discuss DNR or withdrawal of care, Hospice)? DNR status @ -No What co-morbidities impacted this encounter? (DM, HTN, Smoking, COPD, CAD, Cancer, CVA, ARF, Chemo, Hep., AIDS, mental health diagnosis, sleep apnea, morbid obesity)? @ -PE on Lovenox Was patient admitted / discharged? Hospital course, mention meds given and route, prescriptions, significant lab abnormalities, going to OR and other pertinent info. @ -Upon arrival patient was placed into room 7. Thorough history and physical exam was performed. 12 EKG is performed. Laboratory studies are conducted. Patient is offered pain medications however she will only except Tylenol. Bedside ultrasound is performed and does demonstrate heart tones and movements. IV is established and laboratory studies are conducted. They are pending at this time. Patient will be signed out to Dr. Toth Undiagnosed new problem with uncertain prognosis? @ -Yes Drug Therapy requiring intensive monitoring for toxicity (Heparin, Nitro, Insulin, Cardizem)? @ -No Were any procedures done? @ -No Diagnosis/symptom? @ -Acute scapular back pain Acute, or Chronic, or Acute on Chronic? @ -Acute Uncomplicated (without systemic symptoms) or Complicated (systemic symptoms)? @ -Complicated Side effects of treatment? @ -No Exacerbation, Progression, or Severe Exacerbation? @ -No Poses a threat to life or bodily function? How? (Chest pain, USA, DC, pneumonia, PE, COPD, DKA, ARF, appy, cholecystitis, CVA, Diverticulitis, Homicidal, Suicidal, threat to staff... and all critical care pts) @ -Possibly as patient is suffering from chest pain (Almita Watkins) - Lab Data Lab Results 08/20/23 08/20/23 08/20/23 Range/Units 06:13 06:13 06:13 WBC 7.4 (3.8-10.6) k/uL RBC 4.37 (3.80-5.40) m/uL Hgb 12.6 (11.4-16.0) gm/dL Hct 35.1 (34.0-46.0) % MCV 80.3 (80.0-100.0) fL MCH 28.9 (25.0-35.0) pg MCHC 36.0 (31.0-37.0) g/dL RDW 13.5 (11.5-15.5) % Plt Count 230 (150-450) k/uL MPV 8.2 Neutrophils % 63 % Lymphocytes % 29 % Monocytes % 4 % Eosinophils % 2 % Basophils % 0 % Neutrophils # 4.6 (1.3-7.7) k/uL Lymphocytes # 2.1 (1.0-4.8) k/uL Monocytes # 0.3 (0-1.0) k/uL Eosinophils # 0.2 (0-0.7) k/uL Basophils # 0.0 (0-0.2) k/uL Hyperchromasia Slight Poikilocytosis Slight PT 10.1 (10.0-12.5) sec INR 0.9 (<1.2) APTT 26.1 (22.0-30.0) sec D-Dimer 1.14 H (<0.60) mg/L FEU Sodium 135 L (137-145) mmol/L Potassium 3.3 L (3.5-5.1) mmol/L Chloride 112 H (98-107) mmol/L Carbon Dioxide 15 L (22-30) mmol/L Anion Gap 8 mmol/L BUN 4 L (7-17) mg/dL Creatinine 0.32 L (0.52-1.04) mg/dL Est GFR (CKD-EPI)AfAm >90 (>60 ml/min/1.73 sqM) Est GFR (CKD-EPI)NonAf >90 (>60 ml/min/1.73 sqM) Glucose 79 (74-99) mg/dL Calcium 8.2 L (8.4-10.2) mg/dL Magnesium 1.6 (1.6-2.3) mg/dL Total Bilirubin 1.1 (0.2-1.3) mg/dL AST 23 (14-36) U/L ALT 17 (4-34) U/L Alkaline Phosphatase 126 (38-126) U/L Troponin I (0.000-0.034) ng/mL NT-Pro-B Natriuret Pep <20 pg/mL Total Protein 6.2 L (6.3-8.2) g/dL Albumin 3.3 L (3.5-5.0) g/dL Urine Color Urine Appearance (Clear) Urine pH (5.0-8.0) Ur Specific [place] (1.001-1.035) Urine Protein (Negative) Urine Glucose (UA) (Negative) Urine Ketones (Negative) Urine Blood (Negative) Urine Nitrite (Negative) Urine Bilirubin (Negative) Urine Urobilinogen (<2.0) mg/dL Ur Leukocyte Esterase (Negative) Urine RBC (0-5) /hpf Urine WBC (0-5) /hpf Ur Squamous Epith Cells (0-4) /hpf Urine Bacteria (None) /hpf Urine Mucus (None) /hpf 08/20/23 08/20/23 Range/Units 06:13 08:44 WBC (3.8-10.6) k/uL RBC (3.80-5.40) m/uL Hgb (11.4-16.0) gm/dL Hct (34.0-46.0) % MCV (80.0-100.0) fL MCH (25.0-35.0) pg MCHC (31.0-37.0) g/dL RDW (11.5-15.5) % Plt Count (150-450) k/uL MPV Neutrophils % % Lymphocytes % % Monocytes % % Eosinophils % % Basophils % % Neutrophils # (1.3-7.7) k/uL Lymphocytes # (1.0-4.8) k/uL Monocytes # (0-1.0) k/uL Eosinophils # (0-0.7) k/uL Basophils # (0-0.2) k/uL Hyperchromasia Poikilocytosis PT (10.0-12.5) sec INR (<1.2) APTT (22.0-30.0) sec D-Dimer (<0.60) mg/L FEU Sodium (137-145) mmol/L Potassium (3.5-5.1) mmol/L Chloride (98-107) mmol/L Carbon Dioxide (22-30) mmol/L Anion Gap mmol/L BUN (7-17) mg/dL Creatinine (0.52-1.04) mg/dL Est GFR (CKD-EPI)AfAm (>60 ml/min/1.73 sqM) Est GFR (CKD-EPI)NonAf (>60 ml/min/1.73 sqM) Glucose (74-99) mg/dL Calcium (8.4-10.2) mg/dL Magnesium (1.6-2.3) mg/dL Total Bilirubin (0.2-1.3) mg/dL AST (14-36) U/L ALT (4-34) U/L Alkaline Phosphatase (38-126) U/L Troponin I 0.013 (0.000-0.034) ng/mL NT-Pro-B Natriuret Pep pg/mL Total Protein (6.3-8.2) g/dL Albumin (3.5-5.0) g/dL Urine Color Colorless Urine Appearance Clear (Clear) Urine pH 6.0 (5.0-8.0) Ur Specific [place] 1.005 (1.001-1.035) Urine Protein Negative (Negative) Urine Glucose (UA) Negative (Negative) Urine Ketones Negative (Negative) Urine Blood Negative (Negative) Urine Nitrite Negative (Negative) Urine Bilirubin Negative (Negative) Urine Urobilinogen <2.0 (<2.0) mg/dL Ur Leukocyte Esterase Small H (Negative) Urine RBC 1 (0-5) /hpf Urine WBC 1 (0-5) /hpf Ur Squamous Epith Cells 3 (0-4) /hpf Urine Bacteria Rare H (None) /hpf Urine Mucus Rare H (None) /hpf Disposition Is patient prescribed a controlled substance at d/c from ED?: No Time of Disposition: 10:33 <Power Toth - Last Filed: 08/20/23 10:29> <Almita Watkins - Last Filed: 08/29/23 07:31> Clinical Impression: Upper back pain Disposition: LEFT AGAINST MEDICAL ADVICE Additional Instructions: Patient should return if there is new symptoms or worsening of her symptoms. Referrals: None,Stated [Primary Care Provider] - 1-2 days
[2023-08-20 06:40] LABS: NT-Pro-B-Type Natriuretic Pept <20 pg/mL
[2023-08-20] MEDS ORDERED: ACETAMINOPHEN TAB 500 MG TAB PO STA (06:47)
[2023-08-20 07:06] LABS: INR 0.9 (<1.2); Partial Thromboplastin Time 26.1 sec (22.0-30.0); Prothrombin Time 10.1 sec (10.0-12.5)
--- NOTE | 2023-08-20 07:13 | XR ---
EXAMINATION TYPE: XR chest 2V DATE OF EXAM: 08/20/2023 6:31 AM CLINICAL INDICATION:Female, 23 years old with history of Chest Pain; [facility] COMPARISON: Chest radiographs from 12/26/2022 TECHNIQUE: XR chest 2V Frontal and lateral views of the chest. FINDINGS: Lungs/Pleura: There is no evidence of pleural effusion, focal consolidation, or pneumothorax. Pulmonary vascularity: Unremarkable. Heart/mediastinum: Cardiomediastinal silhouette is unremarkable. Musculoskeletal: No acute osseous pathology. Other findings: None IMPRESSION: No acute cardiopulmonary disease/process.
[2023-08-20 09:02] LABS: Appearance,Urine Clear (Clear); Bacteria,Urine Rare /hpf; Bilirubin,Urine Negative (Negative); Blood,Urine Negative (Negative); Color,Urine Colorless; Glucose,Urine (UA) Negative (Negative); Ketones,Urine Negative (Negative); Leukocyte Esterase,Urine Small (Negative); Mucus,Urine Rare /hpf; Nitrite,Urine Negative (Negative); Protein,Urine Negative (Negative); RBC,Urine 1 /hpf (0-5); Specific Gravity,Urine 1.005 (1.001-1.035); Squamous Epithelial Cell,Urine 3 /hpf (0-4); Urobilinogen,Urine <2.0 mg/dL (<2.0); WBC,Urine 1 /hpf (0-5)
--- NOTE | 2023-08-20 09:56 | CT ---
CT CHEST FOR PULMONARY EMBOLISM. EXAMINATION TYPE: CT chest angio for PE DATE OF EXAM: 08/20/2023 INDICATION: Back pain history of thrombus, elevated d-dimer CT DLP: 187.9 mGycm, Automated exposure control for dose reduction was used. CONTRAST: Patient injected with 100 mL of Isovue 370. COMPARISON: None TECHNIQUE: CT of the chest is performed on a spiral scan at 2 mm thick sections. Study is performed with intravenous contrast timed for evaluation for pulmonary embolism. This will limit additional po rtions of the evaluation. Patient was advised of risks. FINDINGS: No persistent filling defects are evident to suggest an acute pulmonary embolism. No mediastinal or hilar adenopathy enlarged by CT criteria is evident. Couple of small left axillary lymph nodes are present The ascending aorta diameter at the level of the main pulmonary artery is 2.9 cm. The main pulmonary artery diameter at the bifurcation is 2.5 cm. No aortic dissection is evident. Lung windows are clear. Limited CT section through the upper abdomen are unremarkable. There is a small hiatal hernia present . IMPRESSION: 1. No acute pulmonary embolism. 2. No aortic dissection. 3. No acute pulmonary process.
[2023-08-20 09:58] VITALS: BP 110/60
[2023-08-20 10:48] VITALS: PULSE 78; RESP 20
== END 2023-08-20 10:29 | disposition left against medical advice (07) ==
LOC: EC 05:59
DX: M54.6 Pain in thoracic spine (principal); F17.290 Nicotine dependence, other tobacco product, uncomplicated; I25.2 Old myocardial infarction; Z88.8 Allergy status to other drugs, medicaments and biological substances
CPT/HCPCS: 99284; 36415; 93005; 85379; 83880; 80053; 83735; 84484; 85025; 85610; 85730; 81001; 71046; 71275; 96360; Q9967

== ENCOUNTER 2023-09-13 13:25 | Outpatient (CLI) | payer OTHER ==
[2023-09-13 14:36] VITALS: BP 123/81; PULSE 93; RESP 16; TEMP 97.2
== END 2023-09-13 14:29 | disposition home or self-care (01) ==
LOC: FBPOP 13:25
PROVIDERS: ATTEND Obstetrics & Gynecology
DX: O36.5930 Maternal care for other known or suspected poor fetal growth, third trimester, not applicable or unspecified (principal); Z3A.33 33 weeks gestation of pregnancy
CPT/HCPCS: 59025; G0463; 99213

== ENCOUNTER 2023-10-20 05:50 | Inpatient (IN) | payer OTHER ==
[2023-10-20] MEDS ORDERED: OXYTOCIN 10 UNIT/ML 1 ML VIAL IM PRN (06:14)
[2023-10-20] MEDS ORDERED: CARBOPROST TROMETHAMINE 250 MCG/ML 1 ML AMP IM PRN (06:14)
[2023-10-20] MEDS ORDERED: miSOPROStoL 200 MCG TAB PO PRN (06:14)
[2023-10-20] MEDS ORDERED: TRANEXAMIC 1,000 MG/100ML-NACL 1,000 MG in EMPTY BAG 1 BAG IV PRN (06:14)
[2023-10-20] MEDS ORDERED: TERBUTALINE 1 MG/ML VIAL SQ PRN (06:14)
[2023-10-20] MEDS ORDERED: METHYLERGONOVINE 0.2 MG/ML 1 ML AMP IM PRN (06:14)
[2023-10-20] MEDS: LACTATED RINGERS 1,000 ML IV SCH (06:26)
[2023-10-20 06:44] LABS: Basophils % (A) 0 %; Eosinophils # (A) 0.1 k/uL (0-0.7); Eosinophils % (A) 2 %; HCT 34.3 % (34.0-46.0); HGB 11.3 gm/dL (11.4-16.0); Lymphocytes # (A) 2.3 k/uL (1.0-4.8); Lymphocytes % (A) 29 %; MCH 24.9 pg (25.0-35.0); MCHC 32.9 g/dL (31.0-37.0); MCV 75.8 fL (80.0-100.0); Mean Platelet Volume 9.8; Microcytosis Slight; Monocytes # (A) 0.4 k/uL (0-1.0); Monocytes % (A) 5 %; Neutrophils # (A) 4.8 k/uL (1.3-7.7); Neutrophils % (A) 62 %; Platelet Count 230 k/uL (150-450); Poikilocytosis Slight; RBC 4.53 m/uL (3.80-5.40); RDW 14.2 % (11.5-15.5); WBC 7.8 k/uL (3.8-10.6)
[2023-10-20] MEDS: OXYTOCIN 30 UNITS/500 ML NS 30 UNIT in SALINE 1 500ML.BAG IV SCH (06:47)
[2023-10-20 08:14] LABS: INR 0.9 (<1.2); Prothrombin Time 10.2 sec (10.0-12.5)
[2023-10-20] MEDS: NALBUPHINE 10 MG/ML (10 ML MDV) IV PRN (08:46)
--- NOTE | 2023-10-20 09:28 | P.HPOB ---
History of Present Illness H&P Date: 10/20/23 Chief Complaint: Medical induction of labor Ms. Ladd is a 23 year old at 39 weeks and 0 days with EDC of 10/27/2023 by 7 week US who presents for medical induction of labor for IUGR 7%ile. The patient has been undergoing surveillance with twice weekly NSTs and weekly BPPs/cord dopplers by US which have all been reassuring. The is also complicated by maternal history of unprovoked PE in 2020 for which the patient states a thrombophilia work-up was negative. The patient also reports a history of TIAs during the PE event, but she states she never followed up with neurology. The patient took lovenox 40mg throughout the which was transitioned to Heparin 10,000 units BID at 36 weeks. Her last dose of Heparin was 2 days ago, per the patient. Given all these complications, the patient was referred to Maternal Medicine during the however she was non- compliant with this recommendation. work-up: blood type A positive, antibody negative, rubella NON-IMMUNE, VDRL non-reactive, HBsAg negative, HIV negative, HCV Ab negative, gonorrhea negative, chlamydia negative, 1 hour GTT within normal limits, GBS negative. s/p flu vaccine. Past Medical History Past Medical History: CVA/TIA, Pulmonary Embolus (PE) History of Any Multi-Drug Resistant Organisms: None Reported Past Surgical History: No Surgical Hx Reported Additional Past Surgical History / Comment(s): JOSUE after she had her TIAs adn PE Past Anesthesia/Blood Transfusion Reactions: No Reported Reaction Past Psychological History: No Psychological Hx Reported Smoking Status: Vaper Past Alcohol Use History: None Reported Past Drug Use History: None Reported Medications and Allergies Home Medications Medication Instructions Recorded Confirmed Type Zyf-Iewt-Yygvx Acid 1 each PO DAILY #30 cap 03/04/23 10/20/23 Rx [-U Capsule] Enoxaparin [Lovenox] 40 mg SQ DAILY 09/13/23 10/20/23 History RX: Heparin Sodium,Porcine 1 injection SQ BID 10/20/23 10/20/23 History [Heparin Sodium] Allergies Allergy/AdvReac Type Severity Reaction Status Date / Time cat dander Allergy Rash/Hives Verified 09/13/23 13:40 cat's claw Allergy Swelling Verified 09/13/23 13:40 dust Allergy Wheezing Uncoded 09/13/23 13:40 Exam Vital Signs Temp Pulse Resp BP Pulse Ox 10/20/23 06:08 97.5 F L 82 16 129/80 99 Intake and Output 10/19/23 10/20/23 10/20/23 22:59 06:59 14:59 Other: Weight 54.885 kg Focused physical exam is performed. This is a healthy-appearing in no apparent distress. Breathing is non-labored. Abdomen is gravid and non-tender. Cervical exam is fingertip/long/high. Speculum is used to insert a cooks catheter. 60cc are inserted into each balloon. The patient tolerated this procedure well. Extremities non-tender and non-edematous. heart tones are Category I and tocometer is graphing contractions every 2-5 minutes. Results Result Diagrams: 10/20/23 06:27 Abnormal Lab Results - Last 24 Hours (Table) 10/20/23 Range/Units 06:27 Hgb 11.3 L (11.4-16.0) gm/dL MCV 75.8 L (80.0-100.0) fL MCH 24.9 L (25.0-35.0) pg Assessment and Plan Assessment: 23 year old at 39 weeks here for medical induction of labor for IUGR 7%ile with reassuring testing and anticoagulation 2/2 history of unprovoked PE in 2020 Plan: Admit, clear liquids, cooks catheter in place with low-dose oxytocin for 6-12 hours, IV nubain 5mg q4h prn while cooks in place, epidural prn after cooks removed. Continuous EFM and tocometer. Close monitoring of patient. Time with Patient: Less than 30
[2023-10-20] MEDS: LIDOCAINE 0.5% (PF) 5 MG/ML (50 ML SDV) SQ PRN (23:52)
[2023-10-21] MEDS ORDERED: diphenhydrAMINE 50 MG/ML 1 ML VIAL IVP PRN ×2 (00:39)
[2023-10-21] MEDS ORDERED: diphenhydrAMINE 50 MG CAP PO PRN (00:39)
[2023-10-21] MEDS ORDERED: BENZOCAINE/MENTHOL SPRAY 1 GM/SPRAY AEROSOL TOPICAL PRN (00:39)
[2023-10-21] MEDS ORDERED: LANOLIN CREAM 1 GM TUBE TOPICAL PRN (00:39)
[2023-10-21] MEDS ORDERED: SIMETHICONE 80 MG CHEWABLE PO PRN (00:39)
[2023-10-21] MEDS ORDERED: HYDROCORTISONE 2.5% RECTAL CREAM 30 GM TUBE RECTAL PRN (00:39)
[2023-10-21] MEDS ORDERED: ZOLPIDEM 5 MG TAB PO PRN (00:39)
[2023-10-21] MEDS ORDERED: diphenhydrAMINE 25 MG CAP PO PRN (00:39)
--- NOTE | 2023-10-21 00:39 | P.PROBDLV ---
Vaginal Delivery Note - . Vaginal Delivery Note: DATE OF SERVICE: 10/21/2023 PROCEDURE: Vacuum Assisted Vaginal Delivery ATTENDING: Dr. Kena Bahena MD ESTIMATED BLOOD LOSS: 100 mL FINDINGS: VMI, Apgars 8/9. Weight 5 pounds and 13 ounces (2655 grams) PROCEDURE: Ms. Ladd is a 23 year old at 39 weeks presenting to labor and delivery for medical induction of labor. The has been complicated by intrauterine growth restriction for which the patient has had reassuring testing. The patient also has a history of an unprovoked pulmonary embolism and transient ischemic attacks. Due to this history, the patient took prophlyactic lovenox throughout the and was transitioned to prophylactic heparin at 36 weeks. For further details, please review the admitting H&P. A cooks catheter was placed with low dose oxytocin. After the cooks catheter was removed, AROM was undertaken at 1455 revealing clear amniotic fluid. Pitocin was then titrated per protocol. The patient received epidural anesthesia per her request. The patient had intermittently Category II heart tones throughout the first stage that resolved with position changes and IV fluids. The patient was completely dilated at 2324. The patient pushed effectively, however, the heart tracing showed decelerations into the 80s with poor recovery in between contractions and vacuum assisted vaginal delivery was recommended to the patient. The baby's head was confirmed to be in occiput anterior presentation and +3 station. The vacuum was placed and the correct placement in front of the posterior fontanelle was confirmed digitally. Over the next few contractions, the vacuum was inflated and a gentle downward pressure was used to assist with brining the baby's head to a +4 station. The vacuum was then removed. The head was delivered without difficulty over an intact perineum. There was no nuchal cord. Shoulders followed by body were delivered without difficulty. The baby's mouth and nose were bulb suctioned. The cord was clamped x2 and cut. The infant was taken to the warmer. Oxytocin was started to facilitate uterine tone. Uterine fundus was found to be firm and below the umbilicus upon fundal massage. Thorough examination of the cervix, vagina, periurethral area, and perineum revealed bilateral periurethral abrasions and a left lateral second degree laceration repaired with 2-0 and 3-0 Vicryl in the usual fashion. The patient is stable and allowed to begin the bonding process.
[2023-10-21] MEDS: IBUPROFEN 600 MG TAB PO PRN (00:47)
[2023-10-21] MEDS: ACETAMINOPHEN TAB 325 MG TAB PO PRN (04:16)
[2023-10-21] MEDS: SENNOSIDES-DOCUSATE SODIUM 1 EACH TAB PO SCH (09:15)
--- NOTE | 2023-10-21 11:01 | P.PNOBGVD ---
Subjective - Subjective Patient reports: Reports appetite normal, Reports voiding normally, Reports pain well controlled, Reports ambulating normally : doing well Objective - Latest Vital Signs Latest vital signs: Vital Signs Temp Pulse Resp BP Pulse Ox 10/21/23 08:29 97.8 F 89 18 106/73 99 10/21/23 04:28 97.6 F 91 16 104/68 10/21/23 02:28 97.8 F 92 16 107/63 10/21/23 02:13 82 16 113/64 10/21/23 01:58 102 H 16 110/68 10/21/23 01:43 80 16 108/71 10/21/23 01:28 96 16 106/70 10/21/23 01:13 93 16 112/67 10/21/23 00:58 100 16 121/72 10/21/23 00:43 93 16 117/72 10/21/23 00:28 98.7 F 81 16 125/81 99 Intake and Output 10/20/23 10/21/23 10/21/23 22:59 06:59 14:59 Output Total 300 208 Balance -300 -208 Output: Urine 300 Estimated Blood Loss 100 Output, Quantitative 108 Blood Loss Other: # Voids 1 - Exam Extremities: Present: normal Abdomen: Present: normal appearance, soft Uterus: Present: normal, firm (The uterine fundus is tonic and minimally tender below the umbilicus.) Assessment and Plan (1) Status post normal vaginal delivery Current Visit: Yes Status: Acute Code(s): [id number] - SNOMED Code(s): 213869428 Plan: Continue routine care. I would anticipate discharge home tomorrow pending no complications.
[2023-10-22 08:48] LABS: Basophils % (A) 0 %; Eosinophils # (A) 0.2 k/uL (0-0.7); Eosinophils % (A) 1 %; HCT 27.6 % (34.0-46.0); Lymphocytes # (A) 1.9 k/uL (1.0-4.8); Lymphocytes % (A) 17 %; MCH 25.9 pg (25.0-35.0); MCHC 33.8 g/dL (31.0-37.0); MCV 76.4 fL (80.0-100.0); Mean Platelet Volume 9.5; Monocytes # (A) 0.4 k/uL (0-1.0); Monocytes % (A) 3 %; Neutrophils # (A) 8.3 k/uL (1.3-7.7); Neutrophils % (A) 77 %; Platelet Count 212 k/uL (150-450); Poikilocytosis Slight; RBC 3.61 m/uL (3.80-5.40); RDW 14.5 % (11.5-15.5); WBC 10.8 k/uL (3.8-10.6)
--- NOTE | 2023-10-22 08:54 | P.DS ---
Providers Date of admission: 10/20/23 05:50 Expected date of discharge: 10/22/23 Attending physician: Kena Bahena MD Primary care physician: Stated None - Discharge Diagnosis(es) (1) Status post normal vaginal delivery Current Visit: Yes Status: Acute Hospital Course: The patient is a 23-year-old 1 para 0 admitted at 39-0/7 weeks by connor thomas. She is admitted for induction of labor secondary to intrauterine growth restriction. surveillance was reassuring twice- weekly with weekly biophysical profiles and fluid checks which have all been reassuring. Patient also has a history of an unprovoked pulmonary embolism in 2020 with a negative workup. She has been on Lovenox throughout the and was ultimately transitioned to heparin at 36 weeks. On labor and delivery, she had a Cook's catheter placed for cervical dilation and then she had Pitocin started followed by artificial rupture of membranes for clear fluid. She had an epidural catheter placed for analgesia. She ultimately progressed to complete and pushed but was having deep decelerations with poor recovery between contractions at a very low station. Mighty VAC vacuum extraction was carried out in uncomplicated fashion. Her course was unremarkable with vital signs remaining stable and her temperature was afebrile throughout. She was deemed stable for discharge on day #2 and was discharged home to follow-up in the office in 6 weeks time routinely. Discharge instructions included calling for any significantly increased bleeding or foul-smelling lochia, significantly increased fever or abdominal pain, perineal complaints, breast complaints, or anything else that concerned her. She was additionally instructed to have nothing in the vagina for at least 6 weeks time to include intercourse. She understood her instructions and agrees to follow-up as noted above. Discharge medications included continued vitamins as well as gkpz-ygn-[id number] analgesic pain medications as needed. Maternal blood type is a positive and rubella status is nonimmune. She therefore was to receive the MMR vaccination prior to discharge. Procedures: #1. Cook's catheter ripening #2. Pitocin induction #3. Artificial rupture of membranes #4. Epidural analgesia #5. Vacuum extraction Patient Condition at Discharge: Stable Plan - Discharge Summary New Discharge Prescriptions: No Action Scd-Ycfz-Uxzic Acid [-U Capsule] 1 each PO DAILY #30 cap Enoxaparin [Lovenox] 40 mg SQ DAILY Heparin Sodium,Porcine [Heparin Sodium] 1 injection SQ BID Discharge Medication List Ehl-Acey-Cvhba Acid [-U Capsule] 1 each PO DAILY #30 cap 03/04/23 [Rx] Enoxaparin [Lovenox] 40 mg SQ DAILY 09/13/23 [History] Heparin Sodium,Porcine [Heparin Sodium] 1 injection SQ BID 10/20/23 [History] Follow up Appointment(s)/Referral(s): Kena Bahena MD [STAFF PHYSICIAN] - 6 Weeks Discharge Disposition: HOME SELF-CARE
[2023-10-22 09:22] LABS: HGB 9.3 gm/dL (11.4-16.0)
[2023-10-22] MEDS: MEASLES-MUMPS-RUBELLA VACC/PF 12,500 UNIT/0.5 ML VIAL SQ ONE (11:01)
[2023-10-22 16:04] VITALS: BP 120/81; PULSE 105; RESP 17; TEMP 98.5
== END 2023-10-22 17:18 | disposition home or self-care (01) | DRG 560 ==
LOC: 4FBP 05:50
PROVIDERS: ADMIT Obstetrics & Gynecology; ATTEND Obstetrics & Gynecology
PROC: 0KQM0ZZ Repair Perineum Muscle, Open Approach (ICD-10-PCS; principal; 2023-10-21)
PROC: 10907ZC Drainage of Amniotic Fluid, Therapeutic from Products of Conception, Via Natural or Artificial Opening (ICD-10-PCS; principal; 2023-10-21)
PROC: 10D07Z6 Extraction of Products of Conception, Vacuum, Via Natural or Artificial Opening (ICD-10-PCS; principal; 2023-10-21)
PROC: 3E033VJ Introduction of Other Hormone into Peripheral Vein, Percutaneous Approach (ICD-10-PCS; principal; 2023-10-21)
PROC: 0U7C7ZZ Dilation of Cervix, Via Natural or Artificial Opening (ICD-10-PCS; principal; 2023-10-21)
PROC: 0UQMXZZ Repair Vulva, External Approach (ICD-10-PCS; principal; 2023-10-21)
PROC: 3E0134Z Introduction of Serum, Toxoid and Vaccine into Subcutaneous Tissue, Percutaneous Approach (ICD-10-PCS; 2023-10-22)
DX: O36.5930 Maternal care for other known or suspected poor fetal growth, third trimester, not applicable or unspecified (principal); O70.1 Second degree perineal laceration during delivery; O71.82 Other specified trauma to perineum and vulva; O76 Abnormality in fetal heart rate and rhythm complicating labor and delivery; O99.334 Smoking (tobacco) complicating childbirth; F17.290 Nicotine dependence, other tobacco product, uncomplicated; Z86.711 Personal history of pulmonary embolism; Z86.73 Personal history of transient ischemic attack (TIA), and cerebral infarction without residual deficits; Z79.01 Long term (current) use of anticoagulants; Z28.310 Unvaccinated for COVID-19; Z23 Encounter for immunization; Z91.198 Patient's noncompliance with other medical treatment and regimen for other reason; Z3A.39 39 weeks gestation of pregnancy; Z37.0 Single live birth
CPT/HCPCS: 85025; 85610; 85730; 86850; 86900; 86901; 88307; 90471; 90707

== ENCOUNTER 2024-08-12 10:57 | Outpatient (CLI) | payer OTHER ==
[2024-08-12 11:44] LABS: Appearance,Urine Clear (Clear); Bilirubin,Urine Negative (Negative); Blood,Urine Negative (Negative); Color,Urine Yellow; Glucose,Urine (UA) Negative (Negative); Hyaline Casts,Urine 1 /lpf (0-2); Ketones,Urine 3+ (Negative); Leukocyte Esterase,Urine Small (Negative); Mucus,Urine Moderate /hpf; Nitrite,Urine Negative (Negative); Protein,Urine Trace (Negative); Specific Gravity,Urine 1.027 (1.001-1.035); Squamous Epithelial Cell,Urine 1 /hpf (0-4); WBC,Urine 5 /hpf (0-5)
[2024-08-12] MEDS: LACTATED RINGERS 1,000 ML BAG IV STA (11:50)
[2024-08-12] MEDS: ONDANSETRON 4 MG/2 ML VIAL IVP STA (12:00)
[2024-08-12] MEDS: FAMOTIDINE 20 MG/2 ML VIAL IV STA (12:00)
[2024-08-12] MEDS: ACETAMINOPHEN IV (For NPO) 1,000 MG in EMPTY BAG 1 BAG IVPB STA (12:01)
[2024-08-12 12:13] LABS: Anisocytosis Slight; Basophils % (A) 0 %; Eosinophils # (A) 0.2 k/uL (0-0.7); Eosinophils % (A) 3 %; HCT 27.9 % (34.0-46.0); HGB 9.4 gm/dL (11.4-16.0); Hypochromasia Slight; Lymphocytes # (A) 0.8 k/uL (1.0-4.8); Lymphocytes % (A) 11 %; MCH 24.1 pg (25.0-35.0); MCHC 33.5 g/dL (31.0-37.0); MCV 71.8 fL (80.0-100.0); Mean Platelet Volume 7.8; Microcytosis Moderate; Monocytes # (A) 0.3 k/uL (0-1.0); Monocytes % (A) 4 %; Neutrophils # (A) 5.5 k/uL (1.3-7.7); Neutrophils % (A) 81 %; Platelet Count 217 k/uL (150-450); Poikilocytosis Slight; RBC 3.89 m/uL (3.80-5.40); RDW 16.4 % (11.5-15.5); WBC 6.8 k/uL (3.8-10.6)
[2024-08-12 12:35] LABS: African American GFR (CKD) >90 (>60 ml/min/1.73 sqM); Anion Gap 10 mmol/L; Blood Urea Nitrogen 6 mg/dL (7-17); Calcium 8.1 mg/dL (8.4-10.2); Carbon Dioxide 14 mmol/L (22-30); Chloride 107 mmol/L (98-107); Glucose 68 mg/dL (74-99); Non-African American GFR(CKD) >90 (>60 ml/min/1.73 sqM); Potassium 3.6 mmol/L (3.5-5.1); Sodium 131 mmol/L (137-145)
--- NOTE | 2024-08-12 12:44 | XR ---
EXAMINATION TYPE: XR chest 2V DATE OF EXAM: 08/12/2024 12:38 PM COMPARISON: 08/20/2023 CLINICAL INDICATION: Female, 24 years old with history of chest pain, coughing, TECHNIQUE: XR chest 2V view(s) obtained. FINDINGS: The heart size is normal. The pulmonary vasculature is normal. Linear opacity along the minor fissure on the right may be some minimal atelectasis. Lung fink othe rwise appear clear. IMPRESSION: 1. Minimal atelectasis right midlung [facility], , 08/12/2024 12:41 PM
[2024-08-12 12:49] LABS: Influenza A Detected (Not Detectd); Influenza B Not Detected (Not Detectd); RSV Not Detected (Not Detectd)
[2024-08-12] MEDS: DEXTROSE 5%-LACTATED RINGERS 1,000 ML IV ONE (12:58)
[2024-08-12 14:47] VITALS: BP 112/60; PULSE 114; RESP 17; TEMP 100.2
--- NOTE | 2024-08-28 15:56 | P.MSEPDOC ---
Presenting Problems - Arrival Data Date of Arrival on Unit: 08/12/24 Time of Arrival on Unit: 10:57 Mode of Transport: EMS - Complaint OB-Reason for Admission/Chief Complaint: Acute Nausea/Vomiting, Pain Comment: Pt presents to triage by EMS via stretcher, c/o n/v for 2 days, unable to keep anything down, chills, cough and runny nose for the last 2 days as well and constant lower back and abd pain Medical History - Information : 2 Para: 1 Term: 0 : 1 Abortions: Spontaneous or Elective: 0 Number of Living Children: 1 - Gestational Age Gestational Age by SALLY (wks/days): 30 Weeks and 4 Days - History Complications: Prior Review of Systems - Review of Systems Constitutional: No problems Breast: No problems ENT: No problems Cardiovascular: No problems Respiratory: No problems Gastrointestinal: No problems Genitourinary: No problems Musculoskeletal: No problems Neurological: No problems Skin: No problems Vital Signs - Temperature Temperature: 100.2 F Temperature Source: Axillary - Pulse Right Brachial Pulse Rate: 114 Pulse Assessment Method: Automatic Cuff - Respirations Respiratory Rate: 17 Oxygen Delivery Method: Room Air - Blood Pressure Right Arm Blood Pressure: 112/60 Blood Pressure Mean: 77 Blood Pressure Source: Automatic Cuff Medical Screen Scoring - Cervical Exam Dilation (cm): 0 - Uterine Contractions Intensity: Mild Resting: Soft to palpation - Assessment - Baby A Baseline FHR: 150 Heart Rate - NICHD Category: Category I (Normal) NST: Reactive Physician Notification - Notification Comment Comment: cbc, bmp, ua, and cephid- 4 plex, cervical exam closed, 2 bags of ivf given, ofirmev, pepcid, zofran, given, cxr performed, swabs negative, pt feeling a little better, today's appt was canceled and pt will call office for next appt, Maternal Triage Index - Maternal Triage Index Presenting for scheduled procedure w/no complaint: No - Stat/Priority 1 Stat Priority 1: No - Urgent/Priority 2 Urgent Priority 2: Yes Provider Notified: Kena Bahena Provider Notified Time: 11:33 Criteria Met for Priority 2: Pt presents to triage by EMS via stretcher, c/o n/v for 2 days, unable to keep anything down, chills, cough and runny nose for the last 2 days as well and constant lower back and abd pain Disposition - Disposition OB Disposition: Triage, Discharge to home, Written follow up instructions reviewed Discharge Date: 08/12/24 Discharge Time: 13:55 I agree with the RN Medical Screening Exam: Yes Physician's MSE Comment: I have neither seen nor examined the patient Case reviewed; plan agreed upon as documented in EMR&OBIX.: Yes Diagnosis: VOMITING OF , UNSPECIFIED
== END 2024-08-12 13:55 | disposition home or self-care (01) ==
LOC: FBPOP 10:57
PROVIDERS: ATTEND Obstetrics & Gynecology
DX: O21.9 Vomiting of pregnancy, unspecified (principal); Z3A.30 30 weeks gestation of pregnancy; Z91.09 Other allergy status, other than to drugs and biological substances; Z91.048 Other nonmedicinal substance allergy status
CPT/HCPCS: 59025; 96361; 96365; 96375; 36415; 80048; 85025; 81001; 87086; 87636; 71046; G0463; J2405; J3490; J0131; 99214

== ENCOUNTER 2024-09-28 06:00 | Inpatient (IN) | payer OTHER ==
[2024-09-28] MEDS ORDERED: CARBOPROST TROMETHAMINE 250 MCG/ML 1 ML AMP IM PRN (06:54)
[2024-09-28] MEDS ORDERED: miSOPROStoL 200 MCG TAB PO PRN (06:54)
[2024-09-28] MEDS ORDERED: TERBUTALINE 1 MG/ML VIAL SQ PRN (06:54)
[2024-09-28] MEDS ORDERED: OXYTOCIN 10 UNIT/ML 1 ML VIAL IM PRN (06:54)
[2024-09-28] MEDS ORDERED: miSOPROStoL 200 MCG TAB RECTAL PRN (06:54)
[2024-09-28] MEDS ORDERED: LIDOCAINE 0.5% (PF) 5 MG/ML (50 ML SDV) SQ PRN (06:54)
[2024-09-28] MEDS ORDERED: METHYLERGONOVINE 0.2 MG/ML 1 ML AMP IM PRN (06:54)
[2024-09-28] MEDS ORDERED: TRANEXAMIC 1,000 MG/100ML-NACL 1,000 MG in EMPTY BAG 1 BAG IV PRN (06:54)
[2024-09-28] MEDS: LACTATED RINGERS 1,000 ML IV SCH (07:11)
[2024-09-28] MEDS: OXYTOCIN 30 UNITS/500 ML NS 30 UNIT in SALINE 1 500ML.BAG IV SCH (07:15)
[2024-09-28 07:17] LABS: Anisocytosis Slight; Basophils % (A) 0 %; Eosinophils # (A) 0.2 k/uL (0-0.7); Eosinophils % (A) 2 %; HCT 34.1 % (34.0-46.0); HGB 10.7 gm/dL (11.4-16.0); Hypochromasia Moderate; Lymphocytes # (A) 2.6 k/uL (1.0-4.8); Lymphocytes % (A) 25 %; MCH 21.9 pg (25.0-35.0); MCHC 31.4 g/dL (31.0-37.0); MCV 69.7 fL (80.0-100.0); Mean Platelet Volume 7.4; Microcytosis Marked; Monocytes # (A) 0.5 k/uL (0-1.0); Monocytes % (A) 5 %; Neutrophils % (A) 67 %; Platelet Count 257 k/uL (150-450); Poikilocytosis Moderate; RBC 4.88 m/uL (3.80-5.40); RDW 16.8 % (11.5-15.5); WBC 10.4 k/uL (3.8-10.6)
--- NOTE | 2024-09-28 10:04 | P.HPOB ---
History of Present Illness H&P Date: 09/28/24 Chief Complaint: Medical induction of labor Ms. Ladd is a 24 year old at 37 weeks and 2 days gestation with EDC of 10/17/24 by early US consistent with LMP who presents for medical inductin of labor for severe IUGR with abdominal circumference <1%ile and EFW 4.5%ile. The patient has not been able to make it to the office for all of the surveillance due to lack of transportation and has also been living in a women's custodial due to housing instability. All in-office surveillance has been reassuring, umbilical artery dopplers have been normal. The patient also has a history of PE and TIA for which she has been on lovenox 40mg daily throughout the . However, she has not been able to obtain her Lovenox for the past few weeks due to lack of transportation. Obstetric history: 1 FTVD, no complications work-up: blood type A positive, antibody screen negative, rubella immune, VDRL non-reactive, HBsAg negative, HIV negative, HCV Ab non-reactive, gonorrhea negative, chlamydia negative, 1 hour GTT wnl, GBS pending (no risk factors for GBS sepsis, per ACOG will not treat unless ruptured >18 hours). Past Medical History Past Medical History: CVA/TIA, Pulmonary Embolus (PE) History of Any Multi-Drug Resistant Organisms: None Reported Past Surgical History: No Surgical Hx Reported Additional Past Surgical History / Comment(s): JOSUE after she had her TIAs and PE Past Anesthesia/Blood Transfusion Reactions: No Reported Reaction Past Psychological History: Anxiety, Depression Smoking Status: Vaper Past Alcohol Use History: None Reported Past Drug Use History: None Reported - Past Family History Mother Family Medical History: Hypertension Medications and Allergies Home Medications Medication Instructions Recorded Confirmed Type Enoxaparin [Lovenox] 0.4 injection SQ DAILY 09/28/24 09/28/24 History Pnv No.154/Iron Fum/Folic Acid 1 tablet PO DAILY 09/28/24 09/28/24 History [ Plus Vitamin Tablet] Allergies Allergy/AdvReac Type Severity Reaction Status Date / Time cat dander Allergy Rash/Hives Verified 08/12/24 11:14 cat's claw Allergy Swelling Verified 08/12/24 11:14 dust Allergy Wheezing Uncoded 08/12/24 11:14 Exam Vital Signs Temp Pulse Resp BP Pulse Ox 09/28/24 07:00 96.4 F L 89 16 139/66 100 Intake and Output 09/27/24 09/28/24 09/28/24 22:59 06:59 14:59 Other: Weight 51.71 kg 51.71 kg Focused physical exam is performed. This is a healthy-appearing in no apparent distress. Breathing is non-labored. Abdomen is gravid and non-tender. Cervical exam is 4/80/-2. AROM is undertaken with clear fluid noted. Extremities non-tender and non-edematous. heart tones are Category I and tocometer is graphing contractions every 2-4 minutes. Results Result Diagrams: 09/28/24 06:59 Abnormal Lab Results - Last 24 Hours (Table) 09/28/24 Range/Units 06:59 Hgb 10.7 L (11.4-16.0) gm/dL MCV 69.7 L (80.0-100.0) fL MCH 21.9 L (25.0-35.0) pg RDW 16.8 H (11.5-15.5) % Assessment and Plan Assessment: 24 year old at 37 weeks and 2 days being induced for severe IUGR Plan: Admit, clear liquid diet, pitocin per protocol, epidural prn, continuous EFM and tocometer, anticipate vaginal delivery.
[2024-09-28] MEDS ORDERED: fentaNYL (PF) 50 MCG/ML 5 ML AMP ONE (10:16)
[2024-09-28] MEDS ORDERED: ROPIVACAINE 5 MG/ML 30 ML VIAL ONE (10:16)
[2024-09-28] MEDS ORDERED: SODIUM CHLORIDE 0.9% 250 ML BAG ONE (10:16)
[2024-09-28] MEDS ORDERED: diphenhydrAMINE 25 MG CAP PO PRN (12:59)
[2024-09-28] MEDS ORDERED: LANOLIN CREAM 1 GM TUBE TOPICAL PRN (12:59)
[2024-09-28] MEDS ORDERED: HYDROCORTISONE 2.5% RECTAL CREAM 30 GM TUBE RECTAL PRN (12:59)
[2024-09-28] MEDS ORDERED: SIMETHICONE 80 MG CHEWABLE PO PRN (12:59)
[2024-09-28] MEDS ORDERED: ZOLPIDEM 5 MG TAB PO PRN (12:59)
[2024-09-28] MEDS ORDERED: diphenhydrAMINE 50 MG CAP PO PRN (12:59)
[2024-09-28] MEDS ORDERED: BENZOCAINE/MENTHOL SPRAY 1 GM/SPRAY AEROSOL TOPICAL PRN (12:59)
[2024-09-28] MEDS ORDERED: diphenhydrAMINE 50 MG/ML 1 ML VIAL IVP PRN ×2 (12:59)
[2024-09-28] MEDS: IBUPROFEN 800 MG TAB PO SCH (13:15)
[2024-09-28] MEDS: ACETAMINOPHEN TAB 500 MG TAB PO SCH (17:00)
[2024-09-28] MEDS: SENNOSIDES-DOCUSATE SODIUM 1 EACH TAB PO SCH (21:10)
--- NOTE | 2024-09-29 07:07 | P.PNOBGVD ---
Subjective - Subjective Principal diagnosis: s/p vaginal delivery Interval history: The patient is doing well this morning and had no acute events overnight. She has no complaints this morning. She reports minimal lochia, passing flatus, voiding without difficulty, ambulating, and eating/drinking without nausea or vomiting. She is her without difficulty. She denies chest pain, shortness of breathing, fevers, or chills overnight. She denies pain or swelling in the legs. Patient reports: Reports appetite normal, Reports voiding normally, Reports pain well controlled, Reports ambulating normally : doing well Objective - Latest Vital Signs Latest vital signs: Vital Signs Temp Pulse Resp BP Pulse Ox 09/29/24 00:00 96 16 109/76 100 09/28/24 16:00 98.2 F 90 15 116/70 99 09/28/24 14:20 97.9 F 105 H 15 121/68 09/28/24 14:05 103 H 16 117/70 09/28/24 13:50 99 15 117/72 09/28/24 13:35 94 15 112/72 09/28/24 13:20 94 15 113/71 09/28/24 13:05 93 16 118/74 09/28/24 12:50 92 15 123/73 09/28/24 12:35 90 15 116/71 09/28/24 12:20 97.5 F L 89 16 127/75 Intake and Output 09/28/24 09/29/24 09/29/24 22:59 06:59 14:59 Other: # Voids 1 2 - Exam Extremities: Present: normal Abdomen: Present: normal appearance, soft Uterus: Present: normal, firm - Labs Labs: Abnormal Lab Results - Last 24 Hours (Table) 09/28/24 Range/Units 06:59 Hgb 10.7 L (11.4-16.0) gm/dL MCV 69.7 L (80.0-100.0) fL MCH 21.9 L (25.0-35.0) pg RDW 16.8 H (11.5-15.5) % Assessment and Plan Assessment: 24 year old now PPD#1 s/p Plan: 1. . Patient meeting all milestones appropriately. 2. Viable female . In nursery for temp instability. Dispo: Anticipate discharge home tomorrow.
[2024-09-29 07:36] LABS: Anisocytosis Slight; Basophils % (A) 0 %; Eosinophils # (A) 0.2 k/uL (0-0.7); Eosinophils % (A) 2 %; HCT 28.3 % (34.0-46.0); Hypochromasia Marked; Lymphocytes # (A) 2.4 k/uL (1.0-4.8); Lymphocytes % (A) 25 %; MCH 22.1 pg (25.0-35.0); MCHC 31.1 g/dL (31.0-37.0); MCV 70.9 fL (80.0-100.0); Mean Platelet Volume 9.5; Microcytosis Moderate; Monocytes # (A) 0.4 k/uL (0-1.0); Monocytes % (A) 4 %; Neutrophils # (A) 6.5 k/uL (1.3-7.7); Neutrophils % (A) 68 %; Platelet Count 224 k/uL (150-450); Poikilocytosis Moderate; RBC 3.99 m/uL (3.80-5.40); RDW 16.8 % (11.5-15.5); WBC 9.6 k/uL (3.8-10.6)
[2024-09-29 07:38] LABS: HGB 8.8 gm/dL (11.4-16.0)
--- NOTE | 2024-09-30 08:55 | P.DS ---
Providers Date of admission: 09/28/24 06:46 Expected date of discharge: 09/30/24 Attending physician: Kena Bahena MD Primary care physician: Stated None Hospital Course: 24 year old now PPD#2 s/p . The patient is doing well this morning and had no acute events overnight. She has no complaints this morning. She reports minimal lochia, passing flatus, voiding without difficulty, ambulating, and eating/drinking without nausea or vomiting. doing well at bedside. She denies chest pain, shortness of breathing, fevers, or chills overnight. She denies pain or swelling in the legs. restrictions are reviewed with the patient including pelvic rest for 6 weeks. The patient is encouraged to call the office if she experiences any heavy bleeding, foul-smelling discharge, breast complaints, or any if she has any other concerns. She will follow up in the office with in 6 weeks for exam. All questions are answered. Patient Condition at Discharge: Good Plan - Discharge Summary New Discharge Prescriptions: New Enoxaparin [Lovenox] 40 mg SQ DAILY 30 Days each No Action Pnv No.154/Iron Fum/Folic Acid [ Plus Vitamin Tablet] 1 tablet PO DAILY Enoxaparin [Lovenox] 0.4 injection SQ DAILY Discharge Medication List Enoxaparin [Lovenox] 0.4 injection SQ DAILY 09/28/24 [History] Pnv No.154/Iron Fum/Folic Acid [ Plus Vitamin Tablet] 1 tablet PO DAILY 09/28/24 [History] Enoxaparin [Lovenox] 40 mg SQ DAILY 30 Days each 09/30/24 [Rx] Follow up Appointment(s)/Referral(s): Kena Bahena MD [STAFF PHYSICIAN] - 11/09/24 1:15 pm Activity/Diet/Wound Care/Special Instructions: Instructions 1. Do not begin any exercise program for 3 weeks. 2. Do not resume sexual relations for 6 weeks or longer if uncomfortable. 3. You may take tub baths or showers at any time. 4. You may use tampons if desired after 6 weeks. 5. Keep any areas repaired with stitches clean and dry. 6. If you are not nursing, wear a good fitting, supportive bra during the day and limit fluid intake for at least 1 week to prevent breast engorgement. 7. Call the office, , within the next week to make appointment for your 6 week checkup if it has not already been made. 8. Report any of the following occurrences to the doctor promptly: a. Heavy, excessive bleeding b. Chills, fever c. Burning or frequency of urination d. Pain or redness and breasts if nursing e. Increasing pain or swelling of vulva (stitches). In addition to the above instructions, the following additional should be followed: 1. No heavy lifting or straining (exercising) until after 6 week checkup. 2. Keep abdominal incision clean and dry: You may wear a dressing if more comfortable. 3. Make office appointment for 2 weeks after delivery date. Discharge Disposition: HOME SELF-CARE
[2024-09-30 09:36] VITALS: BP 92/57; PULSE 88; RESP 15; TEMP 97.9
--- NOTE | 2024-10-05 14:43 | P.PROBDLV ---
Vaginal Delivery Note - . Vaginal Delivery Note: DATE OF SERVICE: 09/28/2024 PROCEDURE: Normal Vaginal Delivery ATTENDING: Dr. Kena Bahena MD ESTIMATED BLOOD LOSS: 200 mL FINDINGS: VFI, Apgars 9/10. Weight 2450 grams PROCEDURE: Ms. Ladd is a 24 year old at 37 weeks presenting to labor and delivery for medical induction of labor. The has been complicated by IUGR. For further details, please review the admitting H&P. Pitocin was titrated per protocol. She received epidural anesthesia per her request. She reached complete dilation. A viable female infant was delivered over an intact perineum. The infant was placed on the maternal abdomen and bulb suctioned. The was noted to be spontaneously crying. Cord was clamped and cut after a 5- minute delay per patient request. The infant was handed off to the pediatric team. Placenta was delivered whole with gentle cord traction. Oxytocin was started to facilitate uterine tone. Uterine fundus was found to be firm and below the umbilicus upon fundal massage. Thorough examination of the cervix, vagina, periurethral area, and perineum revealed no lacerations. The patient is stable and allowed to begin the bonding process.
== END 2024-09-30 16:00 | disposition home or self-care (01) | DRG 807 ==
LOC: 4FBP 06:46
PROVIDERS: ADMIT Obstetrics & Gynecology; ATTEND Obstetrics & Gynecology
PROC: 10E0XZZ Delivery of Products of Conception, External Approach (ICD-10-PCS; principal; 2024-09-28)
PROC: 3E033VJ Introduction of Other Hormone into Peripheral Vein, Percutaneous Approach (ICD-10-PCS; principal; 2024-09-28)
DX: O36.5930 Maternal care for other known or suspected poor fetal growth, third trimester, not applicable or unspecified (principal); Z37.0 Single live birth; O99.344 Other mental disorders complicating childbirth; F32.A Depression, unspecified; F41.9 Anxiety disorder, unspecified; Z3A.37 37 weeks gestation of pregnancy; Z82.49 Family history of ischemic heart disease and other diseases of the circulatory system; Z86.711 Personal history of pulmonary embolism; Z86.73 Personal history of transient ischemic attack (TIA), and cerebral infarction without residual deficits
CPT/HCPCS: 85025; 86850; 86900; 86901